=== PATIENT | male | born 1975 | race Caucasian/White ===

== ENCOUNTER 2020-03-18 14:35 | Emergency (ER) | payer MEDICARE, SELFPAY ==
[2020-03-18 14:36] VITALS: BP 128/81; PULSE 70; RESP 16; TEMP 36.6; O2SAT 100; BMI 21.7
--- NOTE | 2020-03-18 15:27 | ED.VISSUMM ---
- ER Visit Summary Date of Service: 03/18/20 Chief Complaint: Seizure History of Present Illness: The patient is a 45 M who presents after a seizure that occurred today. Patient has a history of seizures. Patient and family reports that the seizure only lasted a few seconds. Family states that when they got to the room where he was and he was already starting to wake up and try to stand. Patient denies biting his tongue. Patient denies any urinary or stool incontinence. Patient does admit to a scalp laceration on the right occipital area. Patient states he saw his neurologist 2 weeks ago and had levels of his medications drawn at that time and they were normal. Physical Examination: Vital signs are stable. Patient is afebrile. Patient is in no acute distress. Cranial nerves II through XII are intact. Strength is 5/5 bilateral in the upper and lower extremities. There are no sensory deficits noted. Heart was regular rate and rhythm. Lungs are clear and equal bilaterally. Abdomen is soft. Bowel sounds are normal. There is no tenderness. Extremities are intact. There is no calf tenderness or edema. Skin is warm and dry. There is a 2 cm full-thickness linear laceration over the right occipital scalp area. There is no bony crepitance or step-off. There are no foreign bodies noted. There is no active bleeding. Emergency Department Course and Treatment: I discussed obtaining levels of his Depakote and Dilantin with the patient and his spouse. They do not want to have levels drawn at this time since they were just drawn 2 weeks ago and were normal. I do not feel the patient needs a CT scan of his head at this time since he is not on any anticoagulants. The wound was cleaned and irrigated with copious amounts of normal saline. The wound was anesthetized with 1% lidocaine with epinephrine locally. The wound was closed with 4 saira under sterile technique. Patient tolerated the procedure well. Bacitracin dressing was applied. She was instructed to follow-up with his primary care physician in 5 to 7 days for wound recheck and staple removal. Patient and family understood and were agreeable with the plan. All questions were answered. Disposition: Discharge home Impression: 1. Scalp laceration 2. Seizure This note was generated with [employer] software. It may contain incorrect words, spelling, and punctuation that were not noted in review of the chart prior to signing ED Disposition - Plan for ED Patient: Disposition: Home or Assisted Living Diagnosis: Occipital scalp laceration, Seizure Instructions: ED Laceration: All Closures, ED Seizure, Recurrent (Adult) Additional Instructions: Follow-up with your primary care physician in 5 to 7 days for wound recheck and able removal. Return if worse in any way.
[2020-03-18] MEDS: Lidocaine 1% /Epi 1:100 (20ml) 20 ML Vial INFILT (15:36)
[2020-03-18 16:09] VITALS: PULSE 73; RESP 18; O2SAT 98
--- NOTE | 2020-03-18 16:10 | ED.RN ---
THIS NURSE REVIEWED D/C INSTRUCTIONS WITH PT AND . PT VERBALIZED UNDERSTANDING OF INSTRUCTIONS. PT DENIES FURTHER NEEDS OR QUESTIONS AT THIS TIME. PT AMBULATES FROM ROOM ON OWN WITHOUT ASSISTANCE FROM STAFF
== END 2020-03-18 16:09 | disposition home or self-care (01) ==
LOC: ED 16:16
PROVIDERS: Emergency Provider Emergency Medicine
DX: S01.01XA Laceration without foreign body of scalp, initial encounter (principal); G40.909 Epilepsy, unspecified, not intractable, without status epilepticus; X58.XXXA Exposure to other specified factors, initial encounter; Y93.9 Activity, unspecified; Y92.9 Unspecified place or not applicable; Z79.899 Other long term (current) drug therapy
CPT/HCPCS: 12001; 99283

== ENCOUNTER → 2023-06-26 | Outpatient (CLI) | payer MEDICARE, SELFPAY | END | disposition home or self-care (01) | DX: G47.33 Obstructive sleep apnea (adult) (pediatric) (principal) | CPT/HCPCS: 95810 ==

== ENCOUNTER 2024-01-03 14:21 | Emergency (ER) | payer MEDICARE, SELFPAY ==
[2024-01-03 14:23] VITALS: BP 105/79; PULSE 94; RESP 18; TEMP 36.4; O2SAT 97; BMI 23.5
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
--- NOTE | 2024-01-03 14:42 | CT_ITS ---
EXAM: CT HEAD WITHOUT INTRAVENOUS CONTRAST CLINICAL INDICATION: Head injury TECHNIQUE: Multiple axial images were obtained of the head without intravenous contrast. This CT exam was performed using one or more of the following dose reduction techniques: automated exposure control, adjustment of the mA and/or kV according to patient size, and/or use of iterative reconstruction technique. COMPARISON: No relevant prior studies available. FINDINGS: BRAIN AND EXTRA-AXIAL SPACES: Normal. Normal brain attenuation. No intra- or extra-axial hemorrhage. No acute infarct. No intracranial mass or mass effect. There is preservation of the edmond/white matter interface. Posterior fossa structures are unremarkable. Ventricles are appropriate for age. No hydrocephalus. Basal cisterns are patent. BONES/JOINTS: Normal calvarium. SINUSES: No acute sinusitis. MASTOID AIR CELLS: Normal. Clear. CT/Brain/Head without Contrast IMPRESSION: Normal CT brain without intravenous contrast. Electronically Signed: Don Nielson MD at 16:11 EDT ,
[2024-01-03 15:20] LABS: Valproic Acid (Depakene) Level 58 ug/mL (50-100)
[2024-01-03 15:43] LABS: Phenytoin (Dilantin) Level 17.6 mL (10.0-20.0)
[2024-01-03 16:22] VITALS: BP 96/66; PULSE 90; RESP 16; O2SAT 98
[2024-01-03 16:36] VITALS: BP 100/74; PULSE 82; RESP 16; TEMP 36.7; O2SAT 98
== END 2024-01-03 16:37 | disposition home or self-care (01) ==
PROVIDERS: Emergency Provider Emergency Medicine; Visit Provider Emergency Medicine
DX: R56.9 Unspecified convulsions (principal); S00.91XA Abrasion of unspecified part of head, initial encounter; V18.0XXA Pedal cycle driver injured in noncollision transport accident in nontraffic accident, initial encounter
CPT/HCPCS: 70450; 80164; 80185; 99283

== ENCOUNTER → 2024-02-06 | Outpatient (CLI) | payer MEDICARE, SELFPAY ==
[2024-02-09 17:08] LABS: Topiramate 10.2 ug/mL (2.0-25.0)
== END | disposition home or self-care (01) ==
DX: G62.9 Polyneuropathy, unspecified (principal); G60.9 Hereditary and idiopathic neuropathy, unspecified
CPT/HCPCS: 36415; 80201

== ENCOUNTER → 2024-03-20 | Outpatient (CLI) | payer MEDICARE, SELFPAY ==
--- NOTE | 2024-03-20 08:38 | BD_ITS ---
STUDY: DUAL ENERGY X-RAY ABSORPTIOMETRY / DXA REASON FOR EXAM: Male, 49 years old. M85.89 TECHNIQUE: Bone Mineral Density (BMD) measurements of lumbar spine and bilateral hips were obtained. COMPARISON: None. FINDINGS: Lumbar Spine (L1-L4): g/cm2 (1.185) / T-score (0.9) / Z-score (1.2) Findings are suggestive of normal bone density with a low fracture risk. Left Femur Total: g/cm2 (0.911) / T-score (-0.8) / Z-score (-0.5) Left Femoral Neck: g/cm2 (0.766) / T-score (-1.2) / Z-score (-0.4) Right Femur Total: g/cm2 (0.929) / T-score (-0.7) / Z-score (-0.4) Right Femoral Neck: g/cm2 (0.776) / T-score (-1.1) / Z-score (-0.4) BD/Dexa Bone Density Study IMPRESSION: The patient is considered osteopenic as outlined below according to World Arash Organization (WHO) criteria with a low fracture risk. Reference Information: The T-score is the number of standard deviations above or below the standard which is normal for young adults at their peak bone mineral density. The World Health Organization (WHO) interprets the T-scores as follows: Above -1 Normal bone density Between -1 and -2.5 Osteopenia Equal to / or below -2.5 Osteoporosis As a practical clinical guideline, osteopenia may be graded as follows: Mild -1 through -1.5 Moderate -1.6 through -2.0 Severe -2.1 through -2.4 The Z-score is the number of standard deviations above or below age-matched controls. A Z-score of less than -1.5 would be considered abnormal. References: 1. NIH Osteoporosis and Related Bone Diseases www osteo.org 2. International Society for Clinical Densitometry www iscd.org 3. National Osteoporosis Foundation www nof.org Electronically Signed: Jin Aragon MD at 12:35 EST ,
== END | disposition home or self-care (01) ==
LOC: OPBD 08:32
DX: M81.8 Other osteoporosis without current pathological fracture (principal); T50.905A Adverse effect of unspecified drugs, medicaments and biological substances, initial encounter; M85.859 Other specified disorders of bone density and structure, unspecified thigh; M85.88 Other specified disorders of bone density and structure, other site
CPT/HCPCS: 77080

== ENCOUNTER 2024-08-17 18:10 | Emergency (ER) | payer MEDICARE, SELFPAY ==
[2024-08-17 18:11] VITALS: BP 111/85; PULSE 90; RESP 18; TEMP 36.2; O2SAT 99; BMI 25.4
--- NOTE | 2024-08-17 18:22 | CT_ITS ---
PROCEDURE: BRAIN/HEAD WITHOUT CONTRAST 08/17/2024 REASON FOR EXAM: HEAD INJURY TECHNIQUE: Head CT without intravenous contrast. Coronal and Sagittal reconstruction series were provided. One or more dose reduction techniques were used (e.g., Automated exposure control, adjustment of the mA and/or kV according to patient size, use of iterative reconstruction technique. COMPARISON: None FINDINGS: * ACUTE: No acute infarct or hemorrhage. No mass effect or herniation. * BRAIN PARENCHYMA: Signal intensities are within normal limits for age. * VENTRICLES/EXTRA-AXIAL SPACES: No hydrocephalus or extra-axial fluid collections. * EXTRACRANIAL STRUCTURES: Visualized osseous structures are normal. Soft tissues are normal. CT/Brain/Head without Contrast IMPRESSION: No acute intracranial abnormality. Reading Location: BILL
--- NOTE | 2024-08-17 18:27 | EDS_ITS ---
HPI History of Present Illness Chief Complaint: Head Injury Informant: patient, spouse/S.O. and family Narrative Narrative: Here with spouse and daughter for evaluation head injury. 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 He is on Topamax, Depakote, Dilantin. He remembers walking outside due to being a nice day, he few blocks away. However cannot tell me be clear. Oriented. and daughter were out of town in [place] they came back he was in his bed and noted blood. They report it happened before with absence seizure's. He is back to normal. They state he did not have a tonic-clonic event as he would show different symptoms. Tetanus unknown. Reported little over a week ago his Dilantin level was high they readjusted his medications. He is compliant with medications. No recent illness. Tetanus Immunization: Unknown Prior similar symptoms: Yes [facility] Medical History Seizure Epilepsy Home Medications ?Medication ?Instructions ?Recorded ?Last Taken ?Type calcium 600 mg (as 1 ea PO DAILY 03/18/20 Unkno wn History carbonate)-vitamin D3 10 mcg (400 unit) capsule cetirizine 10 mg tablet 10 mg PO DAILY 03/18/20 Unkn own History divalproex 500 mg tablet,extended See Rx Instructions PO BID 03/18/20 Unknown History release 24 hr [id number]-ywlpdlrdr-vaq C-Mn 750 1 ea PO DAILY 03/18 Unknown History mg-600 mg-55 mg-5 mg tablet phenytoin sodium extended 100 mg 200 mg PO .COMPLEX Unknown History capsule topiramate 200 mg tablet 600 mg PO BID 03/18/20 Unkno wn History clorazepate dipotassium 3.75 mg 3.75 mg PO BID 5 Unknown History tablet multivitamin (Daily Multi-Vitamin 1 tab PO DAILY 08/17 Unknown History tablet) Allergy/AdvReac Type Severity Reaction Status Date / Time No Known Allergies Allergy Verified 08/17/24 18:11 Surgical History S/P placement of VNS (vagus nerve stimulation) device Social History Smoking Status: Never smoker ROS ROS ED Constitutional Constitutional ED: Denies chills, fever(s) or sweats ENT ENT ED: Denies sore throat Cardiovascular Cardiovascular: Denies chest pain, leg edema, palpitations or racing heartbeat Respiratory/Chest Respiratory/Chest: Denies cough, dyspnea or dyspnea on exertion Gastrointestinal Gastrointestinal: Denies abdominal pain, diarrhea, nausea or vomiting Genitourinary Genitourinary ED: Denies dysuria, hematuria or urinary frequency Musculoskeletal Musculoskeletal: Denies back pain, extremity pain or neck pain Integumentary Reports wounds; Denies rash Neurologic Neurologic: Denies headache(s), paresthesias or weakness EXAM Physical Exam Const Vital Signs: 08/17/24 18:11 08/17/24 18:33 08/17/24 20:40 Temperature 97.1 F L 97.8 F Temperature Source Temporal Pulse Rate 90 84 Respiratory Rate 18 16 Respiratory Effort Normal Respiratory Depth Normal Respiratory Pattern Normal Blood Pressure 111/85 H 113/74 Blood Pressure Mean 93 87 Pulse Ox 99 99 Oxygen Delivery Method Room Air Room Air Positive well nourished and well developed Constitutional Narrative: GCS 15. General Appearance ED: well developed and NAD HEENT Reports TM's clear and moist mucous membranes HEENT Narrative: 5 cm horizontal laceration posterior scalp above the occiput, there was no active bleeding. No tongue abrasion or laceration. normocephalic and atraumatic Tympanic Membrane ED: Yes TM's clear Eyes General Eye ED: Yes normal appearance of both eyes Neck full ROM Neck Narrative: No midline tenderness or step-offs. Chest Wall inspection of chest normal and palpation of chest normal Chest: Negative for tenderness Resp normal respiratory effort and normal air movement Effort and Inspection: symmetric chest movement; Negative for respiratory distress Cardio regular rate, regular rhythm and no murmurs Peripheral Pulses: pulses 2+ throughout GI normal to inspection, nondistended, normoactive bowel sounds and non-tender Palpation: Negative for guarding or rebound tenderness present Extremity normal to inspection General Extremety ED: Negative for edema or tenderness General Extremity: Negative for edema Neuro oriented x3, CN's II-XII intact bilaterally and no sensory deficits noted Sensorium / Orientation: awake and alert Skin Skin Narrative: See above MDM MDM MDM Narrative Medical decision making narrative: Interventions / MDM: Differential diagnosis: Closed head injury, scalp laceration, history of seizure disorder Diagnosis considered but do not suspect: Intracranial hemorrhage/fracture however CT negative. My EKG interpretation: N/A Imaging independently reviewed and interpreted by myself: CT brain: No acute process also read by radiology. External documents reviewed: N/A Test considered but not ordered:N/A ED course: Patient tetanus updated. 5 cm laceration with no active bleeding. Will place let cream, will send for CT head. Will check levels of his Depakote and Dilantin with history of recent toxicity. 191: CT brain interpreted myself no intracranial hemorrhage. Awaiting final read. Wound was stapled total of 6 saira. Procedure note: Verbal consent. Normal sterile conditions. Normal saline cleanse of wound after let cream. A total of 6 saira placed to the wound with good approximation. Patient tolerated the procedure well. 1950: Labs therapeutic Dilantin 14.5, slightly subtherapeutic valproic acid 44. CT brain negative. Per spouse, he was similar levels last time seeing his neurologist and they state to continue with current medications. She did not want additional doses at this time. He is due for his dose at 9:00 for which he will take at home. Wound care discussed. Outpatient follow-up with his doctor in 10 days for staple removal. All questions were answered. Patient and family Re-evaluation: stable Disposition discussed with patient/family/significant other: Case discussed with consulting clinician: N/A This note was generated with [employer] dictation software. It may contain incorrect words, spelling, and punctuation that were not noted in checking the note before signing. Lab Data Labs: Laboratory Results - last 24 hr 08/17/24 18:32 Phenytoin 14.5 Valproic Acid 44 L Radiography Diagnostic Testing: Clinical Impression(s) from Imaging Studies Brain CT 08/17/24 18:22 IMPRESSION: No acute intracranial abnormality. Reading Location: [facility] Discharge Plan Triage Chief Complaint: Head Injury ED Provider: Joesph Vivar Dx/Rx/DC Orders Clinical Impression: CHI (closed head injury), Laceration of scalp, Tetanus toxoid vaccination administered at current visit, Seizure disorder Instructions: ED Head Injury (Adult), ED Laceration Scalp Stitches or [place] Prescriptions: No Action cetirizine 10 MG tablet 10 mg PO DAILY phenytoin sodium extended 100 MG capsule 200 mg PO .COMPLEX Rx Instructions: 200 mg orally 100 mg on odd days and 200 mg on even days. 200 mg every night; divalproex 500 MG tablet extended release 24 hr See Rx Instructions PO BID Rx Instructions: 1,000 mg in the morning and 1500 mg at night orally twice a day; topiramate 200 MG tablet 600 mg PO BID [id number]-mccozhqus-ggv C-Mn 1 EACH tablet 1 ea PO DAILY calcium carbonate-vitamin D3 1 EACH capsule 1 ea PO DAILY multivitamin [Daily Multi-Vitamin] Tablet 1 tab PO DAILY clorazepate dipotassium 3.75 mg tablet 3.75 mg PO BID Primary Care Provider: EDIL GONZALEZ Referrals: EDIL GONZALEZ [Other] - Keep [facility] appointment Activity Restrictions/Additional Instructions: CT brain negative. 6 saira were placed. Dilantin level 14.5. Depakote level 44. Follow-up with your PCP in 10 days for staple removal. Print Language: Kittitian Disposition Disposition: Home, Self Care Discharge Date/Time: 08/17/24 20:41
[2024-08-17] MEDS: Lidocaine/Epi/Tetracaine 50 ML 1 APPLIC TOPICAL (18:28)
[2024-08-17] MEDS: Diphth,Pertuss(Acell),Tet Vac 0.5 ML Vial IM (18:46)
[2024-08-17 19:15] LABS: Phenytoin (Dilantin) Level 14.5 ug/mL (10.0-20.0); Valproic Acid (Depakene) Level 44 ug/mL (50-100)
[2024-08-17 20:40] VITALS: BP 113/74; PULSE 84; RESP 16; TEMP 36.6; O2SAT 99
== END 2024-08-17 20:41 | disposition home or self-care (01) ==
PROVIDERS: Emergency Provider Emergency Medicine; Visit Provider Emergency Medicine
DX: S09.90XA Unspecified injury of head, initial encounter (principal); G40.909 Epilepsy, unspecified, not intractable, without status epilepticus; S01.01XA Laceration without foreign body of scalp, initial encounter; Z23 Encounter for immunization; Z79.899 Other long term (current) drug therapy
CPT/HCPCS: 12002; 70450; 80164; 80185; 90715; 99283

== ENCOUNTER → 2024-10-03 | Outpatient (CLI) | payer MEDICARE, SELFPAY ==
[2024-10-03 12:46] LABS: Absolute Lymphocyte Count 1.56 X10^3/uL (0.83-4.51); Absolute Neutrophil Count 1.8 X10^3/uL (2.0-7.7); Basophil# 0.02 X10^3/uL; Basophil% 0.5 % (0-1); Eosinophil# 0.08 X10^3/uL; Hematocrit 41.8 % (40-54); Hemoglobin 14.2 g/dL (13.0-16.5); Lymphocyte # 1.56 X10^3/ul (0.83-4.51); Lymphocyte % 39.3 % (19-41); Mean Corpuscular Hgb 32.3 pg (27.0-32.0); Mean Platelet Vol. 10.7 fl (6.2-12.0); Monocyte# 0.51 X10^3/uL; Monocyte% 12.8 % (0-10); NRBC Flagged by Analyzer 0 % (0-5); Neutrophil # 1.79 X10^3/uL (2.7-7.7); Neutrophil % 45.1 % (47-70); Platelet Count 167 K/mm3 (150-450); RBC Distribution Width CV 11.9 % (11.6-14.6); RBC Distribution Width SD 41.9 fl (35.1-43.9)
[2024-10-03 14:21] LABS: ALB/GLOB Ratio 1.7 RATIO (0.9-2.4); AST(SGOT) 32 U/L (<=37); Alanine Aminotransfer ALT/SGPT 34 U/L (<=46); Albumin, Serum 4.1 g/dL (3.5-5.0); Alkaline Phosphatase 106 U/L (40-129); Anion Gap 11 (5-15); BUN 18 mg/dL (4-19); Calcium,Total 9.3 mg/dL (7.6-11.0); Carbon Dioxide 23.5 mmol/L (21.0-32.0); Chloride 106 mmol/L (98-108); Cholesterol 147 mg/dL (<=200); Creatinine, Serum 0.88 mg/dL (0.70-1.20); EST Glomerular Filtration Rate 104 (>60); Globulin 2.5 g/dL (2.2-4.2); Glucose 80 mg/dL (70-99); High Density Lipoprotein 51 mg/dL; Low Density Lipoprotein Calc. 69 mg/dL; Protein, Total 6.6 g/dL (5.9-8.4); Sodium Level 140 mmol/L (133-145); Total Bilirubin 0.44 mg/dL (0.00-1.30); Triglycerides 137 mg/dL; Very Low Density Lipoprotein 27 mg/dL (5-40); cholesterol:hdl ratio screen 2.88
--- OUTSIDE RECORDS SUMMARY | 2024-10-03 18:12 | XMS RPT_ITS | CCD ---
Author Organization [facility] Care Team Providers Care Box Icer Name Role Phone Mcarthur, Eb R Primary Care Provider [phone] David Enriquez Primary Care Provider Mcarthur, Eb R Primary Care Provider Pending Provider Unavailable Unavailable Mcarthur, Eb R Primary Care Provider Unavailable Unavailable Blue MCMAHON, Eb R Primary Care Physician Mcarthur, Eb R Primary Care Provider [phone] Mcarthur, Eb R Primary Care Provider Miranda Newman Unavailable Mcarthur DO, Eb Primary Care Provider [phone] MCARTHUR, EB R Primary Care Unavailable EDIL BRUSH Referring Unavailable MCARTHUR, EB R Primary Care Unavailable EDIL BRUSH Referring Unavailable MCARTHUR, EB R Primary Care Unavailable MCARTHUR, EB R Primary Care Unavailable REGINA CANTU Attending Unavailable MCARTHUR, EB R Primary Care Unavailable EDIL BRUSH Referring Unavailable Mainor Wesley Attending Unavailable Ralph Crews Attending Unavailable EDIL BRUSH Referring Unavailable German Castillo Attending Unavailable German Castillo Attending Unavailable German Castillo Admitting Unavailable EDIL BURSH Referring Unavailable EDIL BRUSH Attending Unavailable EDIL BRUSH Admitting Unavailable Mainor Wesley Attending Unavailable Dr. Joesph Vivar DO Emergency Provider EDIL BRUSH Primary Care Provider Blue FLORES, Eb Primary Care Provider [phone] EDIL BRUSH Attending Unavailable EDIL BRUSH Attending Unavailable EDIL BRUSH Attending Unavailable Dr. Joesph Vivar DO Attending Provider [phone] Diamond Diez MD Attending Provider EDIL BRUSH Primary Care Provider Unavailabl e EDIL BRUSH Referring Provider Unavailable HENNY, MAGI Referring Unavailable HENNY, MAGI Primary Care Unavailable HENNYZACKARY MODICE Attending Unavailable HENNY, MAGI Primary Care Unavailable Joesph Vivar Attending Unavailable Prateek Chavarria Attending Unavailable HENNY, MAGI Primary Care Unavailable HENNY, MAGI Referring Unavailable HENNY, MAGI Primary Care Unavailable Diamond Diez Attending Unavailable HENNY, MAGI Attending Unavailable HENNY, MAGI Referring Unavailable HENNY, MAGI Primary Care Unavailable Allergies Allergy Classification Reported Allergen(s) Allergy Type Date of Onset Reaction(s) Facility (2 sources) No Known Medication Allergies; Translations: [No Known Medication Allergies] Propensity to adverse reactions (disorder) [facility] Repository Medications Current Medications Medication Drug Class(es) Dates Sig (Normalized) Sig (Original) Calcium (6 sources) Phosphate Binder, Calcium Start: 03-03-2017 Calcium 600+D Oral, Daily, Refill(s) 0 Start Date: 03/03/17 Status: Ordered calcium carbonate 1500 mg oral tablet (12 sources) Start: 10-01-2024 take 1 tablet by mouth once daily Calcium Carbonate 600 mg calcium (1,500 mg) tablet Active 600 mg PO daily October 01, 2024 12:00am take 1 tablet by mouth once tory y calcium carbonate (OSCAL) 500 MG TABS tablet Take 500 mg by mouth daily 0 Active Calcium 600 MG T ABS Quantity: 0 Refills: 0 Ordered: 25-Oct-2018 DO Active take 1 tablet by mouth once tory y calcium carbonate (OSCAL) 500 MG TABS tablet Take 500 mg by mouth daily 0 Active carBAMazepine (4 sources) Mood Stabilizer CARBAMAZEPINE PO Take by mouth 0 Active cetirizine hydrochloride 10 mg oral tablet (20 sources) Histamine-1 Receptor Antagonist Start: 0 take 1 tablet by mouth once daily Cetirizine 10 MG tablet Active 10 mg PO DAILY March 18, 2020 1:00am Start: 03-03-2017 Zyrtec 10 mg, Daily, Refills(s) 0 Start Date: 03/03/17 Status: Ordered ZyrTEC Allergy 1 0 MG Oral Capsule Quantity: 0 Refills: 0 Ordered: 25-Oct-2018 DO Active Citric Acid-D Gluconic Acid powder (1 source) Start: 10-01-2024 Citric Acid-D Gluconic Acid powder Active NMA IRRIGATION October 01, 2024 12:00am clindamycin 150 mg oral capsule (1 source) Lincosamide Antibacterial Start: 03-03-2017 take 2 capsules by mouth four times daily clindamycin 150 mg Cap 300 mg = 2 cap(s), Oral, QID, # 56 cap(s), Refills(s) 0 Start Date: 03/03/17 Status: Ordered Cloraza (1 source) Start: 03-18-2020 take 3.75 mg by mouth once daily Cloraza Active 3.75 MG PO DAILY March 18, 2020 1:00am clorazepate dipotassium 3.75 mg oral tablet (20 sources) Benzodiazepine Start: 08-17-2024 take 1 tablet by mouth twice daily Clorazepate Dipotassium 3.75 mg tablet Active 3.75 mg PO TWICE A DAY August 17, 2024 12:00am Start: 07-25-2024 clorazepate (T ranxene) 3.75 MG tablet Indications: 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) 1 tab Q12 hours 180 tablet 1 07/25/2024 Active Start: 05-12-2023 End: 10-22-2024 take 1 tablet by mouth once clorazepate (Tranxene) 3.7 5 MG tablet Indications: 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) Take 1 tablet (3.75 mg) by mouth every 12 (twelve) hours 180 tablet 04/25/2024 07/24/2024 Discontinued (Reorder) fexofenadine hydrochloride 180 mg oral tablet (8 sources) Histamine-1 Receptor Antagonist take 1 tablet by mouth once daily fexofenadine (JERONIMO ALLERGY) 180 MG tablet Take 180 mg by mouth daily 0 Active Glucosamine Chondroitin Advanced (6 sources) Start: 7 Glucosamine Chondroitin Advanced BID, Refill(s) 0 Start Date: 03/03/17 Status: Ordered Glucosamine-Chondroit- Vit C-Mn (1 source) Start: 0 Glucosamine-Chondroi t-Vit C-Mn Active 1 EACH PO DAILY March 18, 2020 1:00am Glucosamine-Chondroit- Vit C-Mn (GLUCOSAMINE 1500 COMPLEX PO) (8 sources) Glucosamine-Marilu droi t-Vit C-Mn (GLUCOSAMINE 1500 COMPLEX PO) Take by mouth 0 Active Glucosamine-Chondroit- Vit C-Mn 1 EACH tablet (2 sources) Start: 0 take 1 tablet by mouth once daily Glucosamine-Chondroi t-Vit C-Mn 1 EACH tablet Active 1 NMA PO DAILY March 18, 2020 1:00am GLUCOSAMINE-CHONDROIT- VIT C-MN PO (12 sources) GLUCOSAMINE-MARILU DROI T-VIT C-MN PO Take by mouth Active Multiple Vitamin (Multi Vitamin Daily) tablet (12 sources) Multiple Vitamin (Multi Vitamin Daily) tablet 1 (one) time each day at the same time Active Multivitamin (Daily Multi-Vitamin) tablet (2 sources) Start: 5 Multivitamin (Daily Multi-Vitamin) tablet Active 1 {tbl} PO DAILY August 17, 2024 12:00am phenytoin sodium 100 mg extended release oral capsule (20 sources) Anti-epileptic Agent Start: 3 phenytoin (DILANTIN) ER capsule 100 mg Start: 03-18-2020 End: 10-01-2024 take 2 tablets by mouth once daily at bedtime Phenytoin Sodium Extended 100 mg capsule Active 100 mg PO .COMPLEX October 01, 2024 1:01pm 200 mg orally 2tabs qhs,; 1tab qod alternating w/ 2 tabs Start: 03-18-2020 Dilantin 100 M G capsule Indications: Epilepsy, generalized tonic-clonic, intractable (CMS/HCC) 2 caps Q12 hours 360 capsule 3 05/14/2024 Active Start: 03-18-2020 take 200 mg by mouth twice sue ly Phenytoin Sodium Extended Active 200 MG PO TWICE A DAY March 18, 2020 1:00am Start: 03-03-2017 take 2 capsules by m outh twice daily Dilantin 100 mg Cap-ER 200 mg = 2 cap(s), Oral, BID, Refills(s) 0 Start Date: 03/03/17 Status: Ordered topiramate 200 mg oral table t (20 sources) Start: 10-01-2024 Topiramate 200 mg tablet Active 600 mg PO .COMPLEX October 01, 2024 1:02pm 2tabs in the am 3tabs at night Start: 05-12-2023 topiramate (To pamax) 200 MG tablet Indications: Epilepsy, generalized tonic-clonic, intractable (CMS/HCC) 3 tabs Q12 180 tablet 5 07/05/2024 Active Start: 03-18-2020 take 600 mg by mouth twice daily Topiramate Active 600 MG PO TWICE A DAY March 18, 2020 1:00am Start: 03-03-2017 End: 10-01-2024 take 3 tablets by mouth twice daily Topiramate 200 MG tablet Discontinued 600 mg PO TWICE A DAY March 18, 2020 1:00am October 01, 2024 1:03pm 24 hr divalproex sodium 500 mg extended release oral tablet (20 sources) Mood Stabilizer, Anti-epileptic Agent Start: 10-01-2024 take 1 tablet by mouth twice daily in the morning, then take 3 tablets by mouth in the evening Divalproex 500 mg tablet extended release 24 hr Active 0 PO TWICE A DAY October 01, 2024 1:00pm 1250mg in the am, 1500mg pm 2.5tabs 3tabs Start: 05-14-2024 take 1 tablet by avril th every twenty-four hours, then take 2 tablets by mouth once daily in the morning, then take 3 tablets by mouth once daily in the evening Depakote ER 500 MG 24 hr tablet Indications: Epilepsy, generalized tonic-clonic, intractable (CMS/HCC) tablets Orally 2 QAM and 3 QPM for 90 days 450 tablet 3 05/14/2024 Active Start: 02-21-2024 take 1 tablet by avril th every twenty-four hours, then take 2 tablets by mouth once daily in the morning, then take 3 tablets by mouth once daily in the evening Depakote ER 500 MG 24 hr tablet Indications: Epilepsy, generalized tonic-clonic, intractable (CMS/HCC) tablets Orally 2 QAM and 3 QPM for 90 days 450 tablet 02/21/2024 Active Start: 05-12-2023 take 1 tablet by avril th every twenty-four hours, then take 2 tablets by mouth once daily in the morning, then take 3 tablets by mouth once daily in the evening Depakote ER 500 MG 24 hr tablet Indications: Epilepsy, generalized tonic-clonic, intractable (CMS/HCC) tablets Orally 2 QAM and 3 QPM for 90 days 450 tablet 3 05/12/2023 Active Start: 03-18-2020 End: 10-01-2024 Divalproex 500 MG tablet ext ended release 24 hr Discontinued 0 PO TWICE A DAY March 18, 2020 1:00am October 01, 2024 1:03pm 1,000 mg in the morning and 1500 mg at night orally twice a day; Start: 03-03-2017 take 2 tablets by ri ut twice daily Depakote ER 500 mg Tab-ER 1,000 mg = 2 tab(s), Oral, BID, Refills(s) 0 Start Date: 03/03/17 Status: Ordered take 3 tablets by mo ut twice daily divalproex (DEPAKOTE ER) 500 MG extended release tablet Take 3 tablets by mouth 2 times daily 0 Active take 2 tablets by ri ut twice daily Depakote 500 MG Oral Tablet Delayed Release TAKE 2 TABLETS TWICE DAILY Quantity: 0 Refills: 0 Ordered: 25-Oct-2018 DO Active Completed/Discontinued Medications Medication Drug Class(es) Dates Sig (Normalized) Sig (Original) calcium carbonate 1500 mg / cholecalciferol 0.01 mg oral capsule (3 sources) Vitamin D Start: 03-18-2020 End: 10-01-2024 Calcium Carbonate-Vitamin D3 1 EACH capsule Discontinued 1 NMA PO DAILY March 18, 2020 1:00am October 01, 2024 12:59pm Start: 03-18-2020 Calcium Carbon ate-Vitamin D3 Active 1 EACH PO March 18, 2020 1:00am cephalexin 500 mg oral capsule (3 sources) Cephalosporin Antibacterial Start: 11-30-2022 End: 12-07-2022 cephALEXin (KEFLEX) capsule 500 mg Start: 10-07-2021 take 1 capsule by mo ut twice daily Cephalexin 500 MG Oral Capsule Take 1 capsule twice daily Quantity: 6 Refills: 0 Ordered: 07-Oct-2021 Alice Herndon MD Start : 07-Oct-2021 Active Glucosamine Chondr 1500 Comp lx Oral Capsule (3 sources) Glucosamine Marilu dr 1500 Complx Oral Capsule Quantity: 0 Refills: 0 Ordered: 25-Oct-2018 DO Active Problems Active Problems Problem Classification Problem Date Documented Da te Episodic/Chronic Administrative/social admission (1 source) First encounter by subject; Translations: [Persons encountering health services in other specified circumstances] 10-01-2024 Episodic Deficiency and other anemia (3 sources) Other dietary vitamin B12 deficiency anemia; Translations: [Other dietary vitamin B12 deficiency anemia] Onset: 08-03-2023 Episodic Disorders of lipid metabolism (2 sources) Hyperlipidemia, unspecified; Translations: [Hyperlipidemia, unspecified] Onset: 08-03-2023 Chronic Epilepsy; convulsions (20 sources) Partial epilepsy with impairment of consciousness; Translations: [Localization-relate d (focal) (partial) epilepsy and epileptic syndromes with complex partial seizures, without mention of intractable epilepsy] Onset: 08-19-2002 02-27-2023 Chronic Epilepsy; convulsions (13 sources) Seizure; Translations: [Unspecified convulsions] Onset: 11-30-2022 01-08-2022 Episodic Headache; including migraine (2 sources) Headache; including migraine; Translations: [Headache, unspecified] Onset: 08-03-2023 Immunizations and screening for infectious disease (4 sources) Encounter for screening for infections with a predominantly sexual mode of transmission; Translations: [Tetanus toxoid vaccination given] Onset: 08-03-2023 Episodic Nutritional deficiencies (2 sources) Pyridoxine deficiency; Translations: [Pyridoxine deficiency] Onset: 08-03-2023 Episodic Open wounds of head; neck; and trunk (9 sources) Laceration of head; Translations: [Laceration without foreign body of unspecified part of head, initial encounter] Onset: 01-08-2022 Episodic Osteoporosis (5 sources) Osteoporosis; Translations: [Other osteoporosis without current pathological fracture] Onset: 04-22-2024 02-14-2024 Chronic Other aftercare (1 source) Surgical follow-up; Translations: [Encounter for removal of sutures] Onset: 02-27-2023 Episodic Other connective tissue disease (1 source) Pain in left lower limb; Translations: [Pain in left leg] Onset: 02-27-2023 Episodic Other connective tissue disease (2 sources) Myalgia, unspecified site; Translations: [Myalgia, unspecified site] Onset: 08-03-2023 Episodic Other injuries and conditions due to external causes (6 sources) Abrasion; Translations: [Other injury of unspecified body region, initial encounter] Episodic Other injuries and conditions due to external causes (2 sources) Unspecified injury of head, initial encounter; Translations: [Unspecified injury of head, initial encounter] Onset: 02-17-2023 Episodic Other injuries and conditions due to external causes (2 sources) Closed injury of head; Translations: [Unspecified injury of head, initial encounter] 08-17-2024 Episodic Other nervous system disorders (3 sources) Polyneuropathy, unspecified; Translations: [Polyneuropathy, unspecified] Onset: 08-03-2023 Chronic Other nervous system disorders (2 sources) Hereditary and idiopathic neuropathy, unspecified; Translations: [Hereditary and idiopathic neuropathy, unspecified] Onset: 08-03-2023 Chronic Other screening for suspected conditions (not mental disorders or infectious disease) (4 sources) Other specified abnormal findings of blood chemistry; Translations: [Encounter for screening for cardiovascular disorders] Onset: 08-03-2023 Episodic Peripheral and visceral atherosclerosis (2 sources) Generalized atherosclerosis; Translations: [Generalized atherosclerosis] Onset: 08-03-2023 Chronic Residual codes; unclassified (20 sources) Past history of procedure; Translations: [Other postprocedural status] Onset: 02-05-2023 02-05-2023 Chronic Residual codes; unclassified (18 sources) Obstructive sleep apnea syndrome; Translations: [Obstructive sleep apnea (adult) (pediatric)] Onset: 01-13-2012 02-05-2023 Chronic Superficial injury; contusion (2 sources) Abrasion of head; Translations: [Abrasion of unspecified part of head, initial encounter] 01-11-2024 Episodic Syncope (1 source) Syncope and collapse; Translations: [Syncope and collapse] Onset: 01-08-2022 Episodic Past or Other Problems Problem Classification Problem Date Documented Da te Episodic/Chronic Diseases of mouth; excluding dental (14 sources) Uvular hypertrophy; Translations: [Other lesions of oral mucosa] Onset: 02-05-2023 02-05-2023 Episodic E Codes: Fall (1 source) Unspecified fall, initial encounter; Translations: [Unspecified fall, initial encounter] Onset: 02-17-2023 Episodic Other bone disease and musculoskeletal deformities (18 sources) Osteopenia; Translations: [Other specified disorders of bone density and structure, multiple sites] Onset: 02-05-2023 02-05-2023 Episodic Other injuries and conditions due to external causes (1 source) Other injury of unspecified body region, initial encounter; Translations: [Other injury of unspecified body region, initial encounter] Onset: 11-30-2022 Episodic Skull and face fractures (7 sources) Closed fracture of nasal bones; Translations: [Fracture of nasal bones, initial encounter for closed fracture] Onset: 11-30-2022 Episodic Results Test Name Value Interpretation Reference Range Facility Internal Medicine Office Vis iton 09-30-2024 Internal Medicine Office Visit [facility] [address] [place] [address] [place] [address] OFFICE VISIT Date of Service: 10/01/24 MR#: [id number] Acct: [id number] Name: VAMSI JUAREZ Rep #: [id number] : 1975 Provider: Dr. 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 Person Required: No Accompanied by: Is patient in pain?: No Allergies No Known Allergies Allergy (Verified 10/01/24 12:54) Medications ???Medication ???Instructions ???Recorded ???Confirmed ???Type cetirizine 10 mg tablet 10 mg PO DAILY 03/18/20 10/01/24 H istory [id number]-[id number]-ktf C-Mn 750 1 ea PO DAILY 03/18/20 10/01/24 History mg-600 mg-55 mg-5 mg tablet clorazepate dipotassium 3.75 mg 3.75 mg PO BID 08/17/24 10/01/24 H istory tablet multivitamin (Daily Multi-Vitamin 1 tab PO DAILY 08/17/24 10/01/24 History tablet) calcium carbonate 600 mg PO QDAY 10/01/24 10/01/24 H istory citric acid-D gluconic acid ea irrigation 10/01/24 10/01/24 Hi story irrigation powder divalproex 500 mg tablet,extended See Rx Instructions PO BID 10/01/24 History release 24 hr phenytoin sodium extended 100 mg 100 mg PO .COMPLEX 10/01/24 History capsule topiramate 200 mg tablet 600 mg PO .COMPLEX 10/01/24 History Nurse's Note: See's Dr. Brush for neurology-[facility] alek cote. Sees [facility] for vagus nerve stimulator. Has appointment this fall for battery replacement. Previous PCP Dr. Mcarthur from [place]. Monday evening when he peed he had a few incidences of white squishy chunks upon urination. Pt did not have pain, flank pain, pressure, odor to urine,hematuria,pyuria prior. It has not happened before or since. [facility] Medical History (Updated 10/01/24 @ 13:[address] Diamond Diez MD) Sleep apnea Seizure Epilepsy Surgical History S/P vasectomy S/P nasal septoplasty H/O uvulectomy S/P placement of VNS (vagus nerve stimulation) device Family History Mother Gynecologic cancer Diabetes Hypertension Malignant hyperthermia due to anesthesia Hyperlipidemia Sleep apnea Macular degeneration Grandmother Macular degeneration Social History (Updated 10/01/24 @ 13:[address] 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 1. Little interest or pleasure in doing things: not at all 2. Feeling down, depressed, or hopeless: not at all 3. Trouble falling or staying asleep, or sleeping too much: not at all 4. Feeling tired or having little energy: not at all 5. Poor appetite or overeating: not at all 6. Feeling bad about yourself - or that you are a failure or have let yourself and your family down: not at all 7. Trouble concentrating on things, such as reading the newspaper or watching television: not at all 8. Moving or speaking so slowly that other people could have noticed? - Or the opposite - being so fidgety or restless that you have been moving around a lot more than usual: not at all 9. Thoughts that you would be better off or of hurting yourself in some way: not at all Total score: 0 If you checked off any problems, how difficult have these problems made it for you to do your work, take care of things at home, or get along with other people?: not difficult at all Source: Developed by Drs. Buck Aguilar, Katiana Hoskins, Zeferino Le and colleagues, with an educational nereida from [employer]. HPI HPI Details: VAMSI JUAREZ, is a 49 M who presents to the office today to establish care. He was seeing Dr. Mcarthur and last saw them about a year ago. He is due for some routine blood work and states he did a cologuard last year. He doesn't want any COVID/flu vaccines. He is otherwise up to date on his immunizations. (more content not included)... Normal [facility] Brain/Head without Contrasto n 08-17-2024 Brain/Head without Contrast [facility] Imaging Services [address] [place], [place] [id number] Brain/Head without Contrast MR#: [id number] Acct: [id number] Name: VAMSI JUAREZ Rep #: [id number] : 1975 M 49 From: Joaquín banda MD PCP: EDIL BRUSH Status: [facility] ER Study: Brain/Head without Contrast Date of Exam: 08/08 Exam# [id number] Ordering Dr: Joesph Vivar DO PROCEDURE: BRAIN/HEAD WITHOUT CONTRAST 08/17/2024 REASON FOR EXAM: HEAD INJURY TECHNIQUE: Head CT without intravenous contrast. Coronal and Sagittal reconstruction series were provided. One or more dose reduction techniques were used (e.g., Automated exposure control, adjustment of the mA and/or kV according to patient size, use of iterative reconstruction technique. COMPARISON: None FINDINGS: * ACUTE: No acute infarct or hemorrhage. No mass effect or herniation. * BRAIN PARENCHYMA: Signal intensities are within normal limits for age. * VENTRICLES/EXTRA-AXIAL SPACES: No hydrocephalus or extra-axial fluid collections. * EXTRACRANIAL STRUCTURES: Visualized osseous structures are normal. Soft tissues are normal. CT/Brain/Head without Contrast IMPRESSION: No acute intracranial abnormality. Reading Location: [facility] CC: Dr. Joesph Vivar DO; EDIL BRUSH Senior Project Architect: Signed Normal [facility] Emergency Department Summary on 08-17-2024 Emergency Department Summary [facility] Medical Records Department [address] [place] [id number] Emergency Department Summary 08/17/24 MR#: [id number] Acct: [id number] Name: VAMSI JUAREZ Rep #: [id number] : 1975 49 From: Joesph Bearden PCP: EDIL BRUSH Status:[facility] ER Location: ED HPI History of Present Illness Chief Complaint: Head Injury Informant: patient, spouse/S.O. and family Narrative Narrative: Here with spouse and daughter for evaluation head injury. 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 He is on Topamax, Depakote, Dilantin. He remembers walking outside due to being a nice day, he few blocks away. However cannot tell me be clear. Oriented. and daughter were out of town in [place] they came back he was in his bed and noted blood. They report it happened before with absence seizure's. He is back to normal. They state he did not have a tonic-clonic event as he would show different symptoms. Tetanus unknown. Reported little over a week ago his Dilantin level was high they readjusted his medications. He is compliant with medications. No recent illness. Tetanus Immunization: Unknown Prior similar symptoms: Yes [facility] Medical History Seizure Epilepsy Home Medications ???Medication ???Instructions ???Recorded ???Last Taken ???Type calcium 600 mg (as 1 ea PO DAILY 03/18/20 Unknown His tory carbonate)-vitamin D3 10 mcg (400 unit) capsule cetirizine 10 mg tablet 10 mg PO DAILY 03/18/20 Unknown Hi story divalproex 500 mg tablet,extended See Rx Instructions PO BID Unknown History release 24 hr rjpdbhglepf-cupytbeye-bze C-Mn 750 1 ea PO DAILY 03/18/20 Unknown H istory mg-600 mg-55 mg-5 mg tablet phenytoin sodium extended 100 mg 200 mg PO .COMPLEX 03/18/20 Unknow n History capsule topiramate 200 mg tablet 600 mg PO BID 03/18/20 Unknown His tory clorazepate dipotassium 3.75 mg 3.75 mg PO BID 08/17/24 Unknown Hi story tablet multivitamin (Daily Multi-Vitamin 1 tab PO DAILY 08/17/24 Unknown H istory tablet) Allergy/AdvReac Type Severity Reaction Status Date / Time No Known Allergies Allergy Verified 08/17/24 18:11 Surgical History S/P placement of VNS (vagus nerve stimulation) device Social History Smoking Status: Never smoker ROS ROS ED Constitutional Constitutional ED: Denies chills, fever(s) or sweats ENT ENT ED: Denies sore throat Cardiovascular Cardiovascular: Denies chest pain, leg edema, palpitations or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 6-46 [facility] Comment on above: Performed By: #### 2 [id number] #### [facility] [address] [place] [address] Anion gap [Moles/Vol] 10 mmol/L Normal 6-16 [facility] Comment on above: Performed By: #### 2 [id number] #### [facility] [address] [place] [address] AST [Catalytic activity/Vol] 24 Int._Unit/L Normal 5-43 [facility] Comment on above: Performed By: #### 2 [id number] #### [facility] [address] [place] [address] Bilirubin [Mass/Vol] 0.5 mg/dL Normal 0.0-1.1 [facility] Comment on above: Performed By: #### 2 [id number] #### [facility] [address] [place] [address] Calcium [Mass/Vol] 8.7 mg/dL Low 8.9-11.1 [facility] Comment on above: Performed By: #### 2 [id number] #### [facility] [address] [place] [address] Chloride [Moles/Vol] 111 mmol/L Normal 101-111 [facility] Comment on above: Performed By: #### 2 [id number] #### [facility] [address] [place] [address] CO2 [Moles/Vol] 24 mmol/L Normal 21-31 [facility] Comment on above: Performed By: #### 2 [id number] #### [facility] [address] [place] [address] Creatinine [Mass/Vol] 0.7 mg/dL Normal 0.5-1.3 [facility] Comment on above: Performed By: #### 2 [id number] #### [facility] [address] [place] [address] Globulin (S) [Mass/Vol] 2.4 g/dL Normal 1.4-4.0 [facility] Comment on above: Performed By: #### 2 [id number] #### [facility] [address] [place] [address] Glucose [Mass/Vol] 100 mg/dL Normal 55-199 [facility] Comment on above: Performed By: #### 2 [id number] #### [facility] [address] [place] [address] Potassium [Moles/Vol] 3.8 mmol/L Normal 3.5-5.3 [facility] Comment on above: Performed By: #### 2 [id number] #### [facility] [address] [place] [address] Protein [Mass/Vol] 6.4 g/dL Normal 6.0-7.8 [facility] Comment on above: Performed By: #### 2 [id number] #### [facility] [address] [place] [address] Sodium [Moles/Vol] 141 mmol/L Normal 135-145 [facility] Comment on above: Performed By: #### 2 [id number] #### [facility] [address] [place] [address] Urea nitrogen [Mass/Vol] 21 mg/dL Normal 5-21 [facility] Comment on above: Performed By: #### 2 [id number] #### [facility] [address] [place] [address] Urea nitrogen/Creatinine [Mass ratio] 30 No Units High 10-20 [facility] Comment on above: Performed By: #### 2 [id number] #### [facility] [address] [place] [address] CT Head or Brain w/o Contras ton 10-20-2023 CT Head or Brain w/o Contrast Exam Date/Time: 10/20/2023 10:42 EDT Reason for Exam: Head trauma, moderate-severe;Other (please specify) Report IMPRESSION: NO ACUTE INTRACRANIAL PROCESS. EXAMINATION: CT of the brain without contrast HISTORY: Head pain after trauma. Seizure. COMPARISON: CT brain 01/08/2022 TECHNIQUE: Multiple axial images were obtained of the brain from the skull base through the vertex. Multiplanar reformats were obtained. FINDINGS: Brain volume is age appropriate. Ventricular morphology is within normal limits. Voss-white matter differentiation is preserved. No acute hemorrhage or abnormal extra-axial fluid collection. Basal cisterns are patent. No mass effect or midline shift. The visualized paranasal sinuses and mastoid air cells are clear. Postsurgical laceration near the vertex. No radiopaque foreign body. Calvarium is intact. All CT scans at this facility use dose modulation, iterative reconstruction, and/or weight based dosing when appropriate to reduce radiation dose to as low as reasonably achievable. Ordering Provider: Mainor Wesley FINAL REPORT Dictated: 10/20/2023 10:48 am Buck Diaz DO Signed (Electronic Signature): 10/20/2023 10:48 am Signed by: Buck Diaz DO Transcribed by: DELORIS Technologist: TAMMY Normal [facility] CT Spine Cervical w/o Contra ston 10-20-2023 CT Spine Cervical w/o Contrast Exam Date/Time: 10/20/2023 10:42 EDT Reason for Exam: Neck trauma, dangerous injury mechanism;Other (please specify) Report IMPRESSION: NO ACUTE FRACTURE OR MALALIGNMENT. EXAM: CT SCAN OF THE CERVICAL SPINE HISTORY: Neck pain after trauma COMPARISON: CT cervical spine 01/08/2022 TECHNIQUE: Routine axial CT images and multiplanar reformatted images of the cervical spine were obtained. FINDINGS: No acute fracture or malalignment. Atlantodental interval is preserved. Cervical spine vertebral body heights are maintained. Intervertebral disc spaces are preserved. No prevertebral soft tissue swelling. Lung apices are clear. Vagal nerve stimulator noted. All CT scans at this facility use dose modulation, iterative reconstruction, and/or weight based dosing when appropriate to reduce radiation dose to as low as reasonably achievable. Ordering Provider: Mainor Wseley FINAL REPORT Dictated: 10/20/2023 10:53 am Buck Diaz DO Signed (Electronic Signature): 10/20/2023 10:53 am Signed by: Buck Diaz DO Transcribed by: DELORIS Technologist: TAMMY Normal [facility] Capillary Glucose POCon 10-08 Glucose [Mass/Vol] 109 mg/dL High 55-99 [facility] Comment on above: Performed By: #### 2 [id number] #### [facility] [address] [place] [address] Dilantinon 10-20-2023 Phenytoin Total 10.9 microgram/mL Normal 10.0-19.9 [facility] Comment on above: Performed By: #### 2 [id number] #### [facility] [address] [place] [address] ED Clinical Summaryon 2023 ED Clinical Summary ED Clinical Summary [address] [address] ED Clinical Summary Person Information Name: VAMSI JUAREZ [facility] Age: 48 Years : 1975 Sex: Male Language: American PCP: Eb Mcarthur III, DO Marital Status: Phone: [phone] Visit Id: Visit Reason: Scalp laceration; Fall; Seizure; FALL, HEAD INJURY Speciality: Acuity: 2 Enc Type: Emergency Med Service: Emergency Arrival: 10/20/2023 09:33:13 Discharge: 10/20/2023 12:56:58 LOS: 000 03:23 Checkin: 10/20/2023 09:33:13 Checkout: 10/20/2023 12:56:58 Dispo Type: Home (Routine DC) EVENTS: Event Name Event Status Request Date/Time Start Date/Time Complete Date/Time Arrive Complete 10/20/2023 09:33:13 10/20/2023 09:33:13 10/20/2023 09:33:13 Document Home Meds Request 10/20/2023 09:33:13 Triage Complete 10/20/2023 09:33:13 10/20/2023 09:40:57 10/20/2023 09:40:57 Bed Assign Complete 10/20/2023 09:34:30 10/20/2023 09:34:30 10/20/2023 09:34:30 Dr Exam Complete 10/20/2023 09:34:30 10/20/2023 09:34:42 10/20/2023 09:34:42 RN Exam Complete 10/20/2023 09:34:30 10/20/2023 10:47:43 10/20/2023 10:47:43 Registration Complete 10/20/2023 09:34:42 10/20/2023 09:38:23 10/20/2023 09:38:23 Patient Care Complete 10/20/2023 09:37:52 10/20/2023 10:48:14 Reg Complete Request 10/20/2023 09:38:23 Reg Bed Request Complete 10/20/2023 09:38:23 10/20/2023 09:38:23 10/20/2023 09:38:23 Pending Labs Complete 10/20/2023 09:44:06 10/20/2023 10:28:40 Lab Complete 10/20/2023 09:44:06 10/20/2023 10:28:40 Meds Admin Complete 10/20/2023 09:44:06 10/20/2023 10:49:28 CT Complete 10/20/2023 09:44:06 10/20/2023 10:08:40 10/20/2023 10:42:49 EKG Complete 10/20/2023 09:44:23 10/20/2023 09:57:50 Pending Labs Complete 10/20/2023 10:05:14 10/20/2023 10:05:14 10/20/2023 10:28:40 Lab Complete 10/20/2023 10:05:14 10/20/2023 10:05:14 10/20/2023 10:28:40 Pending Labs Complete 10/20/2023 10:05:55 10/20/2023 10:05:55 10/20/2023 10:05:56 Meds Admin Complete 10/20/2023 10:30:22 10/20/2023 11:43:30 Fall Risk Request 10/20/2023 10:47:44 Discharge Complete 10/20/2023 12:00:26 10/20/2023 12:57:04 10/20/2023 12:57:04 Pending Labs Complete 10/20/2023 12:11:41 10/20/2023 12:11:41 10/20/2023 12:11:42 Transfer Complete 10/20/2023 12:57:04 10/20/2023 12:57:04 10/20/2023 12:57:04 ADDRESS: [address] [place] [phone] PHYS DOC NOTES: MEDICAL INFORMATION: Prescriptions Given: Medications to Continue with No Changes Other Medications calcium-vitamin D (Calcium 600+D) By Mouth every day. cetirizine (Zyrtec) 10 Milligram every day. chondroitin/glucosamine/m ethylsulfonylmethane (Glucosamine Chondroitin Advanced) 2 times a day. divalproex sodium (Depakote ER 500 mg Tab-ER) 2 Tablets By Mouth 2 times a day. phenytoin (Dilantin 100 mg Cap-ER) 2 Capsules By Mouth 2 times a day. topiramate (Topamax 200 mg Tab) 3 Tablets By Mouth 2 times a day. PATIENT EDUCATION INFORMATION: Instructions: Sutures, [place], or Adhesive Wound Closure; Seizure, Adult, [id number]-[id number]; Head Injury, Adult, Bddf-[id number] Follow up: With: Address: When: EDIL BRUSH [address], [address] [address] [phone] Business (2) In 3 days 10/23/2023 With: Address: When: Eb Mcarthur [address] [place] [address] Business (1) Within 5 to 7 days Comments: for staple removal DIAGNOSIS: Scalp laceration; Seizure Normal [facility] ED Clinical Summary ED Clinical Summary [facility] [address] [place], [place] [address] ED Clinical Summary Person Information Name: VAMSI JUAREZ [place] Age: 48 Years : 1975 Sex: Male Language: American PCP: Eb Mcarthur III, DO Marital Status: Phone: [phone] Visit Id: Visit Reason: Scalp laceration; Fall; Seizure; FALL, HEAD INJURY Speciality: Acuity: 2 Enc Type: Emergency Med Service: Emergency Arrival: 10/20/2023 09:33:13 Discharge: LOS: 000 02:06 Checkin: 10/20/2023 09:33:13 Checkout: Dispo Type: EVENTS: Event Name Event Status Request Date/Time Start Date/Time Complete Date/Time Arrive Complete 10/20/2023 09:33:13 10/20/2023 09:33:13 10/20/2023 09:33:13 Document Home Meds Request 10/20/2023 09:33:13 Triage Complete 10/20/2023 09:33:13 10/20/2023 09:40:57 10/20/2023 09:40:57 Bed Assign Complete 10/20/2023 09:34:30 10/20/2023 09:34:30 10/20/2023 09:34:30 Dr Exam Complete 10/20/2023 09:34:30 10/20/2023 09:34:42 10/20/2023 09:34:42 RN Exam Complete 10/20/2023 09:34:30 10/20/2023 10:47:43 10/20/2023 10:47:43 Registration Complete 10/20/2023 09:34:42 10/20/2023 09:38:23 10/20/2023 09:38:23 Patient Care Complete 10/20/2023 09:37:52 10/20/2023 10:48:14 Reg Complete Request 10/20/2023 09:38:23 Reg Bed Request Complete 10/20/2023 09:38:23 10/20/2023 09:38:23 10/20/2023 09:38:23 Pending Labs Complete 10/20/2023 09:44:06 10/20/2023 10:28:40 Lab Complete 10/20/2023 09:44:06 10/20/2023 10:28:40 Meds Admin Complete 10/20/2023 09:44:06 10/20/2023 10:49:28 CT Complete 10/20/2023 09:44:06 10/20/2023 10:08:40 10/20/2023 10:42:49 EKG Complete 10/20/2023 09:44:23 10/20/2023 09:57:50 Pending Labs Complete 10/20/2023 10:05:14 10/20/2023 10:05:14 10/20/2023 10:28:40 Lab Complete 10/20/2023 10:05:14 10/20/2023 10:05:14 10/20/2023 10:28:40 Pending Labs Complete 10/20/2023 10:05:55 10/20/2023 10:05:55 10/20/2023 10:05:56 Meds Admin Request 10/20/2023 10:30:22 Fall Risk Request 10/20/2023 10:47:44 ADDRESS: [address] [place] [id number] PHYS DOC NOTES: MEDICAL INFORMATION: Prescriptions Given: Medications to Continue with No Changes Other Medications calcium-vitamin D (Calcium 600+D) By Mouth every day. cetirizine (Zyrtec) 10 Milligram every day. chondroitin/glucosamine/m ethylsulfonylmethane (Glucosamine Chondroitin Advanced) 2 times a day. divalproex sodium (Depakote ER 500 mg Tab-ER) 2 Tablets By Mouth 2 times a day. phenytoin (Dilantin 100 mg Cap-ER) 2 Capsules By Mouth 2 times a day. topiramate (Topamax 200 mg Tab) 3 Tablets By Mouth 2 times a day. PATIENT EDUCATION INFORMATION: Instructions: Head Injury, Adult, Ydcz-tl-[id number]; Seizure, Adult, Fbdj-hq-[id number]; Sutures, Saira, or Adhesive Wound Closure Follow up: With: Address: When: EDIL BRUSH [address], [address] [address] [phone] Business (2) In 3 days 10/23/2023 With: Address: When: Eb Najeraers [address] [place] [address] Business (1) Within 5 to 7 days Comments: for staple removal DIAGNOSIS: Scalp laceration; Seizure Normal [facility] ED Note-Physicianon 10-20-19 ED Note-Physician ED Note-Physician Basic Information Time Seen: Mainor Wesley DO 10/20/2023 09:34 Chief Complaint pt has hx of seizure with vagal nerve stimulator, sees dr morales. states think he had a seizure fell around 0900 at home with on stone in [facility]. denies blood thinners. pt arrived with ccollar in place. laceration on the back of head. History of Present Illness 48 male presents emergency department by EMS with what sounds like seizure. History somewhat limited as the patient is amnestic to this but does have history of seizure disorder. This occurred around 9:00 this morning he was out in the garage they are moving and he did have what sounds like seizure that led to a fall with head injury to his posterior occiput on the [facility]. Family then called for EMS. Patient's not on any blood thinner he does complain of a headache. EMS applied c-collar prior to arrival. He believes he is on either Depakote or Dilantin but cannot clearly articulate this it could be some postictal confusion. He is denying any chest pain difficulty breathing no abdominal pain no pain or injury to the upper or lower extremities no numbness or weakness he did not know this was coming on. He cannot tell me the last seizure he cannot tell me how long this seizure lasted. Last tetanus is unknown. No other aggravating or relieving factors no other associated symptoms no other prior treatments or complaints. Family: Reviewed and noncontributory Social: lives at home Review of systems negative unless otherwise specified in the HPI. Physical Exam Vitals & Measurements T: 37 ?C(Oral) HR: 80(Peripheral) RR: 16 BP: 114/79 SpO2: 99% HT: 183 cm WT: 76.2 kg BMI: 22.75 Nurses note and vital signs reviewed and noted. General: The patient appears well and in no apparent distress. Patient is resting comfortably on cart. GCS = 15. Skin: Patient does have vertically oriented 4 cm laceration to the posterior occiput consistent with stated history no gaping no step-off or crepitus appreciated no depression Head: Normocephalic, laceration as described above Neck: Supple, trachea mid-line, no tenderness, no lymphadenopathy. No cervical spinal tenderness. The patient has no step-offs or crepitus noted Eyes: PERRLA, EOMI ENT: No lu sign, no raccoon eyes, no blood in posterior oropharynx, no dental injuries Cardiovascular: Regular Rate and Rhythm, normal peripheral perfusion Respiratory: no distress, no accessory muscle use, no obvious wheezing Chest Wall: no tenderness, no flail chest, contusion, abrasion, or signs of trauma. Back: Back has no evidence of trauma, including contusion, abrasion, swelling or ecchymosis. The patient had no evidence of step-offs or crepitus noted. No tenderness to palpation. Musculoskeletal: normal ROM, no tenderness, no swelling. Pulses at femoral, DP, PT, and popiteal were 2+ bilaterally. Moves all four extremities in all modalities with 5/5 strength. GI: Soft, no tenderness to palpation, no masses appreciated. No rebound, guarding, or rigidity noted. Neurological: A&O, normal equal social services counselor strength, normal speech, normal coordination, normal motor, normal sensory. Psychiatric: Cooperative but a little bit confused may be consistent with postictal state Procedure Area was cleansed using soap and water. 4 saira were placed. Patient tolerated this procedure well educated on wound care and saira to be removed in 5-7 days. Medical Decision Making Workup in the ER has been reviewed and noted. CT of the brain and C-spine read by the radiologist as no acute pathology. Tetanus is updated here labs reviewed and noted. Patient does have low end of normal levels on Dilantin and Depakote therefore he is given small bolus of each. Family did arrive and states that this seizure did not last very long and was not a [place] seizure. They do not wish to change the medication dosing at this time and I think this is reasonable as they do have close follow-up with her neurologist. We did confirm that the patient takes the following medications: Dilantin 200 mg twice daily Depakote 1000 mg in the morning 1500 mg before bed Topamax 600 mg twice daily Laceration repaired with saira and family educated on wound care. C-collar is cleared clinically and radiographically and patient is discharged home to follow-up. Assessment/Plan Scalp laceration (S01.01XA: Laceration without foreign body of scalp, initial encounter) Seizure (R56.9: Unspecified convulsions) Orders: fosphenytoin + Sodium Chloride 0.9% intravenous solution 500 mL, 762 mg = 15.24 mL, Injection, IV Piggyback, Once, Stop date 10/20/23 10:29:00 EDT, STAT, Start date 10/20/23 10:29:00 EDT, 1030.48 mL/hr, Infuse over 30 minute(s) tetanus/diphtheria/pertus sis, acel (Tdap), 0.5 mL, Injection, Intramuscular-Immunizatio n, Once, Stop date 10/20/23 9:42:00 EDT, STAT, Start date 10/20/23 9:42:00 EDT valproic acid + Sodium Chloride 0.9% intravenous solution 50 mL, 500 mg = 5 mL, Injection, I (more content not included)... Normal [facility] Comment on above: Result Comment: Elec tronically Signed By: Mainor Wesley DO\.br\Date and Time Signed: 10/20/23 12:00 EDT ED Patient Summaryon 024 ED Patient Summary ED Patient Summary [address] [address] Patient Discharge Instructions Person Information Name: VAMSI JUAREZ Age: 48 Years Arrival Date: 10/20/2023 09:33:13 Discharge Diagnosis: Scalp laceration; Seizure Primary Care Physician: Eb Mcarthur III, DO Provider Information Primary Provider: Mainor Wesley DO Advanced Shop Hand:None The exam and treatment you received in the Emergency Department were for an urgent problem and are not intended as complete care. It is important that you follow up with a doctor, nurse practitioner, or physician?s development assistant for ongoing care. If your symptoms become worse or you do not improve as expected and you are unable to reach your usual health care provider, you should return to the Emergency Department. We are available 24 hours a day. VAMSI JUAREZ has been given the following list of patient education materials, prescriptions and follow-up instructions: Follow-up Instructions: With: Address: When: EDIL BRUSH [address], [address] [address] [phone] Business (2) In 3 days 10/23/2023 With: Address: When: Eb Mcarthur [address] [place] [address], [facility], [place] [address] Business (1) Within 5 to 7 days Comments: for staple removal In the event that this physician does not participate in your insurance network, please consult with your insurance company to find a nearby participating provider. Patient Education Materials: Sutures, Saira, or Adhesive Wound Closure; Seizure, Adult, Bkks-ub-Bjaz; Head Injury, Adult, Hytk-mh-Kgth A MESSAGE TO ALL PATIENTS REGARDING OPIOIDS PRESCRIPTION OPIOIDS: WHAT YOU NEED TO KNOW Prescription opioids can be used to help relieve tazlsfhm-sj-hrjvbw pain and are often prescribed following a surgery or injury, or for certain health conditions. These medications can be an important part of the treatment but also come with serious risks. It is important to work with your healthcare provider to make sure you are getting the safest, most effective care. WHAT ARE THE RISKS AND SIDE EFFECTS OF OPIOID USE? Prescription opioids carry serious risks of addiction and overdose, especially with prolonged use. An opioid overdose, often marked by slowed breathing, can cause sudden . The use of prescription opioids can have a number of side effects as well, even when taken as directed: ? Tolerance?meaning you might need to take more of the medication for the same pain relief ? Physical dependence?meaning you have symptoms of withdrawal when a medication is stopped ? Increased sensitivity to pain ? Constipation ? Nausea, vomiting, and dry mouth ? Sleepiness and dizziness ? Confusion ? Depression ? Low levels of testosterone that can result in lower sex drive, energy, and strength ? Itching and sweating RISKS ARE GREATER WITH: ? History of drug misuse, substance use disorder, or overdose ? Mental health conditions (such as depression or anxiety) ? Sleep apnea ? Older age (65 years and older) ? Avoid alcohol while taking prescription opioids. Also, unless specifically advised by your health care provider, medications to avoid include: ? Benzodiazepines (such as Xanax or Valium) ? Muscle relaxants (such as Soma or Flexeril) ? Hypnotics (such as Ambien or Lunesta) ? Other prescription opioids KNOW YOUR OPTIONS Talk to your health care provider about ways to manage your pain that don?t involve prescription opioids. Some of these options may actually work better and have fewer risks and side effects. Options may include: ? Pain relievers such as acetaminophen, ibuprofen, and naproxen ? Some medication that are also used for depression or seizures ? Physical therapy and exercise ? Cognitive behavioral therapy, a psychological, goal-directed approach, in which patients learn how to modify physical, behavioral, and emotional triggers of pain and stress. IF YOU ARE PRESCRIBED OPIOIDS FOR PAIN: ? Never take opioids in greater amounts or more often than prescribed. ? Follow up with your primary health care provider. o Work together to create a plan on how to manage your pain. o Talk about ways to help manage your pain that don?t involve prescription opioids. o Talk about any and all concerns and side effects. ? Help prevent misuse and abuse o Never sell or share prescription opioids. o Never use another person?s prescription opioids. ? Store prescription opioids in a secure place and out of reach of others (this may include visitors, children, friends, and family). ? Safely dispose of unused prescription opioids: Find your community drug take-back program or your pharmacy mail-back program, or flush them down the toilet, following guidance from the Food and Drug Administration (www.fda.gov/Drugs/Resour cesForYou). ? Visit (more content not included)... Normal [facility] ED Patient Summary ED Patient Summary [address] [address] Patient Discharge Instructions Person Information Name: VAMSI JUAREZ Age: 48 Years Arrival Date: 10/20/2023 09:33:13 Discharge Diagnosis: Scalp laceration; Seizure Primary Care Physician: Eb Mcarthur III, DO Provider Information Primary Provider: Mainor Wesley DO Advanced Shop Hand:None The exam and treatment you received in the Emergency Department were for an urgent problem and are not intended as complete care. It is important that you follow up with a doctor, nurse practitioner, or physician?s development assistant for ongoing care. If your symptoms become worse or you do not improve as expected and you are unable to reach your usual health care provider, you should return to the Emergency Department. We are available 24 hours a day. VAMSI JUAREZ has been given the following list of patient education materials, prescriptions and follow-up instructions: Follow-up Instructions: With: Address: When: EDIL BRUSH [address], [address] [address] [phone] Business (2) In 3 days 10/23/2023 With: Address: When: Eb Mcarthur [address] [place] [address], [facility], [place] [address] Business (1) Within 5 to 7 days Comments: for staple removal In the event that this physician does not participate in your insurance network, please consult with your insurance company to find a nearby participating provider. Patient Education Materials: Head Injury, Adult, Pofh-tg-Gcrg; Seizure, Adult, Fyhl-fl-Arhw; Sutures, Saira, or Adhesive Wound Closure A MESSAGE TO ALL PATIENTS REGARDING OPIOIDS PRESCRIPTION OPIOIDS: WHAT YOU NEED TO KNOW Prescription opioids can be used to help relieve bwzphstb-df-ccrdap pain and are often prescribed following a surgery or injury, or for certain health conditions. These medications can be an important part of the treatment but also come with serious risks. It is important to work with your healthcare provider to make sure you are getting the safest, most effective care. WHAT ARE THE RISKS AND SIDE EFFECTS OF OPIOID USE? Prescription opioids carry serious risks of addiction and overdose, especially with prolonged use. An opioid overdose, often marked by slowed breathing, can cause sudden . The use of prescription opioids can have a number of side effects as well, even when taken as directed: ? Tolerance?meaning you might need to take more of the medication for the same pain relief ? Physical dependence?meaning you have symptoms of withdrawal when a medication is stopped ? Increased sensitivity to pain ? Constipation ? Nausea, vomiting, and dry mouth ? Sleepiness and dizziness ? Confusion ? Depression ? Low levels of testosterone that can result in lower sex drive, energy, and strength ? Itching and sweating RISKS ARE GREATER WITH: ? History of drug misuse, substance use disorder, or overdose ? Mental health conditions (such as depression or anxiety) ? Sleep apnea ? Older age (65 years and older) ? Avoid alcohol while taking prescription opioids. Also, unless specifically advised by your health care provider, medications to avoid include: ? Benzodiazepines (such as Xanax or Valium) ? Muscle relaxants (such as Soma or Flexeril) ? Hypnotics (such as Ambien or Lunesta) ? Other prescription opioids KNOW YOUR OPTIONS Talk to your health care provider about ways to manage your pain that don?t involve prescription opioids. Some of these options may actually work better and have fewer risks and side effects. Options may include: ? Pain relievers such as acetaminophen, ibuprofen, and naproxen ? Some medication that are also used for depression or seizures ? Physical therapy and exercise ? Cognitive behavioral therapy, a psychological, goal-directed approach, in which patients learn how to modify physical, behavioral, and emotional triggers of pain and stress. IF YOU ARE PRESCRIBED OPIOIDS FOR PAIN: ? Never take opioids in greater amounts or more often than prescribed. ? Follow up with your primary health care provider. o Work together to create a plan on how to manage your pain. o Talk about ways to help manage your pain that don?t involve prescription opioids. o Talk about any and all concerns and side effects. ? Help prevent misuse and abuse o Never sell or share prescription opioids. o Never use another person?s prescription opioids. ? Store prescription opioids in a secure place and out of reach of others (this may include visitors, children, friends, and family). ? Safely dispose of unused prescription opioids: Find your community drug take-back program or your pharmacy mail-back program, or flush them down the toilet, following guidance from the Food and Drug Administration (www.fda.gov/Drugs/Resour cesForYou). ? Visit (more content not included)... Normal [facility] Ethanolon 10-20-2023 Ethanol Lvl <10 Normal <=11 [facility] Comment on above: Performed By: #### [id number] #### [facility] Laboratory [address] [place] [address] HEMATOLOGYOrdered By: SYSTEM SYSTEM on 10-20-2023 Basophils/100 WBC (Bld) 0.5 % Normal 0.0 - 2.0 % Remisol Heme Basophils/Leukocytes Auto (Bld) [Pure # fraction] 0.0 E9/L Normal 0.0 - 0.2 E9/L Remisol Heme Eosinophils (Bld) [#/Vol] 0.0 E9/L Normal 0.0 - 0.5 E9/L Remisol Heme Eosinophils/100 WBC (Bld) 1.0 % Normal 0.0 - 8.0 % Remisol Heme Erythrocyte distribution width (RBC) [Ratio] 13.3 % Normal 10.9 - 14.2 % Remisol Heme Hematocrit (Bld) [Volume fraction] 39.3 % Normal 37.7 - 49.0 % Remisol Heme Hemoglobin (Bld) [Mass/Vol] 13.3 g/dL Low 13.5 - 17.5 gm/dL Remisol Heme Lymphocytes (Bld) [#/Vol] 1.2 E9/L Normal 1.0 - 4.0 E9/L Remisol Heme Lymphocytes/100 WBC (Bld) 24.7 % Normal 14.0 - 50.0 % Remisol Heme MCH (RBC) [Entitic mass] 31.7 pg Normal 27.0 - 34.0 pg Remisol Heme MCHC (RBC) [Mass/Vol] 33.9 g/dL Normal 31.4 - 36.0 gm/dL Remisol Heme MCV (RBC) [Entitic vol] 93.3 fL Normal 80.0 - 100.0 fL Remisol Heme Monocytes (Bld) [#/Vol] 0.6 E9/L Normal 0.2 - 1.0 E9/L Remisol Heme Monocytes/100 WBC (Bld) 12.6 % Normal 4.0 - 14.0 % Remisol Heme Neutrophils (Bld) [#/Vol] 2.9 E9/L Normal 2.0 - 7.5 E9/L Remisol Heme Neutrophils/100 WBC (Bld) 61.2 % Normal 36.0 - 75.0 % Remisol Heme Platelet mean volume (Bld) [Entitic vol] 8.2 fL Normal 6.4 - 10.8 fL Remisol Heme Platelets (Bld) [#/Vol] 134.0 E9/L Low 150.0 - 500.0 E9/L Remisol Heme RBC (Bld) [#/Vol] 4.2 E12/L Low 4.3 - 5.9 E12/L Remisol Heme WBC corrected for nucl RBC Auto (Bld) [#/Vol] 4.7 E9/L Normal 4.0 - 11.0 E9/L Remisol Heme Valproic Acidon 10-20-2023 Valpro Acid Lvl 76 microgram/mL Normal 50-99 [facility] Comment on above: Performed By: #### [id number] #### [facility] Laboratory [address] [place] [address] eGFRon 10-20-2023 eGFR 112 mL/min/1.73 m2 Normal >=59 [facility] Comment on above: Order Comment: Order added by Discern Expert. Performed By: #### 1 [id number] #### [facility] Laboratory [address] [place] [address] BD Bone Density DEXAon 08-16 BD Bone Density DEXA Exam Date/Time: 08/15/2023 10:41 EDT Reason for Exam: M85.89 Other specified disorders of bone density and structure, multiple sites Report IMPRESSION: OSTEOPENIA. The 10 year probability (FRAX) of a major osteoporotic fracture based on the left femoral neck bone marrow density is: 3.6%, and hip fracture 0.3%. EXAM: BD Bone Density DEXA DATE: 08/15/2023 10:17 AM CLINICAL HISTORY: M85.89 Other specified disorders of bone density and structure, multiple sites. COMPARISON: Most recently 02/22/2018. COMMENTS: The lumbar spine and both hips were scanned. The mean bone mineral density from L1 to L4 is 1.393 g/cm2 and this value is 1.4 standard of deviation above the standard reference value for a young adult. Bone mineral density of the left femoral neck is 0.922 g/cm2 and this value is -1.1 standard of deviation below the standard reference value. Bone mineral density of the right femoral neck is 0.981 g/cm2 and this value is -0.7 standard of deviation below the standard reference value. These values meet WHO criteria for osteopenia. When compared to the most recent prior exam, there has been a nonsignificant 0.2% decrease in bone mineral density from L1 to L4, a nonsignificant 1.1% increase in bone mineral density of the left femoral neck, and a significant 4.5% increase in bone mineral density of the right femoral neck. RECOMMENDATIONS: 1. All patients should optimize her calcium and vitamin D intake. 2. Consider FDA-approved medical therapies in postmenopausal women and minimal age 50 years and older, based on the following: - hip or vertebral (clinical or morphometric) fracture. - T-score less than or equal to -2.5 at the femoral neck or spine after the appropriate evaluation to exclude secondary causes. - Low bone density (T score between -1.0 and -2.5 at the femoral neck or spine) and a 10 year probability of hip fracture greater than or equal to 3% or a 10-year probability of a major osteoporosis-related fracture greater than or equal to Report 20% based on FRAX calculation. - Clinician judgment and/or patient preferences may indicate treatment for palpable attenuation fracture probability is above or below these levels. - Further guidance on treatment can be found at the National Osteoporosis Foundation's website: bonesource.org 3. Patients with diagnosis of osteoporosis or high risk for fracture. There are irregular bone mineral density tests. For patients eligible for Medicare, routine testing is allowed once every 2 years. Testing frequency can be increased to 1 year for patient's history of rapidly progressing disease, those who are receiving or discontinuing medical therapy to restore bone mass or have additional risk factors. Ordering Provider: EDIL BRUSH FINAL REPORT Dictated: 08/17/2023 4:20 pm Jaren Moreno MD Signed (Electronic Signature): 08/17/2023 4:20 pm Signed by: Jaren Moreno MD Transcribed by: DELOIRS Technologist: LEESA [facility] Consent for Treatmenton Consent for Treatment [id number] [facility] Physician Orderon 08-10-2023 Physician Order [id number] Normal [facility] Phenytoin, Free And Totalon 08-06-2023 Percent Free Phenytoin 10.9 % Normal 8.0-14.0 [facility] Comment on above: Result Comment: INTE RPRETIVE INFORMATION: Phenytoin, Free And Total Phenytoin - Total Therapeutic: 10.0-20.0 ug/mL Toxic: Greater than 30.0 ug/mL Phenytoin - Free Level Therapeutic: 1.0-2.5 ug/mL Toxic: Greater than 2.5 ug/mL Phenytoin - Percent Free 8.0-14.0% The therapeutic range is based on serum pre-dose (trough) draw at steady-state concentration. Free phenytoin may be important to monitor in patients with altered or unpredictable protein binding capacity because phenytoin is highly bound (greater than 90 percent) at therapeutic concentrations. Phenytoin is also subject to drug-drug interactions due to displacement of protein binding and extensive metabolism. Cross-reactivity with metabolites may account for differences in phenytoin concentrations among analytical methods. Calculating percent free attempts to minimize differences in assay cross-reactivity and may be useful in dose optimization. Performed By: [facility] [address] [place] [address] City Dispatcher: Elio Cornejo MD, PhD CLIA Number: [id number] Phenytoin Free Level 1.4 ug/mL Normal 1.0-2.5 [facility] Total Phenytoin 12.8 ug/mL Normal 10.0-20.0 [facility] Valproic Acid, Free and Tota jean pierre 08-06-2023 Valproic Acid, Free 9 ug/mL Normal 7-23 [facility] Valproic Acid, Percent Free 14 % Normal 5-18 [facility] Comment on above: Result Comment: INTE RPRETIVE INFORMATION: VPA-percent Free Valproic Acid, Total Therapeutic Range: 50-125 ug/mL Toxic: Greater than 150 ug/mL Valproic Acid, Free Therapeutic Range: 7-23 ug/mL Toxic: Greater than 30 ug/mL VPA-percent Free Therapeutic Range: 5-18 percent Free valproic acid may be important to monitor in patients with altered or unpredictable protein binding capacity because valproic acid exhibits variable, dose-dependent protein binding. Valproic acid is also subject to drug-drug interactions due to displacement of protein binding. Calculating percent free attempts to minimize differences in test cross-reactivity and may be useful in dose optimization. Adverse effects may include headache, somnolence and dizziness. Performed By: [facility] [address] [place] [address] City Dispatcher: Elio Cornejo MD, PhD CLIA Number: [id number] Valproic Acid, Total 62 ug/mL Normal 50-125 [facility] Topiramateon 08-04-2023 Topiramate 21.2 ug/mL Critically high 5.0-20.0 [facility] Comment on above: Result Comment: INTE RPRETIVE INFORMATION: Topiramate Therapeutic range: 5.0-20.0 ug/mL Toxic: Not well established Pharmacokinetics varies widely, particularly with co-medications, age, and/or compromised renal function. Adverse effects may include somnolence, fatigue, and dizziness. Performed By: [facility] [address] [id number] City Dispatcher: Elio Cornejo MD, PhD CLIA Number: [id number] Physician Orderon 05-08-2023 Physician Order [id number] Rosanna Estevez [facility] Ambulatory Visit Summaryon 1 04-29-2022 Ambulatory Visit Summary VAMSI JUAREZ :1975 Visit Date:02/27/2023 Ambulatory Visit Instructions Your Diagnosis Encounter for staple removal Left leg pain Your Care Team Attending Physician - German Castillo PA-C Primary Care Physician - Eb Mcarthur III, DO This Is Your Medications List Contact prescribing physician if questions or concerns calcium-vitamin D (Calcium 600+D) cetirizine (Zyrtec) chondroitin/glucosamine/m ethylsulfonylmethane (Glucosamine Chondroitin Advanced) divalproex sodium (Depakote ER 500 mg Tab-ER) phenytoin (Dilantin 100 mg Cap-ER) topiramate (Topamax 200 mg Tab) Procedures Performed Vagus nerve stimulator. Discharge Vitals Temperature (Oral) 36.7 ?C Heart Rate (Peripheral) 73 Blood Pressure 116/72 Height 183 cm Height 72 in Weight 80.2 kg Weight 176.44 lb BMI 23.95 Medications What How Much When Instructions Unchanged calcium-vitamin D (Calcium 600+D) By Mouth Every day Contact prescribing physician if questions or concerns Unchanged cetirizine (Zyrtec) 10 Milligram Every day Contact prescribing physician if questions or concerns Unchanged chondroitin/ glucosamine/ methylsulfonylmethane (Glucosamine Chondroitin Advanced) 2 times a day Contact prescribing physician if questions or concerns Unchanged divalproex sodium (Depakote ER 500 mg Tab-ER) 2 Tablets By Mouth 2 times a day Contact prescribing physician if questions or concerns Unchanged phenytoin (Dilantin 100 mg Cap-ER) 2 Capsules By Mouth 2 times a day Contact prescribing physician if questions or concerns Unchanged topiramate (Topamax 200 mg Tab) 3 Tablets By Mouth 2 times a day Contact prescribing physician if questions or concerns Medications and Immunizations Administered Not Given influenza virus vaccine, inactivated, Postpone due to refusal SARS-CoV-2 mRNA (jayden 5y-11y) vac, Postpone due to refusal Allergies No Known Medication Allergies Problems Ongoing - Any problem that you are currently receiving treatment for. Abrasion Closed fracture of nasal bones Partial epilepsy with impairment of consciousness Historical - Any problem that you are no longer receiving treatment for. Seizure Patient Survey You may receive a survey via text or e-mail asking about your office visit. Please share your experience with us by completing your survey. We appreciate your feedback and thank you for choosing us for your care. Education Materials Contusion A contusion is a deep bruise. Contusions are the result of a blunt injury to tissues and muscle fibers under the skin. The injury causes bleeding under the skin. The skin overlying the contusion may turn blue, purple, or yellow. Minor injuries will give you a painless contusion, but more severe injuries cause contusions that may stay painful and swollen for a few weeks. Follow these instructions at home: Pay attention to any changes in your symptoms. Let your health care provider know about them. Take these actions to relieve your pain. Managing pain, stiffness, and swelling ? Use resting, icing, applying pressure (compression), and raising (elevating) the injured area. This is often called the RICE strategy. ? Rest the injured area. Return to your normal activities as told by your health care provider. Ask your health care provider what activities are safe for you. ? If directed, put ice on the injured area: ? Put ice in a plastic bag. ? Place a towel between your skin and the bag. ? Leave the ice on for 20 minutes, 2?3 times per day. ? If directed, apply light compression to the injured area using an elastic bandage. Make sure the bandage is not wrapped too tightly. Remove and reapply the bandage as directed by your health care provider. ? If possible, raise (elevate) the injured area above the level of your heart while you are sitting or lying down. General instructions ? Take gyuv-kyl-gsooujj and prescription medicines only as told by your health care provider. ? Keep all follow-up visits as told by your health care provider. This is important. Contact a health care provider if: ? Your symptoms do not improve after several days of treatment. ? Your symptoms get worse. ? You have difficulty moving the injured area. Get help right away if: ? You have severe pain. ? You have numbness in a hand or foot. ? Your hand or foot turns pale or cold. Summary ? A contusion is a deep bruise. ? Contusions are the result of a blunt injury to tissues and muscle fibers under the skin. ? It is treated with rest, ice, compression, and elevation. You may be given sywq-hqh-djiaxbg medicines for pain. ? Contact a health care provider if your symptoms do not improve, or get worse. ? Get help right away if you have severe pain, have numbness, or the area turns pale or cold. This information is not intended to replace advice given to you (more content not included)... Normal [facility] Patient Educationon 02-28-20 Patient Education Dermatology Suture Removal, Care After The following information offers guidance on how to care for yourself after your procedure. Your health care provider may also give you more specific instructions. If you have problems or questions, contact your health care provider. What can I expect after the procedure? After your stitches (sutures) are removed, it is common to have: ? Some discomfort and swelling in the area. ? Slight redness in the area. Follow these instructions at home: If you have a dressing: ? Wash your hands with soap and water for at least 20 seconds before and after you change your bandage (dressing). If soap and water are not available, use hand plaster form maker. ? Change your dressing as told by your health care provider. If your dressing becomes wet or dirty, or develops a bad smell, change it as soon as possible. ? If your dressing sticks to your skin, pour warm, clean water over it until it loosens and can be removed without pulling apart the wound edges. Pat the area dry with a soft, clean towel. Do not rub the wound because that may cause bleeding. Wound care ? Check your wound every day for signs of infection. Check for: ? More redness, swelling, or pain. ? Fluid or blood. ? New warmth, a rash, or hardness at the wound site. ? Pus or a bad smell. ? Wash your hands with soap and water for at least 20 seconds before and after touching your wound. If soap and water are not available, use hand plaster form maker. ? Keep the wound area dry and clean. Clean and pat the wound dry as told by your health care provider. ? Apply cream or ointment only as told by your health care provider. ? If skin glue or adhesive strips were applied after sutures were removed, leave these closures in place. They may need to stay in place for 2 weeks or longer. If adhesive strip edges start to loosen and curl up, you may trim the loose edges. Do not remove adhesive strips completely unless your health care provider tells you to do that. ? Continue to protect the wound from injury. ? Do not pick at your wound. Picking can cause an infection. Bathing ? Do not take baths, swim, or use a hot tub until your health care provider approves. Ask your health care provider if you may take showers. ? Follow these steps for showering: ? If you have a dressing, remove it before getting into the shower. ? In the shower, allow soapy water to get on the wound. Avoid scrubbing the wound. ? When you get out of the shower, dry the wound by patting it with a clean towel. ? Reapply a dressing over the wound, if needed. Scar care When your wound has completely healed, help decrease the size of your scar by: ? Wearing sunscreen over the scar or covering it with clothing when you are outside. New scars get sunburned easily, which can make scarring worse. ? Gently massaging the scarred area. This can decrease scar thickness. General instructions ? Take pmbr-zhw-elnjbtf and prescription medicines only as told by your health care provider. ? Keep all follow-up visits. This is important. Contact a health care provider if: ? You have more redness, swelling, or pain around your wound. ? You have fluid or blood coming from your wound. ? You have new warmth, a rash, or hardness at the wound site. ? You have pus or a bad smell coming from your wound. ? Your wound opens up. Get help right away if: ? You have a fever or chills. ? You have red streaks coming from your wound. Summary ? After your sutures are removed, it is common to have some discomfort and swelling in the area. ? Wash your hands with soap and water before you change your bandage (dressing). ? Keep the wound area dry and clean. Do not take baths, swim, or use a hot tub until your health care provider approves. This information is not intended to replace advice given to you by your health care provider. Make sure you discuss any questions you have with your health care provider. Document Revised: 07/20/2021 Document Reviewed: 07/20/2021 [employer] Patient Education ? 2022 [employer] [facility] Contusion A contusion is a deep bruise. Contusions are the result of a blunt injury to tissues and muscle fibers under the skin. The injury causes bleeding under the skin. The skin overlying the contusion may turn blue, purple, or yellow. Minor injuries will give you a painless contusion, but more severe injuries cause contusions that may stay painful and swollen for a few weeks. Follow these instructions at home: Pay attention to any changes in your symptoms. Let your health care provider know about them. Take these actions to relieve your pain. Managing pain, stiffness, and swelling ? Use resting, icing, applying pressure (compression), and raising (elevating) the injured area. This is often called the RICE strategy. ? Rest the injured area. Return to your normal activities as told by your health care provider. (more content not included)... Normal [facility] XR Femur Min 2 Views Lefton 02-27-2023 XR Femur Min 2 Views Left Exam Date/Time: 02/27/2023 18:51 EST Reason for Exam: left upper leg pain;Fall Report IMPRESSION: NO ACUTE OSSEOUS ABNORMALITY. EXAMINATION: XR Femur Min 2 Views Left HISTORY: Lower extremity pain since a fall COMPARISON: None available TECHNIQUE: AP and lateral views of the left femur FINDINGS: No acute or aggressive abnormality of the left femur. No hip dislocation. No posttraumatic soft tissue abnormality identified by radiography. Ordering Provider: German Castillo FINAL REPORT Dictated: 02/27/2023 6:52 pm Buck Diaz DO Signed (Electronic Signature): 02/27/2023 6:52 pm Signed by: Buck Diaz DO Transcribed by: DELORIS Technologist: EBONIE Technical Comments Radiation Dose: Kar in mGy = . DAP = . Normal [facility] XR Tib/Fib Left 2 Viewon XR Tib/Fib Left 2 View Exam Date/Time: 02/27/2023 18:51 EST Reason for Exam: left lower leg pain and bruising;Fall Report IMPRESSION: NO ACUTE OSSEOUS ABNORMALITY. EXAMINATION: X-ray tibia and fibula, 2 view HISTORY: Lower extremity pain after a fall TECHNIQUE: AP and lateral views of the left tibia and fibula COMPARISON: None available FINDINGS: No acute or aggressive abnormality of the tibia or fibula. Soft tissues appear within normal limits. Ordering Provider: German Castillo FINAL REPORT Dictated: 02/27/2023 6:58 pm Buck Diaz DO Signed (Electronic Signature): 02/27/2023 6:58 pm Signed by: Buck Diaz DO Transcribed by: DELORIS Technologist: EBONIE Technical Comments Radiation Dose: Ka,r in mGy = . DAP = . Normal [facility] CT CERVICAL SPINE WO CONTRAS Ton 02-17-2023 CT CERVICAL SPINE WO CONTRAST EXAMINATION: CT OF THE CERVICAL SPINE WITHOUT CONTRAST 02/17/2023 6:12 pm TECHNIQUE: CT of the cervical spine was performed without the administration of intravenous contrast. Multiplanar reformatted images are provided for review. Automated exposure control, iterative reconstruction, and/or weight based adjustment of the mA/kV was utilized to reduce the radiation dose to as low as reasonably achievable. COMPARISON: None. HISTORY: ORDERING SYSTEM PROVIDED HISTORY: Fall off ladder with LOC and seizure-like activity TECHNOLOGIST PROVIDED HISTORY: Reason for exam:->Fall off ladder with LOC and seizure-like activity Decision Support Exception - unselect if not a suspected or confirmed emergency medical condition->Emergency Medical Condition ([place]) What reading provider will be dictating this exam?->CRC FINDINGS: BONES/ALIGNMENT: There is no acute fracture or traumatic malalignment. DEGENERATIVE CHANGES: No significant degenerative changes. SOFT TISSUES: There is no prevertebral soft tissue swelling. IMPRESSION: No acute abnormality of the cervical spine. Interpreted by: Luis Manuel Leonard MD Signed by: Luis Manuel Leonard MD 02/17/23 Final result Normal [facility] CT HEAD WO CONTRASTon 2022 CT HEAD WO CONTRAST EXAMINATION: CT OF THE HEAD WITHOUT CONTRAST 02/17/2023 6:12 pm TECHNIQUE: CT of the head was performed without the administration of intravenous contrast. Automated exposure control, iterative reconstruction, and/or weight based adjustment of the mA/kV was utilized to reduce the radiation dose to as low as reasonably achievable. COMPARISON: None. HISTORY: ORDERING SYSTEM PROVIDED HISTORY: Fall off ladder with LOC and seizure-like activity TECHNOLOGIST PROVIDED HISTORY: Reason for exam:->Fall off ladder with LOC and seizure-like activity Has a code stroke or stroke alert been called?->No Decision Support Exception - unselect if not a suspected or confirmed emergency medical condition->Emergency Medical Condition ([place]) What reading provider will be dictating this exam?->CRC FINDINGS: BRAIN/VENTRICLES: There is no acute intracranial hemorrhage, mass effect or midline shift. No abnormal extra-axial fluid collection. The voss-white differentiation is maintained without evidence of an acute infarct. There is no evidence of hydrocephalus. ORBITS: The visualized portion of the orbits demonstrate no acute abnormality. SINUSES: The visualized paranasal sinuses and mastoid air cells demonstrate no acute abnormality. SOFT TISSUES/SKULL: No acute abnormality of the visualized skull or soft tissues. IMPRESSION: No acute intracranial abnormality. Interpreted by: Luis Manuel Leonard MD Signed by: Luis Manuel Leonard MD 02/17/23 Final result Normal [facility] XR CHEST PORTABLEon 02-18-20 XR CHEST PORTABLE EXAMINATION: ONE XRAY VIEW OF THE CHEST 02/17/2023 6:26 pm COMPARISON: 02/27/2016 HISTORY: ORDERING SYSTEM PROVIDED HISTORY: Fall off a ladder with LOC TECHNOLOGIST PROVIDED HISTORY: Reason for exam:->Fall off a ladder with LOC What reading provider will be dictating this exam?->CRC FINDINGS: The lungs are without acute focal process. There is no effusion or pneumothorax. The cardiomediastinal silhouette is without acute process. The osseous structures are without acute process. IMPRESSION: No acute process. Interpreted by: Luis Manuel Leonard MD Signed by: Luis Manuel Leonard MD 02/17/23 Final result Normal [facility] Phenytoin, Free And Totalon 02-03-2023 Percent Free Phenytoin 13.4 % Normal 8.0-14.0 [facility] Comment on above: Order Comment: CALL doctor [id number] tel. [phone], Result Comment: INTE RPRETIVE INFORMATION: Phenytoin, Free And Total Phenytoin - Total Therapeutic: 10.0-20.0 ug/mL Toxic: Greater than 30.0 ug/mL Phenytoin - Free Level Therapeutic: 1.0-2.5 ug/mL Toxic: Greater than 2.5 ug/mL Phenytoin - Percent Free 8.0-14.0% The therapeutic range is based on serum pre-dose (trough) draw at steady-state concentration. Free phenytoin may be important to monitor in patients with altered or unpredictable protein binding capacity because phenytoin is highly bound (greater than 90 percent) at therapeutic concentrations. Phenytoin is also subject to drug-drug interactions due to displacement of protein binding and extensive metabolism. Cross-reactivity with metabolites may account for differences in phenytoin concentrations among analytical methods. Calculating percent free attempts to minimize differences in assay cross-reactivity and may be useful in dose optimization. Performed By: [facility] [address] [place] [id number] City Dispatcher: Elio Cornejo MD, PhD CLIA Number: [id number] Phenytoin Free Level 1.7 ug/mL Normal 1.0-2.5 [facility] Comment on above: Order Comment: CALL doctor [id number] tel. [phone], Total Phenytoin 12.6 ug/mL Normal 10.0-20.0 [facility] Comment on above: Order Comment: CALL doctor [id number] tel. [phone], Topiramateon 02-03-2023 Topiramate 20.7 ug/mL Critically high 5.0-20.0 [facility] Comment on above: Order Comment: CALL doctor [id number] tel. [phone], Result Comment: INTE RPRETIVE INFORMATION: Topiramate Therapeutic range: 5.0-20.0 ug/mL Toxic: Not well established Pharmacokinetics varies widely, particularly with co-medications, age, and/or compromised renal function. Adverse effects may include somnolence, fatigue, and dizziness. Performed By: [facility] [address] [place] [id number] City Dispatcher: Elio Cornejo MD, PhD CLIA Number: [id number] Valproic Acid, Free and Tota jean pierre 02-03-2023 Valproic Acid, Free 7 ug/mL Normal 7-23 [facility] Comment on above: Order Comment: CALL doctor [id number] tel. [phone], Valproic Acid, Percent Free 11 % Normal 5-18 [facility] Comment on above: Order Comment: CALL doctor [id number] tel. [phone], Result Comment: INTE RPRETIVE INFORMATION: VPA-percent Free Valproic Acid, Total Therapeutic Range: 50-125 ug/mL Toxic: Greater than 150 ug/mL Valproic Acid, Free Therapeutic Range: 7-23 ug/mL Toxic: Greater than 30 ug/mL VPA-percent Free Therapeutic Range: 5-18 percent Free valproic acid may be important to monitor in patients with altered or unpredictable protein binding capacity because valproic acid exhibits variable, dose-dependent protein binding. Valproic acid is also subject to drug-drug interactions due to displacement of protein binding. Calculating percent free attempts to minimize differences in test cross-reactivity and may be useful in dose optimization. Adverse effects may include headache, somnolence and dizziness. Performed By: [facility] [address] [place] [address] City Dispatcher: Elio Cornejo MD, PhD CLIA Number: [id number] Valproic Acid, Total 70 ug/mL Normal 50-125 [facility] Comment on above: Order Comment: CALL doctor [id number] tel. [phone], CT FACIAL BONES WO CONTRASTo n 11-30-2022 CT FACIAL BONES WO CONTRAST EXAMINATION: CT OF THE FACE WITHOUT CONTRAST 11/30/2022 3:35 pm TECHNIQUE: CT of the face was performed without the administration of intravenous contrast. Multiplanar reformatted images are provided for review. Automated exposure control, iterative reconstruction, and/or weight based adjustment of the mA/kV was utilized to reduce the radiation dose to as low as reasonably achievable. COMPARISON: None HISTORY: ORDERING SYSTEM PROVIDED HISTORY: fall, nasal injury TECHNOLOGIST PROVIDED HISTORY: Reason for exam:->fall, nasal injury Decision Support Exception - unselect if not a suspected or confirmed emergency medical condition->Emergency Medical Condition ([place]) What reading provider will be dictating this exam?->CRC FINDINGS: FACIAL BONES: The frontal sinuses, orbital alegre, maxilla, pterygoid plates, zygomatic arches, hard palate, mandible are intact. The temporomandibular joints are aligned. Probable nasal tip fracture. ORBITAL CONTENTS: The globes appear intact. The extraocular muscles, optic nerve sheath complexes and lacrimal glands appear unremarkable. No retrobulbar hematoma or mass is seen. SINUSES: There is no evidence of acute sinusitis, such as air fluid level. The mastoid air cells are clear. SOFT TISSUES: No superficial facial soft tissue swelling is seen. IMPRESSION: Probable nasal tip fracture. Interpreted by: Luis Manuel Leonard MD Signed by: Luis Manuel Leonard MD 11/30/22 Final result Normal [facility] Probable nasal tip fracture. [facility] EXAMINATION: CT OF THE FACE WITHOUT CONTRAST 11/30/2022 3:35 pm TECHNIQUE: CT of the face was performed without the administration of intravenous contrast. Multiplanar reformatted images are provided for review. Automated exposure control, iterative reconstruction, and/or weight based adjustment of the mA/kV was utilized to reduce the radiation dose to as low as reasonably achievable. COMPARISON: None HISTORY: ORDERING SYSTEM PROVIDED HISTORY: fall, nasal injury TECHNOLOGIST PROVIDED HISTORY: Reason for exam:->fall, nasal injury Decision Support Exception - unselect if not a suspected or confirmed emergency medical condition->Emergency Medical Condition ([place]) What reading provider will be dictating this exam?->CRC FINDINGS: FACIAL BONES: The frontal sinuses, orbital alegre, maxilla, pterygoid plates, zygomatic arches, hard palate, mandible are intact. The temporomandibular joints are aligned. Probable nasal tip fracture. ORBITAL CONTENTS: The globes appear intact. The extraocular muscles, optic nerve sheath complexes and lacrimal glands appear unremarkable. No retrobulbar hematoma or mass is seen. SINUSES: There is no evidence of acute sinusitis, such as air fluid level. The mastoid air cells are clear. SOFT TISSUES: No superficial facial soft tissue swelling is seen. [facility] Luis Manuel Leonard MD - 11/30/2022 EXAMINATION: CT OF THE FACE WITHOUT CONTRAST 11/30/2022 3:35 pm TECHNIQUE: CT of the face was performed without the administration of intravenous contrast. Multiplanar reformatted images are provided for review. Automated exposure control, iterative reconstruction, and/or weight based adjustment of the mA/kV was utilized to reduce the radiation dose to as low as reasonably achievable. COMPARISON: None HISTORY: ORDERING SYSTEM PROVIDED HISTORY: fall, nasal injury TECHNOLOGIST PROVIDED HISTORY: Reason for exam:->fall, nasal injury Decision Support Exception - unselect if not a suspected or confirmed emergency medical condition->Emergency Medical Condition ([place]) What reading provider will be dictating this exam?->CRC FINDINGS: FACIAL BONES: The frontal sinuses, orbital alegre, maxilla, pterygoid plates, zygomatic arches, hard palate, mandible are intact. The temporomandibular joints are aligned. Probable nasal tip fracture. ORBITAL CONTENTS: The globes appear intact. The extraocular muscles, optic nerve sheath complexes and lacrimal glands appear unremarkable. No retrobulbar hematoma or mass is seen. SINUSES: There is no evidence of acute sinusitis, such as air fluid level. The mastoid air cells are clear. SOFT TISSUES: No superficial facial soft tissue swelling is seen. IMPRESSION: Probable nasal tip fracture. [facility] Radiology Study observation (narrative) [facility] CT FACIAL BONES WO CONTRASTO rdered By: Luis Manuel Leonard on 11-30-2022 [facility] Work Phone: Phenytoin, Free And Totalon 08-14-2022 Percent Free Phenytoin 11.2 % Normal 8.0-14.0 [facility] Comment on above: Result Comment: INTE RPRETIVE INFORMATION: Phenytoin, Free And Total Phenytoin - Total Therapeutic: 10.0-20.0 ug/mL Toxic: Greater than 30.0 ug/mL Phenytoin - Free Level Therapeutic: 1.0-2.5 ug/mL Toxic: Greater than 2.5 ug/mL Phenytoin - Percent Free 8.0-14.0% The therapeutic range is based on serum pre-dose (trough) draw at steady-state concentration. Free phenytoin may be important to monitor in patients with altered or unpredictable protein binding capacity because phenytoin is highly bound (greater than 90 percent) at therapeutic concentrations. Phenytoin is also subject to drug-drug interactions due to displacement of protein binding and extensive metabolism. Cross-reactivity with metabolites may account for differences in phenytoin concentrations among analytical methods. Calculating percent free attempts to minimize differences in assay cross-reactivity and may be useful in dose optimization. Performed By: [facility] [address] [place] [id number] City Dispatcher: Elio Cornejo MD, PhD Phenytoin Free Level 1.5 ug/mL Normal 1.0-2.5 [facility] Total Phenytoin 13.4 ug/mL Normal 10.0-20.0 [facility] Valproic Acid, Free and Tota jean pierre 08-14-2022 Valproic Acid, Free <7 Low 7-23 [facility] Valproic Acid, Percent Free Not Applicable Normal 5-18 [facility] Comment on above: Result Comment: INTE RPRETIVE INFORMATION: VPA-percent Free Valproic Acid, Total Therapeutic Range: 50-125 ug/mL Toxic: Greater than 150 ug/mL Valproic Acid, Free Therapeutic Range: 7-23 ug/mL Toxic: Greater than 30 ug/mL VPA-percent Free Therapeutic Range: 5-18 percent Free valproic acid may be important to monitor in patients with altered or unpredictable protein binding capacity because valproic acid exhibits variable, dose-dependent protein binding. Valproic acid is also subject to drug-drug interactions due to displacement of protein binding. Calculating percent free attempts to minimize differences in test cross-reactivity and may be useful in dose optimization. Adverse effects may include headache, somnolence and dizziness. Performed By: [facility] [address] [place] [address] City Dispatcher: Elio Cornejo MD, PhD Valproic Acid, Total 51 ug/mL Normal 50-125 [facility] Topiramateon 08-13-2022 Topiramate 14.8 ug/mL Normal 5.0-20.0 [facility] Comment on above: Result Comment: INTE RPRETIVE INFORMATION: Topiramate Therapeutic range: 5.0-20.0 ug/mL Toxic: Not well established Pharmacokinetics varies widely, particularly with co-medications, age, and/or compromised renal function. Adverse effects may include somnolence, fatigue, and dizziness. Performed By: [facility] [address] [place] [address] City Dispatcher: Elio Cornejo MD, PhD CHEMISTRYOrdered By: SYSTEM SYSTEM on 01-08-2022 Albumin [Mass/Vol] 4.0 g/dL Normal 3.3 - 5.0 gm/dL [facility] Albumin/Globulin [Mass ratio] 1.4 {ratio} Normal 1.1 - 2.2 [facility] ALP [Catalytic activity/Vol] 89 [iU]/d Normal 21 - 98 Int._Unit/L [facility] ALT No additional P-5'-P [Catalytic activity/Vol] 33 [iU]/d Normal 6 - 46 Int._Unit/L [facility] Anion gap [Moles/Vol] 11 mmol/L Normal 6 - 16 mEq/L [facility] AST [Catalytic activity/Vol] 30 [iU]/d Normal 5 - 43 Int._Unit/L [facility] Bilirubin [Mass/Vol] 0.5 mg/dL Normal 0.0 - 1 .1 mg/dL [facility] Bilirubin.direct [Mass/Vol] mg/dL Normal 0.1 - 0.4 mg/dL [facility] Bilirubin.indirect [Mass or moles/Vol] Unable to Calculate mg/dL Invalid Interpretation Code 0.1 - 0.9 mg/dL [facility] Calcium [Mass/Vol] 8.9 mg/dL Normal 8.9 - 11. 1 mg/dL [facility] Chloride [Moles/Vol] 108 mmol/L Normal 101 - 1 11 mmol/L [facility] CO2 [Moles/Vol] 25 mmol/L Normal 21 - 31 mmol/L [facility] Creatinine [Mass/Vol] 0.9 mg/dL Normal 0.5 - 1.3 mg/dL [facility] GFR/1.73 sq M.predicted among blacks MDRD (S/P/Bld) [Vol rate/Area] mL/min/1.73 m2 Normal >=59mL/min/ 1.73 m2 [facility] Chem S GFR/1.73 sq M.predicted among non-blacks MDRD (S/P/Bld) [Vol rate/Area] mL/min/1.73 m2 Normal >=59mL/min/ 1.73 m2 [facility] Chem S Globulin (S) [Mass/Vol] 2.9 g/dL Normal 1.4 - 4.0 gm/dL [facility] Glucose [Mass/Vol] 102 mg/dL Normal 55 - 199 mg/dL [facility] Phenytoin [Mass/Vol] 11.2 microgram/mL Normal 10 .0 - 19.9 mcg/mL [facility] Potassium [Moles/Vol] 3.7 mmol/L Normal 3.5 - 5.3 mmol/L [facility] Protein [Mass/Vol] 6.9 g/dL Normal 6.0 - 7.8 gm/dL [facility] Sodium [Moles/Vol] 140 mmol/L Normal 135 - 145 mmol/L [facility] Troponin I.cardiac [Mass/Vol] pg/mL Low 15.90 - 38.40 pg/mL [facility] Urea nitrogen [Mass/Vol] 24 mg/dL High 5 - 21 mg/dL [facility] Urea nitrogen/Creatinine [Mass ratio] 27 mg/mg High 10 - 20 [facility] COAGULATIONOrdered By: Peggy Shane on 01-08-2022 aPTT Coag (PPP) [Time] 31.9 s Normal 25.1 - 36.5 second(s) [facility] INR Coag (PPP) [Relative time] 1.0 {INR} Invalid Interpretation Code [facility] PT Coag (PPP) [Time] 11.1 s Normal 9.4 - 1 2.5 second(s) [facility] HEMATOLOGYOrdered By: SYSTEM SYSTEM on 01-08-2022 Basophils/100 WBC (Bld) 0.5 % Normal 0.0 - 2.0 % [facility] Basophils/Leukocytes Auto (Bld) [Pure # fraction] 0.0 E9/L Normal 0.0 - 0.2 E9/L [facility] Eosinophils/100 WBC (Bld) 1.5 % Normal 0.0 - 8.0 % [facility] Eosinophils/Leukocyte s Auto (Bld) [Pure # fraction] 0.1 E9/L Normal 0.0 - 0.5 E9/L [facility] Lymphocytes/100 WBC (Bld) 26.4 % Normal 14.0 - 50.0 % [facility] Lymphocytes/Leukocyte s Auto (Bld) [Pure # fraction] 1.1 E9/L Normal 1.0 - 4.0 E9/L [facility] Monocytes/100 WBC (Bld) 9.2 % Normal 4.0 - 14.0 % [facility] Monocytes/Leukocytes Auto (Bld) [Pure # fraction] 0.4 E9/L Normal 0.2 - 1.0 E9/L [facility] Neutrophils/100 WBC (Bld) 62.4 % Normal 36.0 - 75.0 % [facility] Neutrophils/Leukocyte s Auto (Bld) [Pure # fraction] 2.7 E9/L Normal 2.0 - 7.5 E9/L [facility] HEMATOLOGYOrdered By: Homa Morales on 01-08-2022 Erythrocyte distribution width (RBC) [Ratio] 12.6 % Normal 10.9 - 14.2 % [facility] Hematocrit (Bld) [Volume fraction] 41.5 % Normal 37.7 - 49.0 % [facility] Hemoglobin (Bld) [Mass/Vol] 13.9 g/dL Normal 13.5 - 17.5 gm/dL [facility] MCH (RBC) [Entitic mass] 31.1 pg Normal 27.0 - 34.0 pg [facility] MCHC (RBC) [Mass/Vol] 33.4 g/dL Normal 31.4 - 36.0 gm/dL [facility] MCV (RBC) [Entitic vol] 93.1 fL Normal 80.0 - 100.0 fL [facility] Platelet mean volume (Bld) [Entitic vol] 8.4 fL Normal 6.4 - 10.8 fL [facility] Platelets (Bld) [#/Vol] 162.0 E9/L Normal 150.0 - 500.0 E9/L [facility] RBC (Bld) [#/Vol] 4.5 E12/L Normal 4.3 - 5.9 E12/L [facility] WBC corrected for nucl RBC Auto (Bld) [#/Vol] 4.2 E9/L Normal 4.0 - 11.0 E9/L [facility] Order Reconciliationon 10-07 Order Reconciliation Page 1 Discharge Reconciliation Document Reconciliation Type: Discharge requested on behalf of Alice Herndon (Physician) done by Alice Herndon) Discharge - Reconciliation: 07-Oct-2021 09:27 by: Alice Herndon) [facility]ations [facility] MED[facility] AT DISCHARGE DateReconciliation Comment/ Additional Information Depakote ER 500 mg oral tablet, extended release 2 tab(s) orally 2 times a day 27-Nov-2018 13:39 Depakote ER 500 mg oral tablet, extended release 2 tab(s) orally 2 times a day 27-Nov-2018 13:39 Depakote ER 500 mg oral tablet, extended release is continued as Depakote ER 500 mg oral tablet, extended release Dilantin 100 mg oral capsule 2 cap(s) orally 2 times a day 27-Nov-2018 13:39 Dilantin 100 mg oral capsule 2 cap(s) orally 2 times a day 27-Nov-2018 13:39 Dilantin 100 mg oral capsule is continued as Dilantin 100 mg oral capsule Glucosamine Chondroitin oral capsule 2 cap(s) orally once a day 27-Nov-2018 13:41 Glucosamine Chondroitin oral capsule 2 cap(s) orally once a day 27-Nov-2018 13:41 Glucosamine Chondroitin oral capsule is continued as Glucosamine Chondroitin oral capsule Topamax 200 mg oral tablet 3 tab(s) orally 2 times a day 27-Nov-2018 13:40 Topamax 200 mg oral tablet 3 tab(s) orally 2 times a day 27-Nov-2018 13:40 Topamax 200 mg oral tablet is continued as Topamax 200 mg oral tablet ZyrTEC 10 mg oral tablet 1 tab(s) orally once a day 27-Nov-2018 13:41 ZyrTEC 10 mg oral tablet 1 tab(s) orally once a day 27-Nov-2018 13:41 ZyrTEC 10 mg oral tablet is continued as ZyrTEC 10 mg oral tablet Current OrdersDateHOME MEDICATIONS AT DISCHARGE DateReconciliation Comment/ Additional Information Acetaminophen Tablet (TYLENOL)DOSE = 975 mg Oral OnceClinician Notes: Elizabeth-operative order ONLY 06-Oct-2021 15:30 Acetaminophen is not required fentaNYL Injectable (SUBLIMAZE)DOSE = 25 microgram(s) IntraVenous Push Every 5 Minutes, PRN Pain - Severe (7-10) (PACU) if unable to take oralClinician Notes: Elizabeth-operative order ONLYMax total of 200 micrograms regardless of dose. 06-Oct-2021 15:30 fentaNYL Injectable is not required HYDROcodone 5 mg - Acetaminophen 325 mg TabletDOSE = 1 tablet(s) Oral Every 4 Hours, PRN Pain - Mod (4-6) (PACU) when able to take OralClinician Notes: Elizabeth-operative order ONLY 06-Oct-2021 15:30 HYDROcodone 5 mg - Acetaminophen 325 mg is not required Lactated Ringers Infusion IV Bag Volume = 1,000 mL Run at: 80 mL/hr IntraVenous Clinician Notes: Elizabeth-operative order ONLY 06-Oct-2021 15:30 Lactated Ringers Infusion is not required Ondansetron Injectable (ZOFRAN)DOSE = 4 mg IntraVenous Push Once, PRN PONV, first lineClinician Notes: Elizabeth-operative order ONLY 06-Oct-2021 15:30 Ondansetron Injectable is not required oxyCODONE 5 mg - Acetaminophen 325 mg Tablet (PERCOCET)DOSE = 1 tablet(s) Oral Every 4 Hours, PRN Pain - Severe (7-10)Clinician Notes: Elizabeth-operative order ONLY 06-Oct-2021 15:30 oxyCODONE 5 mg - Acetaminophen 325 mg is not required Home Medications Added During Discharge Reconciliation Call Physician For: inability to urinate every 8-12 hours and your bladder becomes too full or painful. Call Physician For: persistant nausea and/or vomiting Over 24 hours Call Physician For: signs and sypmtoms of infection Increased redness or swelling at incision site, increased pain/tenderness at surgical site, increased temperature greater than 100 degress, increasing and/or progressive drainage from surgical site, and/or unusual odor from surgical site. Diet Regular Special Instructions: Liquids and light meals today, regular diet tomorrow. 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 Do not remove any midline, if present, without an order from the provider. Discharge Instructions - PHR After your discharge from the hospital, two Summary of Care Documents will be available online in your Personal Health Record (PHR). 1.Consolidated-Clinical Document Architecture (C-CDA) Patient Discharge Summary This document is a summary of your hospital stay to be kept for your reference.2.C-CDA Visit Summary This document is a summary of your hospital stay to be shared with your follow-up providers (doctor, conductor symphonic orchestra, physical therapist, etc.). Follow Up with Yanick in 7 Days Keep the dressing clean and dry. OK to remove in 48 hours and shower. There are steristrips under the dressing which will fall off on their own, usually in 7 days or so. Watch for any increasing re All Active Home Medications at time of Discharge Reconciliation: 07-Oct-2021 09:27 Call Yanique (more content not included)... Normal [facility] CORONAVIRUS 2019, SCREEN ASY MPTOMATICon 10-05-2021 SARS-CoV-2 (COVID-19) RNA JOSELINE+probe Ql (Unsp spec) Not detected Normal Not Detected [facility] Comment on above: Result Comment: . This assay is designed to detect the N, ORF1ab and/or S genes of SARS-CoV-2 via nucleic acid amplification. A Negative (NOT DETECTED) result does not preclude 2019-nCoV infection since the adequacy of sample collection and/or low viral burden may result in presence of viral nucleic acids below the clinical sensitivity of this test method. Negative (NOT DETECTED) result should not be used as the sole basis for treatment or other patient management decisions. Rather negative results should be combined with clinical observations, patient history, and epidemiological information to make patient management decisions. Fact sheet for providers: https://www.fda.gov/media/507194/download Fact sheet for patients: https://www.fda.gov/media/984357/download This test has received FDA Emergency Use Authorization (EUA) and has been verified by [facility] ([facility]). This test is only authorized for the duration of time that circumstances exist to justify the authorization of the emergency use of in vitro diagnostic tests for the detection of SARS-CoV-2 virus and/or diagnosis of COVID-19 infection under section 564(b)(1) of the Act, 21 U.S.C. 360bbb-3(b)(1), unless the authorization is terminated or revoked sooner. [facility] is certified under CLIA-88 as qualified to perform high complexity testing. Testing is performed in the [facility] laboratories located at [address] [place] [address]. Performed By: #### C OVSC #### [place] [address] Covid 19 Resultson 2 SARS-CoV-2 (COVID-19) RNA JOSELINE+probe Ql (Unsp spec) NEGATIVE COVID-19 Test Coronaviruses are common world-wide and are the cause of many common colds. SARS-COV2 is a new coronavirus that began circulating worldwide in 2019 so we are calling it COVID-19. It has been estimated that four out of five patients with COVID-19 will recover at home without the need for medical attention. Symptoms of COVID-19 may include cough, fever, shortness of breath, loss of taste or smell and other flu-like symptoms including chills, sore muscles, sore throat, and headache. Severe illness is more common in older people and people with other health problems such as high blood pressure, obesity, and immune system problems. If the test is positive, you have COVID-19. You will be contacted by the ordering physicians office and instructed to remain on home isolation, in accordance with CDC guidelines. You may also be contacted by the [facility] to see if any of your close contacts may have been exposed to the virus and need to quarantine. If the test is negative, you likely do not have COVID-19 at this time, but you still may have a different illness that can spread to other people (like Influenza, or the Flu) and could still be at risk for getting COVID-19. We recommend that you stay away from other people to limit the spread of illness until your symptoms are improving and you are fever-free for 24 hours without the use of fever lowering medications such as acetaminophen or ibuprofen. No test is 100% accurate so if you are still concerned you may have COVID-19, talk to your doctor about the need to continue to stay away from others. Medicines Unless your provider told you not to use the following: Acetaminophen (Tylenol and others) is generally safe. Anti-inflammatory medications, such as Ibuprofen (Advil or Motrin) or Naproxen (Aleve) can also be used. Ihtc-drq-jmfpmwa cough and cold medicines can be used according to the instructions on the package. Some epon-vwp-pcaqikp medicines also contain acetaminophen. Make sure you are not taking more than your recommended dose. For those not hospitalized, there is no specific treatment available for this illness. Antibiotics do not treat Coronaviruses. Follow-Up Follow up with your doctor by scheduling a virtual visit or consider follow-up at one of our urgent care fever clinics. If you are having difficulty breathing, or are very weak and having difficulty standing, this is a medical emergency. Call 911 or have someone take you to the nearest emergency room immediately. If possible, wear a facemask. Additional guidance from the CDC for patients who tested POSITIVE for COVID-19 How to isolate: Isolate yourself in a specific room at home and limit your contact with others. Use a separate bathroom from other members of the household, when possible. Leave home only to get essential medical care. Do not go to work, school or public areas. Avoid using public transportation, ride-sharing, or taxis. Restrict contact with pets and other animals. If you must care for your pet or be around animals while you are sick, wash your hands before and after your interaction and wear a facemask. Make sure that shared spaces in the home have good airflow, such as by an air conditioner or an opened window, weather permitting. Personal Hygiene Procedures: Wear a face mask when in the same room as other people or pets. If a face mask interferes with your breathing, others should wear a mask when sharing space with you. Frequent hand-washing: wash your hands with soap and water for at least 20 seconds. If soap and water are not available, use alcohol-based hand plaster form maker. Avoid touching your eyes, nose, and mouth with unwashed hands. Household Hygiene Procedures: Avoid sharing personal household items such as dishes, glassware, cups, eating utensils, towels or bedding with other people or pets in your home. After use, these items should be washed with soap and hot water. Disinfect all high-touch surfaces every day with antibacterial cleaning solutions such as Lysol wipes, bleach, cleansers, etc. High-touch surfaces include tabletops, doorknobs, bathroom fixtures, toilets, phones, keyboards, tablets and bedside tables. Immediately clean any surfaces that may have blood, poop or body fluids on them, using antibacterial cleaning solutions such as Lysol wipes, bleach, cleansers, etc. If clothing or bedding come into contact with blood, poop or body fluids, they should be washed immediately. Follow the directions on the laundry detergent and clothing labels but hot water is recommended when possible. Stopping home isolation precautions: If possible, consult your doctor before stopping home isolation precautions. According to the CDC, you can discontinue home isolation precautions when you have met both of these criteria: Your fever and respiratory symptoms have been gone for 24 sai (more content not included)... Normal [facility] CORONAVIRUS 2019, SCREEN ASY MPTOMATICon 10-04-2021 Lab Specimen Source Nasal, Nasopharyngeal Normal [facility] Comment on above: Performed By: #### C OVSC #### [facility] [address] [place] [address] Coronavirus 2019 RNA by PCR, Screening Asymptomticon 10-04-2021 Coronavirus 2019 RNA by PCR, Screening Asymptomtic Not detected Normal See Below MG-Otolaryng brian-Zena mera Voice Work Phone: Comment on above: SOURCE: Nasal, Nasop haryngealReference Range: Not Detected.This assay is designed to detect the N, ORF1ab and/or S genes of SARS-CoV-2 via nucleic acid amplification. A Negative (NOT DETECTED) result does not preclude 2019-nCoV infection since the adequacy of sample collection and/or low viral burden may result in presence of viral nucleic acids below the clinical sensitivity of this test method. Negative (NOT DETECTED) result should not be used as the sole basis for treatment or other patient management decisions. Rather negative results should be combined with clinical observations, patient history, and epidemiological information to make patient management decisions.Fact sheet for providers: https://www.fda.gov/media/051243/downloadFact sheet for patients: https://www.fda.gov/media/767277/downloadThis test has received FDA Emergency Use Authorization (EUA) and has been verified by [facility] ([facility]). This test is only authorized for the duration of time that circumstances exist to justify the authorization of the emergency use of in vitro diagnostic tests for the detection of SARS-CoV-2 virus and/or diagnosis of COVID-19 infection under section 564(b)(1) of the Act, 21 U.S.C. 360bbb-3(b)(1), unless the authorization is terminated or revoked sooner. [facility] is certified under CLIA-88 as qualified to perform high complexity testing. Testing is performed in the [facility] laboratories located at [address] [place] [address]. Patient Profile - Preop v3on 09-24-2021 Patient Profile - Preop v3 Patient Profile - Preop: Initial Info: Patient DemographicsName: VAMSI JUAREZ Date: 1975 Address: [address] [place] [address] Primary Phone [phone] How to be AddressedDan Spoken Language PreferredEnglish Source of Informationpatient Stated Reason for AdmissionVNS stimulator generator change Primary Contact Name and NumberJoclaudia [phone] Limitations on Visitors/Phone Callsnone Medications Brought to Hospitalno General Health: Weight in kg76 kilogram(s) Weight in djn255.5 pound(s) Weight Methodstated Scale Typestanding Height in feet5 feet Height in yyhhes59.97 inch(es) Height in cm182.8 centimeter(s) Height Methodstated BMI (kg/m2)22.743 square meter Patient or Family Member Reaction to Anesthesiano previous reaction; no previous family member reaction; Does have sleep apnea and uses CPAP. No illnesses in the past 30 days. Able to climb a set of stairs without getting winded. No cane, walker, or wheelchair needed. Blood Avoidance/Restrictionsnon e Previous Transfusion Reactionno Health Mgmt: Symptoms/Conditions Managed at [facility]; HEENT (head, eyes, ears, nose, throat); respiratory HEENT Symptoms/Conditions Commentseptoplasty, uvulectomy Neurological Symptoms/Conditionsseizur es Neurological Symptoms/Conditions CommentPartial symptomatic epilepsy with complex partial seizures, not intractable, with status epilepticus, VNS device, last change in November of 2018, about 2 seizures per month Respiratory Symptoms/Conditions CommentOSA with uvulectomy Barriers to Managing Healthnone Relationship/Environ: Lives Withspouse Living Arrangementshouse Resource/Environmental Concernsnone [place] Anticipated at Transitionnone Tobacco Use: Tobacco Useno Pre-op Checklist: NPOyes Last Food [id number] 05:30 ID Band On Patientpatient ID (name) Consent Signedyes Additional Information: Information Review: Allergies, Home Meds and Significant Events have been Reviewed and Verified with Patient/Familyyes Allergy, Intolerance, Adverse Event: Allergies: No Known Allergies: Active Significant Events: -Nov-2018 uvulectomy: Past Surgical History, Active 03-Dec-2018 Septoplasty: Past Surgical History, Active 03-Dec-2018 VNS placement: Past Surgical History, Active Electronic Signatures: Dion Unger) (Signed 24-Sep-2021 11:23) Authored: Initial Info, Additional Information Jing Saunders) (Signed 30-Sep-2021 08:15) Authored: General Health, Health Mgmt, Tobacco Use, Additional Information Katheryn Curiel (RN) (Signed 07-Oct-2021 07:50) Authored: Initial Info, Relationship/Environ, Pre-op Checklist Last Updated: 07-Oct-2021 07:50 by Katheryn Curiel (RN) Normal [facility] Established Visit (Otolaryng ology)on 06-15-2021 Established Visit (Otolaryngology) Diagnoses/Problems Partial symptomatic epilepsy with complex partial seizures, not intractable, with status epilepticus (345.40,345.3) (G40.201) S/P placement of VNS (vagus nerve stimulation) device (V45.89) (Z96.89) Patient Discussion/Summary Plan: 1. You will be scheduled for a VNS battery changes. We discussed the risks, benefits, and alternatives of intervention to include but not be limited to, bleeding and infection, damage to surrounding structures including surrounding muscles, nerves, and blood vessels, as well as scarring. We further discussed the possibility of change in voice with persistent or worsened hoarseness, swallowing difficulty, breathing difficulty, medical complications, and risks of anesthesia. You will need regular changes of the generator every 3-[address] Herndon?s clinic. We are here to assist you through your ENT care at [facility]. Dr. Herndon is an ENT surgeon who specializes in voice, airway and swallowing issues. This means that she specializes in taking care of patients with complex voice, airway and swallowing problems. Dr. Herndon's office number is [phone]. Please use this number to contact her and her care team regardless of which office you use to access care. This number is the most direct way to communicate with all the members of the care team. Dr. Herndon?s tool coordinator answers the office phone from 9am-4pm Mon-Fri. Call [phone] and push 2. She can help you with scheduling of appointments, general questions and information. You may need to leave a message if she is helping another patient. In this case, someone from the team will call you back the same day if you leave your message before 3pm, or the next business morning. Dr. Herndon?s nurse and can be reached by calling [phone]. We make every effort to return phone calls the same day. If you are in need of urgent assistance after hours, please call [phone] and ask for ENT extraction machine operator. Dr. Herndon works closely with speech therapists as they work together to help solve your issues with speech and swallowing. You may see a speech therapist during your appointment if Dr. Herndon feels this is needed. If you need to reach speech therapy to talk with a therapist or to schedule an appointment, please call [phone]. Others who may be included in your care are dieticians, social workers, audiologists, neurologists, and physical therapists. Dr. Herndon will provide these referrals as needed. Please let her know if you would like to request a specific referral. For your convenience, Dr. Herndon sees patients at different [facility] locations including the [facility] at [facility], and [facility] at the [facility]. While we try to make your appointments as convenient as possible, occasionally a visit to another location may be necessary to provide the best care for you. Dr. Herndon makes every effort to run on time for your appointments. Therefore, if you are more than 30 minutes late unrelated to a scan or another appointment such therapy or audiology, your appointment will need to be rescheduled to another day. We appreciate your understanding. We look forward to working with you to meet your healthcare goals. By signing my name below, I, Eliz Barrera, attest that this documentation has been prepared under the direction and in the presence of Dr. Alice Herndon. All medical record entries made by the Scribe were at my direction and personally dictated by me. I have reviewed the chart and agree that the record accurately reflects my personal performance of the history, physical exam, discussion and plan. Provider Impressions This is a follow up evaluation for VNS generator change in the setting of medically intractable seizures. He currently has a model 106. His last generator change was in November 2018 and is currently at 25% battery capacity. We discussed the risks, benefits, and alternatives of performing a generator change. The patient understands and an informed consent was obtained via virtual video call. All of his questions were answered. Chief Complaint An interactive audio and video telecommunication system which permits real time communications between the patient (at the originating site) and provider (at the distant site) was utilized to provide this telehealth service. Verbal consent was requested and obtained from VAMSI JUAREZ on this date, 06/15/2021 03:00 PM , for a telehealth visit. VNS History of Present IllnessHistory of medically intractable seizures and epilepsy since the age of 11. VNS was initially placed in 1999. Interval History (2018): The patient needs a battery change in late spring/early summer. The battery was last replaced in November 2018. The VNS has controlled his seizures well. He currently at 25% battery life. He has no new changes to his medical history. He is not receiving anticoagulation therapy (more content not included)... Normal [employer] Phenobarbital LevelOrdered B y: Edil Brush on 11-23-2020 Interpretation and review of laboratory results Abnormal [employer] Phone: Phenobarbital Lvl <2.4 Low 10.0 - 30. 0 ug/mL [employer] Phone: CALL doctor [id number] te l. [phone], fx [phone] [employer] Phone: [employer] Phone: Patient Profile - Preop v2on 12-03-2018 Patient Profile - Preop v2 Profile: Initial Info: How to be AddressedDan Spoken Language PreferredEnglish Source of Informationpatient Are you currently using the Personal Electronic Health Record or Entefy Stated Reason for AdmissionMy battery changed Primary Contact Name and NumberJoclaudia [phone] Limitations on Visitors/Phone Callsnone Patient Belongingsremains with patient Patient Belongings Remaining with Patientclothing Medications Brought to Hospitalno General Health: Weight in kg74.8 kilogram(s) Weight in fth960 pound(s) Weight Methodactual (measured) Scale Typestanding Height in feet6 feet Height Methodheight measured Patient or Family Member Reaction to Anesthesiano previous reaction Blood Avoidance/Restrictionsnon e Previous Transfusion Reactionno Health Mgmt: Symptoms/Conditions Managed at [place] Barriers to Managing Healthnone Relationship/Environ: Resource/Environmental Concernsnone Services Anticipated at Transitionnone Lives Withspouse Living Arrangementshouse Anticipated [facility] Substance: Current or Former Substance Use never: Cigarette/Tobacco, e-Cigarette/Vaping, Alcohol, Street Drugs Risk Screens: Advance Directive/DNRno Advance Directive Mental Healthnot applicable During the past month, have you often been bothered by feeling down, depressed or hopelessno During the past month, have you often had little interest or pleasure in doing thingsno Have you had any thoughts of harming yourselfno Have you had any thoughts of harming anyone elseno Are you or have you been threatened or abused physically,emotionally or sexually abused by anyoneno Do you feel UNSAFE going back to the place you are livingno Patient is Able to be Assessed for Learningyes Factors Influencing Readiness to Learninterest in learning Factors that Impact Ability to Learnnone Devices/Methods Used to Communicatenone Learning Preferencesverbal instruction; written material Cultural Considerationsnone Developmental Considerationsnone Sabianism Considerationsnone Other learner availableno Falls RiskPatient location auto qualifies him/her for HIGH RISK. Are there any cultural, spiritual, mosque practices/values/needs that are important for us to knowno Do you want a visit/item from Pastoral Careno Would you like your City Marshal/Assembler Lay [employer]ps notifiedno Pain Scalenumerical 0-10 Pain Scale Educationteaching provided Current Pain Level0 = None Acceptable Pain Levelunable to assess Chronic Painno Information Review: Allergies, Home Meds and Significant Events have been Reviewed and Verified with Patient/Familyyes Allergy, Intolerance, Adverse Event: Allergies: No Known Allergies: Active Significant Events: 03-Dec-2018 uvulectomy: Past Surgical History, Active 03-Dec-2018 Septoplasty: Past Surgical History, Active 03-Dec-2018 VNS placement: Past Surgical History, Active 03-Dec-2018 epilepsy: Past Medical History, Active 03-Dec-2018 DOUG: Past Medical History, Active Electronic Signatures: Lalita Dunaway (NATHALIE) (Signed 03-Dec-2018 11:24) Authored: Profile, Additional Information Last Updated: 03-Dec-2018 11:24 by Lalita Dunaway) [facility] Preop Checkliston 12-03-2018 Preop Checklist Preop Checklist: Preop Checklist: Arrival [id number] Arrival Time11:04 Procedure TypeVNS generator change NPO [id number] 21:00 ID Band Onyes Allergy Bandno known allergies Consent Signedyes H&P Completeyes Anesthesia Assessment Completedyes EKG Performedyes Chest X-Ray Performednot ordered SCD's Appliedyes STEPHANIE Hose Appliednot ordered Denturesnot applicable Prostheticsnot applicable Hearing Aidsnot applicable Valuables Securedplaced in locker Glasses / Contactsnot applicable Bowel Prepno Cardiovascular Assessment: Apicalregular Radial Pulsespalpable Pedal Pulsespalpable Extremitieswarm Respiratory Assessment: Respirationsunlabored regular Air Exchangeequal, good Breath Soundsclear Neurological Assessment: Level of Consciousnessalert, oriented Mobilitymoves all extremities Able to Express Selfyes Age Appropriateyes Emotional Statuscalm Preop Education: Surgical Site Infection Preventionyes Pain Scales and Managementyes Language / Communication: Language / CommunicationEnglish Electronic Signatures: Lalita Dunaway (RN) (Signed 03-Dec-2018 11:27) Authored: Preop Checklist Last Updated: 03-Dec-2018 11:27 by Lalita Dunaway (NATHALIE) Normal [facility] BASIC METABOLIC PANELon 11-09 Anion gap [Moles/Vol] 8 mmol/L Low 10 - 20 [facility] Comment on above: Performed By: #### B MP #### [facility] [address] [facility], [place] [phone] Calcium [Mass/Vol] 8.8 mg/dL Normal 8.6 - 10.3 [facility] Comment on above: Performed By: #### B MP #### [facility] [address] [facility], [place] [phone] Chloride [Moles/Vol] 106 mmol/L Normal 98 - 107 [facility] Comment on above: Performed By: #### B MP #### [facility] [address] [facility], [place] [phone] Creatinine [Mass/Vol] 0.87 mg/dL Normal 0.50 - 1.30 [facility] Comment on above: Performed By: #### B MP #### [facility] [address] [facility], [place] [phone] GFR- AM. >60 Normal >60 [facility] Comment on above: Result Comment: CALC ULATIONS OF ESTIMATED GFR ARE PERFORMED USING THE MDRD STUDY EQUATION FOR THE IDMS-TRACEABLE CREATININE METHODS. CLIN CHEM 2007;53:766-72 Performed By: #### B MP #### [facility] [address] [facility] [place], [place] [phone] GFR-NON AM. >60 Normal >60 [facility] Comment on above: Performed By: #### B MP #### [place] [address] [facility] [place], [place] [phone] Glucose [Mass/Vol] 96 mg/dL Normal 74 - 99 [facility] Comment on above: Performed By: #### B MP #### [address] [place], [place] [phone] HCO3 (Bld) [Moles/Vol] 28 mmol/L Normal 21 - 32 [facility] Comment on above: Performed By: #### B MP #### [address] [place] [phone] Potassium [Moles/Vol] 4.0 mmol/L Normal 3.5 - 5.3 [facility] Comment on above: Performed By: #### B MP #### [address] [place], [place] [phone] Sodium [Moles/Vol] 138 mmol/L Normal 136 - 145 [facility] Comment on above: Performed By: #### B MP #### [address] [place], [place] [id number] Urea nitrogen [Mass/Vol] 18 mg/dL Normal 6 - 23 [facility] Comment on above: Performed By: #### B MP #### [address] [place], [place] [id number] CBCon 11-27-2018 Erythrocyte distribution width (RBC) [Ratio] 12.4 % Normal 11.5 - 14.5 [facility] Comment on above: Performed By: #### C BC #### [place] [address] [facility] [place], [place] [phone] Hematocrit (Bld) [Volume fraction] 43.0 % Normal 41.0 - 52.0 [facility] Comment on above: Performed By: #### C BC #### [place] [address] [facility], [place] [phone] Hemoglobin (Bld) [Mass/Vol] 14.4 g/dL Normal 13.5 - 17.5 [facility] Comment on above: Performed By: #### C BC #### [address], [place] [phone] MCHC (RBC) [Mass/Vol] 33.5 g/dL Normal 32.0 - 36.0 [facility] Comment on above: Performed By: #### C BC #### [address], [place] [phone] MCV (RBC) [Entitic vol] 91 fL Normal 80 - 100 [facility] Comment on above: Performed By: #### C BC #### [address], [place] [phone] Platelets (Bld) [#/Vol] 185 10*3/uL Normal 150 - 450 [facility] Comment on above: Performed By: #### C BC #### [address], [place] [id number] RBC (Bld) [#/Vol] 4.71 x10E12/L Normal 4.50 - 5.90 [facility] Comment on above: Performed By: #### C BC #### [address], [place] [phone] WBC (Bld) [#/Vol] 3.6 10*3/uL Low 4.4 - 11.3 [facility] Comment on above: Performed By: #### C BC #### [address], [place] [phone] History and Physicalon 11-27 History and Physical History of Present Illness: Admission Reason: partial symptomatic epilepsy with complex partial seizures, not intractable, with status epilepticus HPI: 43 year old male with symptoms of epilepsy with onset at approx age 11. PSH significant for placement of VNS 1999 with last generator change being 2014. This will be the fourth generator change. Hx of DOUG with CPAP use. Past Medical/Surgical History: Medical History: DOUG on CPAP: Partial symptomatic epilepsy with complex partial seizures, not intractable, with status epilepticus: Surg History: History of surgical procedure: Description: VNS placement 1999 and three generator changes with last one in 2014. History of nasal septoplasty: History of uvulectomy: Family History: Diabetes: yes Hypertension: yes Social History: Social History: Smoking Statusnever smoker Alcohol Usedenies Drug 2 Usedenies OccupationDisabled Social History Allergies: No Known Allergies: Medications Prior to Admission: see OMR. Review of Systems: Constitutional: NEGATIVE: Fever, Chills, Anorexia, Weight Loss, Malaise Eyes: COMMENTS: glasses ENMT: NEGATIVE: Nasal Discharge, Nasal Congestion, Ear Pain, Mouth Pain, Throat Pain Respiratory: NEGATIVE: Dry Cough, Productive Cough, Hemoptysis, Wheezing, Shortness of Breath Cardiac: NEGATIVE: Chest Pain, Dyspnea on Exertion, Orthopnea, Palpitations, Syncope Musculoskeletal: POSITIVE: Stiffness Neurological: POSITIVE: Seizures; COMMENTS: see HPI Psychiatric: NEGATIVE: Mood Changes, Anxiety, Hallucinations, Sleep Changes, Suicidal Ideas Skin: NEGATIVE: Mass, Pain, Pruritus, Rash, Ulcer Endocrine: NEGATIVE: Heat Intolerance, Cold Intolerance, Sweat, Polyuria, Thirst Hematologic/Lymph: NEGATIVE: Anemia, Bruising, Easy Bleeding, Night Sweats, Petechiae Allergic/Immunologic: COMMENTS: seasonal All Other Systems: All other systems reviewed and are negative Objective: Objective Information: VS: Tmax: 96.9 F HR: 79 RR: 16 BP: 111/74 POx: 97% RA Ht: 6' Wt: 165# denies problems with anesthesia in the past Physical Exam: Constitutional: Alert orientated x 3 no acute distress pleasant and cooperative Eyes: PERRL, nonicteric sclera, intact ocular movement, glasses ENMT: pharynx clear no erythema or exudate noted Head/Neck: normocephalic neck supple nontender trachea midline Respiratory/Thorax: CTA without wheezes rales rhonchi heard respiratory rate regular and unlabored Cardiovascular: RR without murmur heard at this time Gastrointestinal: soft nontender no definitive masses noted Genitourinary: defer Musculoskeletal: no gross deformities moves all extremities without difficulty Extremities: no pedal edema noted DP pulses palpable Neurological: cranial nerves grossly intact Breast: defer Lymphatic: defer Psychological: Appropriate mood and behavior Skin: warm and dry, good color, good turgor and texture Assessment and Plan: Problem List: Medical History: DOUG on CPAP: Partial symptomatic epilepsy with complex partial seizures, not intractable, with status epilepticus: Impression 1: partial symptomatic epilepsy with complex partial seizures, not intractable, with status epilepticus Plan for Impression 1: VNS generator change, [employer] 106 Plan for Impression 2: Records reviewed including any recent labs +/or EKG. Patient evaluated through PAT and record sent to anesthesia. Preoperative instructions reviewed, given to patient. Pt verbalized understanding of preop instructions. Post op pain control sheet reviewed and given to patient. Pt verbalized understanding of post op pain control sheet. EKG completed and labs ordered. Signatures/Attestation/Ce rtification: Note Completion: RO StatementI am solely responsible for all documentation captured within this clinical document, including critical care time, if applicable. The attending physician signature below is only for admission certification purposes. Attending Provider Inpatient Certification StatementObservation patient/other outpatient visits Electronic Signatures: Alice Herndon) (Signed 03-Dec-2018 11:41) Authored: Signatures/Attestation/Ce rtification Co-Signer: History of Present Illness, Comorbidities, Past Medical/Surgical History, Family History, Social History, Allergies, Medications Prior to Admission, Review of Systems, Objective, Assessment and Plan, Signatures/Attestation/Ce rtification Anabella Garcia (CHILDREN'S LUNCHROOM SUPERVISOR-PRECISION INSTRUMENT AND TOOL MAKER) (Signed 27-Nov-2018 15:11) Authored: History of Present Illness, Comorbidities, Past Medical/Surgical History, Family History, Social History, Allergies, Medications Prior to Admission, Review of Systems, Objective, Assessment and Plan, Signatures/Attestation/Ce rtification Last Updated: 03-Dec-2018 11:41 by Alice Herndon) Normal [facility] PT/INRon 11-27-2018 INR Coag (PPP) [Relative time] 1.1 {INR} Normal 0.9 - 1.1 [facility] Comment on above: Performed By: #### P TINR #### [facility] [address] [place], [place] [phone] PT Coag (PPP) [Time] 12.1 s Normal 9.7 - 12.7 [facility] Comment on above: Performed By: #### P TINR #### [facility] [address] [place], [place] [phone] Vital Signs Date Time Vital Sign Value Performing Clinician Facility 10-01-2024 13:11-0400 Body height 182.[address] Joesph Vivar DO Work Phone: 8(911)052-394954 [place] [address] 10-01-2024 13:11-0400 Body mass index (BMI) [Ratio] 22.6 kg/m2 Dr. Joesph Vivar DO Work Phone: 4(913)222-570754 [place] [address] 10-01-2024 13:11-0400 Body temperature 97.2 [degF] Dr. Joesph Bearden Work Phone: 7(661)450-391154 [place] [address] 10-01-2024 13:11-0400 Body weight 75.[address] Joesph Vivar DO Work Phone: 0(166)496-663754 [place] [address] 10-01-2024 13:11-0400 Diastolic blood pressure 50 mm[Hg] Dr. Joesph Vviar DO Work Phone: 4(100)209-809854 [place] [address] 10-01-2024 13:11-0400 Heart rate 78 /min Dr. Joesph Bearden Work Phone: 0(293)111-160154 [place] [address] 10-01-2024 13:11-0400 Respiratory rate 16 /min Dr. Joesph Bearden Work Phone: 7(716)517-794054 [place] [address] 10-01-2024 13:11-0400 SaO2% (BldA) [Mass fraction] 99 % Dr. Joesph Bearden Work Phone: 3(734)690-043751 [place] [address] 10-01-2024 13:11-0400 Systolic blood pressure 98 mm[Hg] Dr. Joesph Bearden Work Phone: 3(478)560-503254 [place] [address] 08-17-2024 20:40-0400 Body temperature 97.8 [degF] Dr. Joesph Vivar DO Work Phone: 2(261)332-026454 [place] [address] 08-17-2024 20:40-0400 Diastolic blood pressure 74 mm[Hg] Dr. Joesph Bearden Work Phone: [facility] 08-17-2024 20:40-0400 Heart rate 84 /min Dr. Joesph Bearden Work Phone: [facility] 08-17-2024 20:40-0400 Respiratory rate 16 /min Dr. Joesph Vivar DO Work Phone: [facility] 08-17-2024 20:40-0400 SaO2% (BldA) [Mass fraction] 99 % Dr. Joesph Bearden Work Phone: [facility] 08-17-2024 20:40-0400 Systolic blood pressure 113 mm[Hg] Dr. Joesph Bearden Work Phone: [facility] 08-17-2024 18:11-0400 Body height 182.[address] Joesph Bearden Work Phone: [facility] 08-17-2024 18:11-0400 Body mass index (BMI) [Ratio] 25.4 kg/m2 Dr. Joesph Bearden Work Phone: [facility] 08-17-2024 18:11-0400 Body weight 85.[address] Joesph Bearden Work Phone: [facility] 02-14-2024 13:36-0500 Body height 182.9 cm Edil Brush MD Work Phone: [facility] 02-14-2024 13:36-0500 Body mass index (BMI) [Ratio] 22.38 kg/m2 Edil Brush MD Work Phone: [facility] 02-14-2024 13:36-0500 Body weight 74.84 kg Edil Brush MD Work Phone: [facility] 02-14-2024 13:36-0500 Diastolic blood pressure 64 mm[Hg] Edil Brush MD Work Phone: [facility] 02-14-2024 13:36-0500 Heart rate 77 /min Edil Brush MD Work Phone: [facility] 02-14-2024 13:36-0500 Systolic blood pressure 88 mm[Hg] Edil Brush MD Work Phone: [facility] 10-20-2023 12:53-0400 Diastolic blood pressure 74 mm[Hg] Mainor Gilliame [facility] 10-20-2023 12:53-0400 Heart rate 81 /min Mainor Gilliame [facility] 10-20-2023 12:53-0400 Mean blood pressure 84 mm[Hg] Mainor Maryjane [facility] 10-20-2023 12:53-0400 Respiratory rate 12 /min Main[facility] Maryjane [facility] 10-20-2023 12:53-0400 SaO2% (BldA) [Mass fraction] 100 % [facility] Maryjane [facility] 10-20-2023 12:53-0400 Systolic blood pressure 104 mm[Hg] Main[facility] Maryjane [facility] 10-20-2023 12:30-0400 Diastolic blood pressure 74 mm[Hg] [facility] Maryjane [facility] 10-20-2023 12:30-0400 Heart rate 78 /min Main[facility] Maryjane [facility] 10-20-2023 12:30-0400 Mean blood pressure 84 mm[Hg] Main[facility] Maryjane [facility] 10-20-2023 12:30-0400 Respiratory rate 24 /min Main[facility] Maryjane [facility] 10-20-2023 12:30-0400 SaO2% (BldA) [Mass fraction] 99 % [facility] Maryjane [facility] 10-20-2023 12:30-0400 Systolic blood pressure 104 mm[Hg] [facility] Maryjane [facility] 10-20-2023 11:46-0400 Diastolic blood pressure 65 mm[Hg] Mainor Wesley [facility] 10-20-2023 11:46-0400 Heart rate 75 /min Mainor Wesley [facility] 10-20-2023 11:46-0400 Mean blood pressure 78 mm[Hg] Mainor Gilliame [facility] 10-20-2023 11:46-0400 Respiratory rate 12 /min Mainor Wesley [facility] 10-20-2023 11:46-0400 Systolic blood pressure 103 mm[Hg] Mainor Wesley [facility] 10-20-2023 09:35-0400 Body temperature 98.6 [degF] Mainor Wesley [facility] 10-20-2023 09:35-0400 Heart rate 80 /min Mainor Wesley [facility] 10-20-2023 09:35-0400 Respiratory rate 16 /min Mainor Wesley [facility] 02-27-2023 18:16-0500 Blood Pressure Location German Jonathan [facility] 02-27-2023 18:16-0500 Body temperature 98.06 [degF] German Loveey [facility] 02-27-2023 18:16-0500 Diastolic blood pressure 72 mm[Hg] German Castillo [facility] 02-27-2023 18:16-0500 Heart rate 73 /min German Castillo [facility] 02-27-2023 18:16-0500 SaO2% (BldA) [Mass fraction] 100 % German Castillo [facility] 02-27-2023 18:16-0500 Systolic blood pressure 116 mm[Hg] German Castillo [facility] 11-30-2022 17:11-0400 Diastolic blood pressure 80 mm[Hg] Eb Mcarthur Work Phone: [employer] 11-30-2022 17:11-0400 Heart rate 75 /min Eb Mcarthur Work Phone: [facility] 11-30-2022 17:11-0400 Respiratory rate 18 /min Eb Mcarthur Work Phone: [facility] 11-30-2022 17:11-0400 SaO2% (BldA) [Mass fraction] 98 % Eb Mcarthur Work Phone: [facility] 11-30-2022 17:11-0400 Systolic blood pressure 122 mm[Hg] Eb Mcarthur Work Phone: [facility] 11-30-2022 14:40-0400 Body height 182.9 cm Eb Mcarthur Work Phone: [facility] 11-30-2022 14:40-0400 Body mass index (BMI) [Ratio] 24.14 kg/m2 Eb Mcarthur Work Phone: [facility] 11-30-2022 14:40-0400 Body temperature 96.8 [degF] Eb Mcarthur Work Phone: [facility] 11-30-2022 14:40-0400 Body weight 80.74 kg Eb Mcarthur Work Phone: [facility] 01-08-2022 17:30-0400 Diastolic blood pressure 80 mm[Hg] Oscar Ventura [facility] 01-08-2022 17:30-0400 Heart rate 86 /min Oscar Lorenzo [facility] 01-08-2022 17:30-0400 Mean blood pressure 92 mm[Hg] Oscar Lorenzo [facility] 01-08-2022 17:30-0400 SaO2% (BldA) [Mass fraction] 95 % Oscar Lorenzo [facility] 01-08-2022 17:30-0400 Systolic blood pressure 117 mm[Hg] Oscar Lorenzo [facility] 01-08-2022 17:00-0400 Diastolic blood pressure 77 mm[Hg] Oscar Lorenzo [facility] 01-08-2022 17:00-0400 Mean blood pressure 89 mm[Hg] Oscar Lorenzo [facility] 01-08-2022 17:00-0400 SaO2% (BldA) [Mass fraction] 93 % Oscar Lorenzo [facility] 01-08-2022 17:00-0400 Systolic blood pressure 114 mm[Hg] Oscar Lorenzo [facility] 01-08-2022 16:00-0400 Diastolic blood pressure 74 mm[Hg] Oscar Lorenzo [facility] 01-08-2022 16:00-0400 Heart rate 82 /min Oscar Lorenzo [facility] 01-08-2022 16:00-0400 Mean blood pressure 87 mm[Hg] Oscar Lorenzo [facility] 01-08-2022 16:00-0400 Systolic blood pressure 112 mm[Hg] Oscar Lorenzo [facility] 01-08-2022 15:33-0400 Body temperature 97.88 [degF] Oscar Ventura [facility] 01-08-2022 15:33-0400 Heart rate 87 /min Oscar Lorenzo [facility] 01-08-2022 15:33-0400 Respiratory rate 16 /min Oscar Ventura [facility] Encounters Encounter Date Encounter Type Care Provider Facility Start: 10-01-2024 End: 10-01-[address] Joesph Bearden Work Phone: [facility] Work Phone: Start: 10-01-2024 End: 10-01-[address] Diamond Diez MD -[facility] Work Phone: Start: 08-26-2024 End: 08-26-2024 ambulatory EDIL BRUSH Not Available Start: 08-26-2024 End: 08-26-2024 Bamboo flowsheet Edil Brush MD Work Phone: [facility] Start: 08-26-2024 End: 08-26-2024 Bamboo flowsheet Edil Brush MD Work Phone: [facility] Start: 08-17-2024 End: 08-17-2024 Emergency department patient visit Dr. Joesph Bearden Work Phone: -Emergency Department Work Phone: Start: 08-08-2024 End: 08-08-2024 Clinisync Result Encounter Edil Brush MD Work Phone: [facility] Unsolicited Start: 08-08-2024 End: 08-08-2024 Clinisync Result Encounter Edil Brush MD Work Phone: [facility] Unsolicited Start: 08-08-2024 End: 08-08-2024 ambulatory Facility:[facility] Start: 08-05-2024 End: 08-08-2024 Telephone encounter Edil Brush MD Work Phone: [facility] 111 Start: 07-24-2024 End: 07-25-2024 Refill Edil Brush MD Work Phone: [facility] 111 Comment on above: 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) Start: 06-06-2024 End: 06-06-2024 Bamboo flowsannette Brush MD Work Phone: [facility] Start: 06-06-2024 End: 06-06-2024 Bamboo flowsheet Edil Bruhs MD Work Phone: [facility] Start: 06-06-2024 End: 06-06-2024 Patient encounter procedure Edil Brush MD Work Phone: [facility] 111 Comment on above: Focal epilepsy with impairment of consciousness, intractable (CMS/HCC) (Primary Dx); Status post VNS (vagus nerve stimulator) placement; DOUG (obstructive sleep apnea); Osteopenia of multiple sites Start: 06-06-2024 End: 06-06-2024 ambulatory EDIL BRUSH Not Available Start: 04-25-2024 End: 04-25-2024 Refill Cherie Zamudio NP Work Phone: 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) Start: 03-20-2024 End: 03-20-2024 ambulatory MAGI INMAN Facility:[facility] Start: 02-14-2024 End: 02-14-2024 Davidboenrique Brush MD Work Phone: [facility] Start: 02-14-2024 End: 02-14-2024 Bamboo flowsannette Brush MD Work Phone: [facility] Start: 02-14-2024 End: 02-14-2024 ambulatory EDIL BRUSH Not Available Start: 02-14-2024 End: 02-14-2024 Office outpatient visit 25 minutes Edil Brush MD Work Phone: [facility] 111 Comment on above: Focal epilepsy with impairment of consciousness, intractable (CMS/HCC) (Primary Dx); Status post VNS (vagus nerve stimulator) placement; DOUG (obstructive sleep apnea); Osteopenia of multiple sites; Other osteoporosis, unspecified pathological fracture presence (CMS/HCC); Drug-induced osteoporosis (CMS/HCC); Osteopenia of neck of femur, unspecified laterality; Osteopenia of lumbar spine Start: 02-06-2024 End: 02-06-2024 ambulatory MAGI INMAN Facility:[facility] Start: 01-03-2024 End: 01-03-2024 Emergency department patient visit Prateek Aura Facility:[facility] Start: 10-20-2023 End: 10-20-2023 Emergency department patient visit Mainor Wesley [facility] Start: 08-15-2023 End: 08-15-2023 ambulatory EDIL BRUSH Facility:[facility] Start: 08-15-2023 End: 08-15-2023 Patient encounter procedure EDIL BRUSH [facility] Start: 08-03-2023 End: 08-04-2023 ambulatory [facility] Start: 06-26-2023 End: 06-26-2023 ambulatory [facility] Work Phone: Start: 06-26-2023 End: 06-26-2023 Patient encounter procedure [facility] Work Phone: Start: 05-18-2023 Refill Melani Dozier MA NO MS [facility] 111 Comment on above: 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) Start: 05-15-2023 Refill Melani Dozier MA NO MS [facility] 111 Comment on above: 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 ([facility]/HCC) Start: 05-09-2023 End: 05-09-2023 ambulatory Ralph Crews Facility:[facility] Start: 05-09-2023 End: 05-09-2023 Patient encounter procedure Ralph Crews [facility] Start: 02-27-2023 End: 02-27-2023 ambulatory German Castillo Facility:[facility] Start: 02-27-2023 End: 02-27-2023 Patient encounter procedure German Castillo [facility] Start: 02-27-2023 End: 02-27-2023 ambulatory German Castillo Facility:[facility] Start: 02-27-2023 End: 02-27-2023 Patient encounter procedure German Castillo [facility] Start: 02-17-2023 End: 02-17-2023 Emergency department patient visit [facility] Start: 02-01-2023 End: 02-02-2023 ambulatory [facility] Start: 11-30-2022 End: 11-30-2022 Emergency department patient visit [facility] Start: 11-30-2022 End: 11-30-2022 Emergency department patient visit [facility] Work Phone: [facility] ED Comment on above: Closed fracture of n georgette bone, initial encounter (Primary Dx); Abrasion; Facial laceration, initial encounter; Seizure ([facility]) Start: 08-10-2022 End: 08-11-2022 ambulatory [facility] Start: 08-10-2022 End: 08-10-2022 Subsequent hospital visit by physician [facility] Schedule [facility] Comment on above: Arrived Start: 01-08-2022 End: 01-08-2022 Emergency department patient visit Oscar Jd Ventura [facility] Start: 10-07-2021 AUDIT Alice mera MD Work Phone: [facility] Work Phone: Start: 10-07-2021 SURGSUBURB, Provider : Alice Herndon, Status: Pen, Time: 8:00 AM Alice Herndon MD Work Phone: [facility] Work Phone: Start: 10-05-2021 Chart Update Alice mera MD Work Phone: [facility] Work Phone: Start: 08-25-2021 End: 08-25-2021 Subsequent hospital visit by physician [facility] Comment on above: Arrived Start: 06-15-2021 Office outpatient vi sit 15 minutes Alice Herndon MD Work Phone: -[facility] Work Phone: Start: 11-23-2020 End: 11-23-2020 Subsequent hospital visit by physician [facility] Comment on above: Arrived Start: 02-19-2020 End: 02-19-2020 Subsequent hospital visit by physician [facility] Comment on above: Arrived Start: 08-30-2019 End: 08-30-2019 Subsequent hospital visit by physician [facility] Comment on above: Arrived Start: 05-20-2019 End: 05-22-2019 Subsequent hospital visit by physician [facility] Comment on above: Arrived Start: 12-19-2018 End: 12-19-2018 Subsequent hospital visit by physician [facility] Comment on above: Arrived Procedures Date Procedure Procedure Detail Performing Clinician Start: 08-17-2024 CT of head without contrast Dr. Joesph Bearden Work Phone: Start: 08-08-2024 [facility] PHENYTOIN KEENAN-EILEEN Brush MD Work Phone: Start: 08-08-2024 [facility] VALPROATE PK Brush MD Work Phone: Start: 02-05-2023 H/O: surgery Status post uvulopalatopharyngoplasty Melani Jacoby YANG Start: 11-30-2022 Ct maxillofacial w/o contrast material Jacey Arturo ko [employer]PER[employer]OR - [employer]CISION INSTRUMENT AND TOOL [employer]KER Work Phone: Start: 11-23-2020 Drug screen quantitative phenobarbital Edil Brush MD Work Phone: Excision of uvula Alice hilario MD Work Phone: Insertion of vagal nerve stimulator Alice Herndon MD Work Phone: Nasal septoplasty Alice hilario MD Work Phone: Vagal nerve stimulator (physical object) Oscar Lorenzo Plan of Treatment Date Care Activity Detail Author Start: 11-30-2032 DTaP/Tdap/Td vaccine (3 - Td or Tdap) DTaP/Tdap/Td vaccine (3 - Td or Tdap) [facility] Start: 02-26-2026 DTaP/Tdap/Td vaccine (2 - Td or Tdap) DTaP/Tdap/Td vaccine (2 - Td or Tdap) [facility] Start: 02-26-2026 DTaP/Tdap/Td vaccine (2 - Td) DTaP/Tdap/Td vaccine (2 - Td) [place] Start: 08-26-2024 End: 08-26-2024 Patient encounter procedure [facility] 111 Comment on above: Arrived Start: 08-17-2024 [facility] Start: 08-17-2024 Smpl repair scalp/neck/ax/genit/trun k 2.6-7.5cm RPR S/N/AX/GEN/TRNK2.6-7.5C M [facility] Start: 06-06-2024 End: 06-06-2024 Patient encounter procedure 06/06/2024 2:00 PM EST Office Visit [facility] 111 [address] [place] [phone] Edil Brush MD [address] [place] [id number] Arrived [facility] 111 Comment on above: Arrived Start: 02-14-2024 End: 02-13-2025 DXA Skeletal system Views for bone density DEXA bone density Imaging Routine Other osteoporosis, unspecified pathological fracture presence (CMS/HCC) 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, unspecified laterality Osteopenia of lumbar spine Expected: 02/14/2024 (Approximate), Expires: 02/13/2025 [facility] Work Phone: Comment on above: Expected: 02/14/2024 (Approximate), Expires: 02/13/2025 Start: 08-09-2023 End: 08-09-2023 Patient encounter procedure 08/09/2023 10:30 AM EDT Office Visit [facility] [address] [phone] Edil Brush MD [address] [address] [facility] Start: 2023 Shingles Vaccine (1 of 2) Shingles Vaccine (1 of 2) [facility] Work Phone: Start: 12-09-2022 Influenza vaccination Influenza Vacc ine (#1) [facility] Start: 11-08-2022 Influenza vaccination [facility] Start: 12-09-2021 Influenza vaccination Flu vacc ine (Season Ended) [facility] Start: 12-09-2020 Influenza vaccination Flu vaccine (# 1) [facility] Work Phone: Start: 12-10-2019 Influenza vaccination M [place] Start: 12-09-2018 Influenza vaccination Flu vaccine (# 1) [place] Start: 09-30-2018 Annual Wellness Visi t (AWV) Annual Wellness Visit (AWV) [place] Start: 2018 Screening for malign ant neoplasm of colon [facility] Start: 2013 Lipid panel [facility] Start: 2013 Lipid screen Lipid screen [place], [place] Start: 1991 Hepatitis C screening Hepatitis C [facility] Start: 01-10-1988 HIV screen HIV screen [place], [place] Start: 01-10-1988 HIV screening HIV screen [facility] Start: 1985 COVID-19 Vaccine (1) COVID-19 Vaccin e (1) [facility] Work Phone: Start: 1985 Depression Screen Depression Screen [facility] Start: 1978 COVID-19 Vaccine (1) COVID-19 Vaccin e (1) [facility] Start: 1973 COVID-19 Vaccine (#1) COVID-19 Vacci ne (#1) [facility] Start: 1973 Hepatitis C screening Hepatitis C [facility] Work Phone: Start: 1973 Medicare Annual Well ness (AWV) Medicare Annual Wellness (AWV) [facility] Start: 1973 Screening for malign ant neoplasm of colon [facility] CBC W Auto Different ial panel - Blood [facility] Comprehensive metabo lic 1999 panel - Serum or Plasma [facility] Lipid 1996 panel - S oriana or Plasma [facility] Patient Education ED Head Injury (Adult) ED Laceration Scalp Stitches or [place] [facility] Work Phone: Patient referral [facility] Work Phone: End: 08-25-2021 PHENOBARBITAL, FREE [facility] Work Phone: Comment on above: Once for 1 Occurrenc es starting 08/25/2021 until 08/25/2021 End: 08-30-2019 Phenytoin Level, Total and Free Phenytoin Level, Total and Free Lab Routine Once for 1 Occurrences starting 08/30/2019 until 08/30/2019 [facility], [place] Comment on above: Once for 1 Occurrenc es starting 08/30/2019 until 08/30/2019 Phenytoin Level, Tot al and Free [facility], [place] End: 02-19-2020 Phenytoin Level, Total and Free Phenytoin Level, Total and Free Lab Routine Once for 1 Occurrences starting 02/19/2020 until 02/19/2020 [facility] [place] Comment on above: Once for 1 Occurrenc es starting 02/19/2020 until 02/19/2020 End: 12-19-2018 Phenytoin Level, Total and Free Phenytoin Level, Total and Free Lab Routine Once for 1 Occurrences starting 12/19/2018 until 12/19/2018 [facility], [place] Comment on above: Once for 1 Occurrenc es starting 12/19/2018 until 12/19/2018 End: 11-23-2020 Phenytoin Level, Total and Free Phenytoin Level, Total and Free Lab Routine Once for 1 Occurrences starting 11/23/2020 until 11/23/2020 [employer] Phone: Comment on above: Once for 1 Occurrenc es starting 11/23/2020 until 11/23/2020 End: 08-10-2022 Phenytoin Level, Total and Free [facility] [employer] Phone: Comment on above: Once for 1 Occurrenc es starting 08/10/2022 until 08/10/2022 End: 08-30-2019 Topiramate Level Topiramate Level Lab Routine Once for 1 Occurrences starting 08/30/2019 until 08/30/2019 [facility], [place] Comment on above: Once for 1 Occurrenc es starting 08/30/2019 until 08/30/2019 Topiramate Level [facility] End: 02-19-2020 Topiramate Level Topiramate Level Lab Routine Once for 1 Occurrences starting 02/19/2020 until 02/19/2020 [facility], [place] Comment on above: Once for 1 Occurrenc es starting 02/19/2020 until 02/19/2020 End: 12-19-2018 Topiramate Level Topiramate Level Lab Routine Once for 1 Occurrences starting 12/19/2018 until 12/19/2018 [facility], [place] Comment on above: Once for 1 Occurrenc es starting 12/19/2018 until 12/19/2018 End: 11-23-2020 Topiramate Level Topiramate Level Lab Routine Once for 1 Occurrences starting 11/23/2020 until 11/23/2020 [employer] Phone: Comment on above: Once for 1 Occurrenc es starting 11/23/2020 until 11/23/2020 End: 08-25-2021 Topiramate Level [employer] Phone: Comment on above: Once for 1 Occurrenc es starting 08/25/2021 until 08/25/2021 End: 08-10-2022 Topiramate Level [facility] [employer] Phone: Comment on above: Once for 1 Occurrenc es starting 08/10/2022 until 08/10/2022 End: 08-30-2019 Valproic Acid Level, Free Valproic Acid Level, Free Lab Routine Once for 1 Occurrences starting 08/30/2019 until 08/30/2019 [facility] [place] Comment on above: Once for 1 Occurrenc es starting 08/30/2019 until 08/30/2019 Valproic Acid Level, Free [facility] [place] End: 02-19-2020 Valproic Acid Level, Free Valproic Acid Level, Free Lab Routine Once for 1 Occurrences starting 02/19/2020 until 02/19/2020 [facility] [place] Comment on above: Once for 1 Occurrenc es starting 02/19/2020 until 02/19/2020 End: 12-19-2018 Valproic Acid Level, Free Valproic Acid Level, Free Lab Routine Once for 1 Occurrences starting 12/19/2018 until 12/19/2018 [employer] [place], [place] Comment on above: Once for 1 Occurrenc es starting 12/19/2018 until 12/19/2018 End: 11-23-2020 Valproic Acid Level, Free Valproic Acid Level, Free Lab Routine Once for 1 Occurrences starting 11/23/2020 until 11/23/2020 [employer] Phone: Comment on above: Once for 1 Occurrenc es starting 11/23/2020 until 11/23/2020 End: 08-25-2021 Valproic Acid Level, Total and Free [employer] Work Phone: Comment on above: Once for 1 Occurrenc es starting 08/25/2021 until 08/25/2021 End: 08-10-2022 Valproic Acid Level, Total and Free [facility] Work Phone: Comment on above: Once for 1 Occurrenc es starting 08/10/2022 until 08/10/2022 Immunizations Immunization Date Immunization Notes Care Provider Fa [facility] 08-17-2024 tetanus toxoid, reduced diphtheria toxoid, and acellular pertussis vaccine, adsorbed Dr. Joesph Bearden Work Phone: [facility] 08-16-[address] Joesph Bearden Work Phone: [facility] 06-12-2023 tetanus toxoid, reduced diphtheria toxoid, and acellular pertussis vaccine, adsorbed Dr. Joesph Bearden Work Phone: [facility] 06-12-[address] Joesph Bearden Work Phone: [facility] 11-30-2022 tetanus toxoid, reduced diphtheria toxoid, and acellular pertussis vaccine, adsorbed Eb Mcarthur Work Phone: [facility] Comment on above: Result Comment: 2022: VIS DATE: 11/13/2020 01-08-2020 influenza virus vaccine, unspecified formulation German Castillo [facility] 01-08-2020 influenza, injectable, quadrivalent, preservative free Dr. Joesph Bearden Work Phone: [facility] 02-27-2016 tetanus toxoid, reduced diphtheria toxoid, and acellular pertussis vaccine, adsorbed [facility] 02-05-2015 influenza virus vaccine, unspecified formulation German Castillo [facility] 02-05-2015 Seasonal, quadrivalent, recombinant, injectable influenza vaccine, preservative free Dr. Joesph Vivar DO Work Phone: [facility] 02-02-2013 influenza virus vaccine, unspecified formulation German Castillo [facility] 02-02-2013 influenza, injectable, quadrivalent, preservative free Dr. Joesph Vivar DO Work Phone: [facility] 01-23-2012 influenza virus vaccine, unspecified formulation German Castillo [facility] 01-23-2012 influenza, injectable, quadrivalent, preservative free Dr. Joesph Vivar DO Work Phone: [facility] NEGATED: Highlighted row has not occurred!02-27-2023 influenza virus vaccine, unspecified formulation German Castillo [facility] NEGATED: Highlighted row has not occurred!02-27-2023 SARS-CoV-2 mRNA (tozinameran 5y-11y) vaccine German Jonathan [facility] Payers Date Payer Category Payer Self-pay [id number] 2023 Medicare (Managed Care) MEDICAL MUTUAL MEDICARE [id number] 2022 Medicare MEDICAL MUTUAL M EDICARE MEDICAL MUTUAL MEDICARE [id number] 2022-Present [address] [place] [address] [id number] 2014 Medicare MEDICAL MUTUAL M EDICARE ADVANTAGE MEDICAL MUTUAL ADVANTAGE CLASSIC HMO xxxxxxx 2014-Present [address] [place] [address] xxxxxxx [id number] 2014 Medicare [id number] [id number] 1973 Unknown [id number] 2.16.840.1.549739.3.579. 2.185 1973 Unknown [id number] 2.16.840.1.503549.3.579. 2.185 1973 Unknown [id number] 2.16.840.1.982516.3.579. 2.185 1973 Unknown [id number] 2.16.840.1.123470.3.579. 2.185 1973 Unknown [id number] 2.16.840.1.388459.3.579. 2.185 1973 Unknown [id number] 2.16.840.1.203786.3.579. 2.727 1973 Unknown [id number] 2.16.840.1.902866.3.579. 2.727 1973 Unknown [id number] 2.16.840.1.405075.3.579. 2.727 1973 Unknown [id number] 2.16.840.1.543544.3.579. 2.727 1973 Unknown [id number] 2.16.840.1.408036.3.579. 2.727 1973 Unknown [id number] 2.16.840.1.747130.3.579. 2.727 1973 Unknown [id number] 2.16.840.1.752806.3.579. 2.1259 1973 Unknown [id number] 2.16.840.1.889902.3.579. 2.1259 1973 Unknown [id number] 2.16.840.1.265944.3.579. 2.1259 Unknown Unknown [id number] 2.16.840.1.645811.3.579. 2.462 Unknown [id number] 2.16.840.1.857313.3.579. 2.462 Unknown [id number] 2.16.840.1.503533.3.579. 2.462 Unknown [id number] 2.16.840.1.602930.3.579. 2.462 Unknown [id number] 2.16.840.1.412678.3.579. 2.462 Social History Date Type Detail Facility Start: 10-18-2018 End: 10-01-2024 Tobacco smoking status NHIS Never smoker [place], [place] Start: 10-18-2018 End: 11-30-2022 Alcohol intake Current non-drinker of alcohol (finding) [facility] Work Phone: Start: 1975 Sex Assigned At Not on file [place] Start: 07-26-2017 End: 10-18-2018 Tobacco use and exposure Never used [place] Start: 10-18-2018 Alcohol intake No [place] No alcohol use No alcohol use [place] [address] Work Phone: Tobacco smoking status No Smokin g Status Entered [facility] Tobacco smoking status Never [facility] Start: 03-18-2020 Tobacco smoking status NHIS Tobacco smoking consumption unknown [facility] Start: 1975 Sex Assigned At Male [facility] Sexual Orientation Heterosexual (finding) [facility] Functional Status Date Assessment Result Facility 10-20-2023 Functional Status N/A [facility] 02-27-2023 Functional Status N/A [facility] 01-08-2022 Functional Status N/A [facility] Clinical Notes 11-08-2018 to 08-17-2024 Telephone Encounter - Cedric High - 08/05/2024 9:48 AM EDTTelephone Encounter - Cedric High - 08/05/2024 9:48 AM EDTMnae Brush MD - 06/06/2024 2:00 PM ESTMark Kristel Brush MD - 06/06/2024 2:00 PM EST Note Date & Type Note Facility 08-17-2024 Radiology Diagnostic study note [facility] Imaging Services [address] [place] [place], [place] [address] Brain/Head without Contrast MR#: [id number] Acct: [id number] Name: VAMSI JUAREZ Rep #: [id number] : 1975 M 49 From: Nedra Fofana MD PCP: EDIL BRUSH Status: REG ER Study:Brain/Head without Contrast Date of Exa m: 08/17/24 Exam# [id number] Ordering Dr: Joesph Vivar DO PROCEDURE: BRAIN/HEAD WITHOUT CONTRAST 08/17/2024 REASON FOR EXAM: HEAD INJURY TECHNIQUE: Head CT without intravenous contrast. Coronal and Sagittal reconstruction serieswere provided. One or more dose reduction techniques were used (e.g., Automated exposure control, adjustment of the mA and/or kV according to patient size, use of iterative reconstruction technique. COMPARISON: None FINDINGS: * ACUTE: No acute infarct or hemorrhage. No mass effect or herniation. * BRAIN PARENCHYMA: Signal intensities are within normal limits for age. * VENTRICLES/EXTRA-AXIAL SPACES: No hydrocephalus or extra-axial fluid collections. * EXTRACRANIAL STRUCTURES: Visualized osseous structures are normal. Soft tissues are normal. CT/Brain/Head without Contrast IMPRESSION: No acute intracranial abnormality. Reading Location: BILL CC: Dr. Joesph Vivar DO; EDIL BRUSH ~ Senior Project Architect: Signed [facility] 08-05-2024 Telephone encounter Note states patient started taking 2 Topamax 200 mg and 1 Topiramate 200 mg q12h 3 weeks ago, on 07/30/24 patient started walking like he was drunk and reaching out to hang on to things. Hands are very shaky, he doesn't seem like himself, short tempered, he is frustrated with himself. is transitioning him from name brand to generic and this is as far she got, she didn't want to go any further with the symptoms that he is having. Jewels [phone] [facility] 08-05-2024 Miscellaneous Notes states patient started taking 2 Topamax 200 mg and 1 Topiramate 200 mg q12h 3 weeks ago, on 07/30/24 patient started walking like he was drunk and reaching out to hang on to things. Hands are very shaky, he doesn't seem like himself, short tempered, he is frustrated with himself. is transitioning him from name brand to generic and this is as far she got, she didn't want to go any further with the symptoms that he is having. Jewels [phone] documented in this encounter [facility] 06-06-2024 History of Presen t illness Narrative Associated Problem(s): Focal epilepsy with impairment of consciousness, intractable ([facility]) Driving - not permitted. (Continue current regimen.) Levels before appt. Associated Problem(s): Status post VNS (vagus nerve stimulator) placement (Continue VNS.) Associated Problem(s): DOUG (obstructive sleep apnea) Sleep positioning tx could be used instead of PAP. If this is less effective, may remain on PAP. (Still tolerating pressure.) Could continue PAP at home only and positioning tx when away. Associated Problem(s): Osteopenia of multiple sites (Continue Ca+D, weight-bearing exercises.) Plan redo bone density study 2025. Must separate PHT from all calcium sources by 2h. Images from the original note were not included. Outpatient Progress Note Patient: Vamsi Juarez Dept: Neurology : 1975 Appt Date: 06/06/2024 Prev Appt: 05/13/2024 Chief Complaint Patient presents with VNS VNS CHECK ONLY. REMAINDER OF NOTE FOR REFERENCE ONLY Assessment and Plan - Assessment & Plan Focal epilepsy with impairment of consciousness, intractable (CMS/HCC) Driving - not permitted. (Continue current regimen.) Levels before appt. Status post VNS (vagus nerve stimulator) placement (Continue VNS.) DOUG (obstructive sleep apnea) Sleep positioning tx could be used instead of PAP. If this is less effective, may remain on PAP. (Still tolerating pressure.) Could continue PAP at home only and positioning tx when away. Osteopenia of multiple sites (Continue Ca+D, weight-bearing exercises.) Plan redo bone density study 2025. Must separate PHT from all calcium sources by 2h. No orders of the defined types were placed in this encounter. Follow-Up - No follow-ups on file. History of Present Illness, Associated Treatments and Results - Dx EPILEPSY . OSTEOPOENIA Tx PHT 200 q12 [13.8/1.4f, was 13.4/1.7f, 13..24 / 1.2..3.1f outlier 9.4 (total)] + VPA ER 1000/1500 [63/6.1f, was 70/11f, 42..70 outlier 42 / 7..8f] + TPM 600 q12 [10.2, was 21 (peak), 7.8..__ peak 21] + clorazepate 3.75 (+ VitD+Ca) AEs none Hx Absences - ~1/w (had been 3-4/w for a while). Head jerks - 3/w. GTCs - 2022 Nov, off PHT x 3 d, had not filled pill sorter with med. ... Prev GTC - 2014 (@ PHT=6.6), 2012 (missed dose). Prev pt of Dr. Diaz. Failed CBZ ?dose, VPA ?dose, PHT+VPA, FBM ?dose, LTG 700 (?why), TPM, LEV 2000 (?why), PGB 600 Onset age 7-8, GTC age 11-12 Semeiology staring -> GTC Aetiology idiopathic Trigger stress Preg EEG (06/1993, [facility]) - SpW 2-2.5 Hz gen, PSp gen & multiregional, Slow 2-3 Hz lat R Slow SpW (by ref) Amb EEG (05/2003, 2 d) - EEG nl, CLIN parox event x 3 VEEG (07/2003, [facility], 4 d) - SpW gen; PSpW gen; 6 sz - SpW or beta-gamma buzz; CLIN sz #6 = R head version -> oral automatisms -> vocalization -> GTC, EEG onset L temporal @ -94 s -> ipsi spread -> gen. KENYA MR (05/2003, [facility], c/s Gd epilepsy protocol) - neg (07/1996, [facility]) - ess nl, ill-defined vague ^T2 perivent WM PET SPECT Imaging Dexa (08/2023, [facility]) - osteopoenia . . . . (08/2018) - osteopenia, -1.2L fem, -1R fem . . . . (05/2013) - nl . . . . (2007) Testing Surgery VNS (01/2007, [facility]), (10/2003, [facility]) Born - at term , labor and delivery - normal Congenital anomalies - absent complications - absent Meningitis/encephalitis - absent Head trauma - none Structural lesions - absent Febrile seizures - none FHx epilepsy - absent FHx febrile sz - absent VNS Parameters Curr New Magnet Use Routine Stimulation This visit 97 Output current (mA) 2.75 Last visit 54 Signal freq (Hz) 25 Net Pulse width ( s) 250 Signal On Time (s) 60 Signal Off Time (min.) 1.1 Diagnostics Magnet Settings System Dx Output current (mA) 3.00 Normal Mode Dx Pulse width ( s) 500 Magnet Dx On time (s) 60 Impedance (?) 1444 Autostim Settings End of Service Output current (mA) 3.00 Pulse width ( s) 500 On time (s) 60 Device Information [employer] Model # 106 Serial # [id number], [id number] Date Implanted , Surgeon Yanick Signal On Time 11-25% () Comment ___ Dx DOUG Tx CPAP @ 10 (was 18) + UPPP Mar 2009 (+ old tosillectomy) Aes Hx Download - reviewed. Use - excellent. Mask - fits well, no leak. PAP clearly improves sleep and daytime wakefulness. Failed Semeiol Snores. Witnessed apnoeas. Awakens 3-4 x/night. Mouth dry AM. Tired AM and through the day. Poor sleep worsens seizure frequency. Circad Noct oxim PSG ([place] ,ord as split) - AHI=1.4 (AASM 4.2), REM=4.2 vs 0.8 (AASM 7.8 vs 3.5), supine=3.3 vs 0 (6.9 vs 2.2); PLMI=0 < 2008 (_) - ___ PAPT - AHI=0.8 @ 10 with REM - AHI=0 @ 10 & 11, with REM - AHI=0.7 @ 7 - AHI=0 @ 9; RERAs at lower pressures. [facility]WT Imaging Testing Surgery ([facility]) - UPPP Physical Exam - General appearance, mentation, extraocular movements, facial strength and movement, hearing, upper and lower extremity strength and tone, sensation to gross testing, coordination, and gait are normal or at baseline unless noted below. HEENT - ___, unchanged: ___, orig: ___ MS - ___, unchanged: ___, orig: ___ CNN - ___, unchanged: Nystagmus, minimal, orig: ___ Motor - ___, unchanged: ___, orig: ___ Sens - ___, unchanged: Romberg neg, orig: ___ Reflex - ___, unchanged: ___, orig: ___ Coord - ___, unchanged: ___, orig: ___ Gait - ___, unchanged: Tandem nl, orig: ___ Vestib - ___, unchanged: ___, orig: ___ MSK - ___, unchanged: ___, orig: ___ Other - ___, unchanged: ___, orig: ___ Vital Signs - There were no vitals taken for this visit. Review of Systems - . Const: Denies appetite change, fever, chills. Allergy: Denies medication reaction. Ocular: Denies visual acuity change. ENT: Denies hearing change. Endoc: Denies weight loss. Resp: Denies dyspnoea, wheezing. Cardiac: Denies angina, palpitations. GI: Denies nausea, vomiting. Haem: Denies bleeding. : Denies incontinence. MSK: Denies arthralgias, joint oedema. Derm: Denies rash, hair loss. Neuro: Denies ataxia, tremor. Also see HPI for elements of ROS documented therein and for details of positive findings, which shall supersede the foregoing. PMH, PSH, Allergies, FH, SH - No past medical history on file. No past surgical history on file. No Known Allergies No family history on file. Outpatient Encounter Medications as of 06/06/2024 Medication Sig Dispense Refill cetirizine (ZyrTEC) 10 MG tablet Take 10 mg by mouth Daily as needed for allergies clorazepate (Tranxene) 3.75 MG tablet Take 1 tablet (3.75 mg) by mouth every 12 (twelve) hours 180 tablet 0 Depakote ER 500 MG 24 hr tablet tablets Orally 2 QAM and 3 QPM for 90 days 450 tablet 3 Dilantin 100 MG capsule 2 caps Q12 hours 360 capsule 3 [id number] C-MN PO Take by mouth Multiple Vitamin (Multi Vitamin Daily) tablet 1 (one) time each day at the same time Topamax 200 MG tablet 3 tabs Q12 540 tablet 3 topiramate (Topamax) 200 MG tablet 3 tabs Q12 180 tablet 3 No facility-administered encounter medications on file as of 06/06/2024. Edil Brush M.D. [facility] Neurology ? [address] ? [place], [place] [address] ? ? fax Neurology ? Clinical Neurophysiology ? Epilepsy ? Sleep Disorders ? Clinical Informatics documented in this encounter [facility] 04-15-2024 Telephone encounter Note Noemí called and asked for 1 wk supply be sent to [facility] and 90 day supply be sent to [facility]. I called in 1 wks worth. Sent [address] Brush [facility] 04-15-2024 Miscellaneous Notes Noemí called and asked for 1 wk supply be sent to [facility] and 90 day supply be sent to [facility]. I called in 1 wks worth. Sent [address] Brush documented in this encounter [facility] 02-14-2024 History of Presen t illness Narrative Associated Problem(s): Focal epilepsy with impairment of consciousness, intractable (CMS/HCC) Driving - not permitted. (Continue current regimen.) Levels before appt. Associated Problem(s): Status post VNS (vagus nerve stimulator) placement (Continue VNS.) Associated Problem(s): DOUG (obstructive sleep apnea) Sleep positioning tx could be used instead of PAP. If this is less effective, may remain on PAP. (Still tolerating pressure.) Could continue PAP at home only and positioning tx when away. Associated Problem(s): Osteopenia of multiple sites (Continue Ca+D, weight-bearing exercises.) Bone density study - locally. Must separate PHT from all calcium sources by 2h. Images from the original note were not included. Outpatient Progress Note Patient: Vamsi Juarez Dept: Neurology : 1975 Appt Date: 02/14/2024 Prev Appt: Visit date not found Chief Complaint Patient presents with Migraine Osteopenia of multiple sites Assessment and Plan - Assessment & Plan Focal epilepsy with impairment of consciousness, intractable (CMS/HCC) Driving - not permitted. (Continue current regimen.) Levels before appt. Status post VNS (vagus nerve stimulator) placement (Continue VNS.) DOUG (obstructive sleep apnea) Sleep positioning tx could be used instead of PAP. If this is less effective, may remain on PAP. (Still tolerating pressure.) Could continue PAP at home only and positioning tx when away. Osteopenia of multiple sites (Continue Ca+D, weight-bearing exercises.) Bone density study - locally. Must separate PHT from all calcium sources by 2h. No orders of the defined types were placed in this encounter. Follow-Up - Follow up in about 6 months (around 08/13/2024). History of Present Illness, Associated Treatments and Results - Dx EPILEPSY . OSTEOPOENIA Tx PHT 200 q12 [13.8/1.4f, was 13.4/1.7f, 13..24 / 1.2..3.1f outlier 9.4 (total)] + VPA ER 1000/1500 [63/6.1f, was 70/11f, 42..70 outlier 42 / 7..8f] + TPM 600 q12 [10.2, was 21 (peak), 7.8..__ peak 21] + clorazepate 3.75 (+ VitD+Ca) AEs none Hx Absences - ~1/w (had been 3-4/w for a while). Head jerks - 3/w. GTCs - 2022, off PHT x 3 d, had not filled pill sorter with med. ... Prev GTC - 2014 (@ PHT=6.6), 2012 (missed dose). Prev pt of Dr. Diaz. Failed CBZ ?dose, VPA ?dose, PHT+VPA, FBM ?dose, LTG 700 (?why), TPM, LEV 2000 (?why), PGB 600 Onset age 7-8, GTC age 11-12 Semeiology staring -> GTC Aetiology idiopathic Trigger stress Preg EEG (06/1993, [facility]) - SpW 2-2.5 Hz gen, PSp gen & multiregional, Slow 2-3 Hz lat R Slow SpW (by ref) Amb EEG (05/2003, 2 d) - EEG nl, CLIN parox event x 3 VEEG (07/2003, [facility], 4 d) - SpW gen; PSpW gen; 6 sz - SpW or beta-gamma buzz; CLIN sz #6 = R head version -> oral automatisms -> vocalization -> GTC, EEG onset L temporal @ -94 s -> ipsi spread -> gen. KENYA MR (05/2003, [facility], c/s Gd epilepsy protocol) - neg (07/1996, [facility]) - ess nl, ill-defined vague ^T2 perivent WM PET SPECT Imaging Dexa (08/2018) - osteopenia, -1.2L fem, -1R fem . . . . (05/2013) - nl . . . . (2007) Testing Surgery VNS (01/2007, [facility]), (10/2003, [facility]) Born - at term , labor and delivery - normal Congenital anomalies - absent complications - absent Meningitis/encephalitis - absent Head trauma - none Structural lesions - absent Febrile seizures - none FHx epilepsy - absent FHx febrile sz - absent VNS Parameters Curr New Magnet Use Routine Stimulation This visit 54 Output current (mA) 2.75 Last visit Signal freq (Hz) 25 Net Pulse width ( s) 250 Signal On Time (s) 60 Signal Off Time (min.) 1.1 Diagnostics Magnet Settings System Dx Output current (mA) 3.00 Normal Mode Dx Pulse width ( s) 500 Magnet Dx On time (s) 60 Impedance (?) 1488 Autostim Settings End of Service Output current (mA) 3.00 Pulse width ( s) 500 On time (s) 60 Device Information Curr Prev Model # 106 Serial # [id number], [id number] Date Implanted , Surgeon Yanick Signal On Time 25-50% Comment ___ Dx DOUG Tx CPAP @ 10 (was 18) + UPPP Mar 2009 (+ old tosillectomy) Aes Hx Download - reviewed. Use - excellent. Mask - fits well, no leak. PAP clearly improves sleep and daytime wakefulness. Failed Semeiol Snores. Witnessed apnoeas. Awakens 3-4 x/night. Mouth dry AM. Tired AM and through the day. Poor sleep worsens seizure frequency. Circad Noct oxim PSG ([place] ,ord as split) - AHI=1.4 (AASM 4.2), REM=4.2 vs 0.8 (AASM 7.8 vs 3.5), supine=3.3 vs 0 (6.9 vs 2.2); PLMI=0 < 2008 (_) - ___ PAPT - AHI=0.8 @ 10 with REM - AHI=0 @ 10 & 11, with REM - AHI=0.7 @ 7 - AHI=0 @ 9; RERAs at lower pressures. MSLT MWT Imaging Testing Surgery ([facility]) - UPPP Physical Exam - General appearance, mentation, extraocular movements, facial strength and movement, hearing, upper and lower extremity strength and tone, sensation to gross testing, coordination, and gait are normal or at baseline unless noted below. HEENT - ___, unchanged: ___, orig: ___ MS - ___, unchanged: ___, orig: ___ CNN - ___, unchanged: Nystagmus, minimal, orig: ___ Motor - ___, unchanged: ___, orig: ___ Sens - ___, unchanged: Romberg neg, orig: ___ Reflex - ___, unchanged: ___, orig: ___ Coord - ___, unchanged: ___, orig: ___ Gait - ___, unchanged: Tandem nl, orig: ___ Vestib - ___, unchanged: ___, orig: ___ MSK - ___, unchanged: ___, orig: ___ Other - ___, unchanged: ___, orig: ___ Vital Signs - Visit Vitals BP 88/64 Pulse 77 Ht 6' Wt 165 lb BMI 22.38 kg/m BSA 1.95 m Review of Systems - . Const: Denies appetite change, fever, chills. Allergy: Denies medication reaction. Ocular: Denies visual acuity change. ENT: Denies hearing change. Endoc: Denies weight loss. Resp: Denies dyspnoea, wheezing. Cardiac: Denies angina, palpitations. GI: Denies nausea, vomiting. Haem: Denies bleeding. : Denies incontinence. MSK: Denies arthralgias, joint oedema. Derm: Denies rash, hair loss. Neuro: Denies ataxia, tremor. Also see HPI for elements of ROS documented therein and for details of positive findings, which shall supersede the foregoing. PMH, PSH, Allergies, FH, SH - No past medical history on file. No past surgical history on file. No Known Allergies No family history on file. Outpatient Encounter Medications as of 02/14/2024 Medication Sig Dispense Refill cetirizine (ZyrTEC) 10 MG tablet Take 10 mg by mouth Daily as needed for allergies clorazepate (Tranxene) 3.75 MG tablet Take 1 tablet (3.75 mg) by mouth every 12 (twelve) hours 180 tablet 1 Depakote ER 500 MG 24 hr tablet tablets Orally 2 QAM and 3 QPM for 90 days 450 tablet 3 [id number] C-MN PO Take by mouth Multiple Vitamin (Multi Vitamin Daily) tablet 1 (one) time each day at the same time phenytoin ER (Dilantin) 100 MG capsule 2 caps Q12 hours 360 capsule 3 Topamax 200 MG tablet 3 tabs Q12 540 tablet 3 topiramate (Topamax) 200 MG tablet 3 tabs Q12 540 tablet 3 No facility-administered encounter medications on file as of 02/14/2024. Eidl Brush M.D. [facility] ? [address] ? [place], [place] [address] ? ? fax Neurology ? Clinical Neurophysiology ? Epilepsy ? Sleep Disorders ? Clinical Informatics documented in this encounter [facility] 10-20-2023 Evaluation + Plan note Extrac stephanie from: Title:ED Note Author:Mainor Wesley DO Date:10/08 06/03 Scalp laceration (S01.01XA: Laceration without foreign body of scalp, initial encounter) Seizure (R56.9: Unspecified convulsions) Orders: fosphenytoin + Sodium Chloride 0.9% intravenous solution 500 mL, 762 mg = 15.24 mL, Injection, IV Piggyback, Once, Stop date 10/20/23 10:29:00 EDT, STAT, Start date 10/20/23 10:29:00 EDT, 1030.48 mL/hr, Infuse over 30 minute(s) tetanus/diphtheria/pertussis, acel (Tdap), 0.5 mL, Injection, Intramuscular-Immunization, Once, Stop date 10/20/23 9:42:00 EDT, STAT, Start date 10/20/23 9:42:00 EDT valproic acid + Sodium Chloride 0.9% intravenous solution 50 mL, 500 mg = 5 mL, Injection, IV Piggyback, Once, Stop date 10/20/23 10:29:00 EDT, STAT, Start date 10/20/23 10:29:00 EDT, 55 mL/hr, Infuse over 60 minute(s) CBC w/ Auto Diff Comprehensive Metabolic Panel CT Head or Brain w/o Contrast CT Spine Cervical w/o Contrast ECG 12 Lead Adult eGFR Ethanol Level Extra Blue Tube Extra Red Tube Extra SST Tube Phenytoin Level Total Valproic Acid Level [facility]07-12-2024 Hospital Discharge instructions Patient Education 10/20/2023 11:39:06 Sutures, Saira, or Adhesive Wound Closure Sutures, Saira, or Adhesive Wound Closure Wound closure refers to holding skin and underlying tissue together while it heals, such as after surgery or after an injury. Health care providers use stitches (sutures), saira, skin glue (tissue adhesive), and adhesive strips to close wounds. Your health care provider will use a wound closure method that helps you heal quickly and reduces the chances of infection or scarring. The type of wound closure depends on the location, size, and depth of your wound. More than one type of wound closure may be used on the same wound. In most cases, wounds are closed as soon as possible (primary skin closure). Sometimes, closure is delayed so the wound can be cleaned and then can heal naturally over weeks or months (delayed wound closure). This reduces the chance of infection. What are the different types of wound closure? Skin glue To use skin glue, your health care provider will hold the edges of the wound together and will paint the glue on the surface of your skin. You may need more than one layer of glue. Once the glue is dry, the wound may be covered with a bandage (dressing). This type of skin closure may be used for small wounds that are not deep (superficial wounds). It is often used for children and on facial wounds. Skin glue is less painful than other methods of wound closure, and it does not require medicine to numb the area (local anesthetic). This method also leaves nothing to be removed. Skin glue cannot be used for wounds that are deep, uneven, or bleeding. It is not used inside of a wound. Adhesive strips These strips are made of paper that is sticky (adhesive) and has many small holes in it. The stripsare applied across your wound edges like a regular bandage. Adhesive strips may be used to close very shallow wounds or surgical wounds. They may be used alongwith sutures to improve skin closure. Sutures Sutures come in many different materials, strengths, and sizes. They may break down as your wound heals (absorbable), or they may need to be removed (nonabsorbable). Your health care provider will sew your skin or the tissues under your skin together with sutures and a steel needle. Your skin edges may be closed in one long stitch or in separate stitches. Then the sutures will be tied and cut. Sutures can be used for all kinds of wounds. Absorbable sutures may be used to close tissues under the skin. Sutures can cause a skin reaction that can lead to infection. Saira To close a wound with saira, the edges of your skin on both sides of the wound will be brought close together. A staple will then be placed across the wound, and an instrument will secure the staple edges together. Saira are often used to close surgical incisions. They are faster to use than sutures, and they cause less skin reaction. [place] need to be removed using a tool that bends the saira away from your skin. Follow these instructions at home: Medicines Take oody-wmj-agvdvlp and prescription medicines only as told by your health care provider. If you were prescribed an antibiotic medicine, take it as told by your health care provider. Do notstop taking the antibiotic even if you start to feel better. Wound care Follow instructions from your health care provider about how to take care of your wound and dressing. Wash your hands with soap and water for at least 20 seconds before and after you change your dressing. If soap and water are not available, use hand plaster form maker. Do not try to remove your wound closures unless your health care provider tells you to do that. Youmay need a follow-up visit with your health care provider to remove your closures. ?Wound closures may stay in place for 2 weeks or longer. ?Absorbable sutures may dissolve after a few days or weeks. ?If adhesive strip edges start to loosen and curl up, you may trim the loose edges. Do not pick at your wound. Picking can cause an infection or cause your wound to reopen. Apply ointments or creams only as told by your health care provider. Check your wound every day for signs of infection. Check for: ?Redness, swelling, or pain. ?Fluid or blood. ?New warmth, a rash, or hardness at the wound site. ?Pus or a bad smell. General instructions Do not take baths, swim, or use a hot tub until your health care provider approves. Ask your healthcare provider if you may take showers. You may only be allowed to take sponge baths. Do not soak your wound in water. Eat a diet that includes protein, vitamin A, and vitamin C to help the wound heal. Drink enough fluid to keep your urine pale yellow. Keep all follow-up visits. This is important. Contact a health care provider if: You have a fever or chills. You have redness, swelling, or pain around your wound. You have fluid or blood coming from your wound. You have new warmth, a rash, or hardness around your wound. You notice that your wound becomes thick, raised, and darker in color after your sutures come out (scarring). Get help right away if: The edges of your wound start to separate, or the wound reopens. You notice pus or a bad smell coming from your wound. Summary The type of wound closure that your health care provider will use depends on the location, size, and depth of your wound. Options to close wounds include stitches (sutures), saira, skin glue (tissue adhesive), and adhesive strips. Your health care provider will use a wound closure method that helps you heal quickly and reduces the chances of infection or scarring. To help with healing, eat foods that are rich in protein, vitamin A, and vitamin C. Do not soak your wound in water. Do not take baths, shower, swim, or use a hot tub until your health care provider approves. This information is not intended to replace advice given to you by your health care provider. Make sure you discuss any questions you have with your health care provider. Document Revised: 08/02/2021 Document Reviewed: 08/02/2021 [employer] Patient Education 2022 [employer] 10/20/2023 11:39:06 Seizure, Adult, Pgxi-ku-Gnxa Seizure, Adult A seizure is a sudden burst of abnormal electrical and chemical activity in the brain. Seizures usually last from 30 seconds to 2 minutes. What are the causes? Common causes of this condition include: Fever or infection. Problems that affect the brain. These may include: ?A brain or head injury. ?Bleeding in the brain. ?A brain tumor. Low levels of blood sugar or salt. Kidney problems or liver problems. Conditions that are passed from parent to child (are inherited). Problems with a substance, such as: ?Having a reaction to a drug or a medicine. ?Stopping the use of a substance all of a sudden (withdrawal). A stroke. Disorders that affect how you develop. Sometimes, the cause may not be known. What increases the risk? Having someone in your family who has epilepsy. In this condition, seizures happen again and again over time. They have no clear cause. Having had a tonic clonic seizure before. This type of seizure causes you to: ?Tighten the muscles of the whole body. ?Lose consciousness. Having had a head injury or strokes before. Having had a lack of oxygen at . What are the signs or symptoms? There are many types of seizures. The symptoms vary depending on the type of seizure you have. Symptoms during a seizure Shaking that you cannot control (convulsions) with fast, jerky movements of muscles. Stiffness of the body. Breathing problems. Feeling mixed up (confused). Staring or not responding to sound or touch. Head nodding. Eyes that blink, flutter, or move fast. Drooling, grunting, or making clicking sounds with your mouth Losing control of when you pee or poop. Symptoms before a seizure Feeling afraid, nervous, or worried. Feeling like you may vomit. Feeling like: ?You are moving when you are not. ?Things around you are moving when they are not. Feeling like you saw or heard something before (kristel em). Odd tastes or smells. Changes in how you see. You may see flashing lights or spots. Symptoms after a seizure Feeling confused. Feeling sleepy. Headache. Sore muscles. How is this treated? If your seizure stops on its own, you will not need treatment. If your seizure lasts longer than 5 minutes, you will normally need treatment. Treatment may include: Medicines given through an IV tube. Avoiding things, such as medicines, that are known to cause your seizures. Medicines to prevent seizures. A device to prevent or control seizures. Surgery. A diet low in carbohydrates and high in fat (ketogenic diet). Follow these instructions at home: Medicines Take ykzb-pwr-pjrusop and prescription medicines only as told by your doctor. Avoid foods or drinks that may keep your medicine from working, such as alcohol. Activity Follow instructions about driving, swimming, or doing things that would be dangerous if you had another seizure. Wait until your doctor says it is safe for you to do these things. If you live in the [place] ask your local department of motor vehicles when you can drive. Get a lot of rest. Teaching others Teach friends and family what to do when you have a seizure. They should: ?Help you get down to the ground. ?Protect your head and body. ?Loosen any clothing around your neck. ?Turn you on your side. ?Know whether or not you need emergency care. ?Stay with you until you are better. Also, tell them what not to do if you have a seizure. Tell them: ?They should not hold you down. ?They should not put anything in your mouth. General instructions Avoid anything that gives you seizures. Keep a seizure diary. Write down: ?What you remember about each seizure. ?What you think caused each seizure. Keep all follow-up visits. Contact a doctor if: You have another seizure or seizures. Call the doctor each time you have a seizure. The pattern of your seizures changes. You keep having seizures with treatment. You have symptoms of being sick or having an infection. You are not able to take your medicine. Get help right away if: You have any of these problems: ?A seizure that lasts longer than 5 minutes. ?Many seizures in a row and you do not feel better between seizures. ?A seizure that makes it harder to breathe. ?A seizure and you can no longer speak or use part of your body. You do not wake up right after a seizure. You get hurt during a seizure. You feel confused or have pain right after a seizure. These symptoms may be an emergency. Get help right away. Call your local emergency services (911 int [place] Do not wait to see if the symptoms will go away. Do not drive yourself to the hospital. Summary A seizure is a sudden burst of abnormal electrical and chemical activity in the brain. Seizures normally last from 30 seconds to 2 minutes. Causes of seizures include illness, injury to the head, low levels of blood sugar or salt, and certain conditions. Most seizures will stop on their own in less than 5 minutes. Seizures that last longer than 5 minutes are a medical emergency and need treatment right away. Many medicines are used to treat seizures. Take dxau-jfo-xpwmkmn and prescription medicines only astold by your doctor. This information is not intended to replace advice given to you by your health care provider. Make sure you discuss any questions you have with your health care provider. Document Revised: 10/02/2020 Document Reviewed: 10/02/2020 [employer] Patient Education 2022 [employer] 10/20/2023 11:39:06 Head Injury, Adult, Tuft-uw-Zjwp Head Injury, Adult There are many types of head injuries. They can be as minor as a small bump. Some head injuries canbe worse. Worse injuries include: A strong hit to the head that shakes the brain back and forth, causing damage (concussion). A bruise (contusion) of the brain. This means there is bleeding in the brain that can cause swelling. A cracked skull (skull fracture). Bleeding in the brain that gathers, gets thick (makes a clot), and forms a bump (hematoma). Most problems from a head injury come in the first 24 hours. However, you may still have side effects up to 7 10 days after your injury. It is important to watch your condition for any changes. You may need to be watched in the emergency department or urgent care, or you may need to stay in the hospital. What are the causes? There are many possible causes of a head injury. A serious head injury may be caused by: A car accident. Bicycle or motorcycle accidents. Sports injuries. Falls. Being hit by an object. What are the signs or symptoms? Symptoms of a head injury include a bruise, bump, or bleeding where the injury happened. Other physical symptoms may include: Headache. Feeling like you may vomit (nauseous) or vomiting. Dizziness. Blurred or double vision. Being uncomfortable around bright lights or loud noises. Shaking movements that you cannot control (seizures). Feeling tired. Trouble being woken up. Fainting or loss of consciousness. Mental or emotional symptoms may include: Feeling grumpy or cranky. Confusion and memory problems. Having trouble paying attention or concentrating. Changes in eating or sleeping habits. Feeling worried or nervous (anxious). Feeling sad (depressed). How is this treated? Treatment for this condition depends on how severe the injury is and the type of injury you have. The main goal is to prevent problems and to allow the brain time to heal. Mild head injury If you have a mild head injury, you may be sent home, and treatment may include: Being watched. A responsible adult should stay with you for 24 hours after your injury and check onyou often. Physical rest. Brain rest. Pain medicines. Severe head injury If you have a severe head injury, treatment may include: Being watched closely. This includes staying in the hospital. Medicines to: ?Help with pain. ?Prevent seizures. ?Help with brain swelling. Protecting your airway and using a machine that helps you breathe (ventilator). Treatments to watch for and manage swelling inside the brain. Brain surgery. This may be needed to: ?Remove a collection of blood or blood clots. ?Stop the bleeding. ?Remove a part of the skull. This allows room for the brain to swell. Follow these instructions at home: Activity Rest. Avoid activities that are hard or tiring. Make sure you get enough sleep. Let your brain rest. Do this by limiting activities that need a lot of thought or attention, such as: ?Watching TV. ?Playing memory games and puzzles. ?Job-related work or homework. ?Working on the computer, social media, and texting. Avoid activities that could cause another head injury until your doctor says it is okay. This includes playing sports. Having another head injury, especially before the first one has healed, can be dangerous. Ask your doctor when it is safe for you to go back to your normal activities, such as work or school. Ask your doctor for a ovnq-gd-sdhv plan for slowly going back to your normal activities. Ask your doctor when you can drive, ride a bicycle, or use heavy machinery. Do not do these activities if you are dizzy. Lifestyle Do not drink alcohol until your doctor says it is okay. Do not use drugs. If it is harder than usual to remember things, write them down. If you are easily distracted, try to do one thing at a time. Talk with family members or close friends when making important decisions. Tell your friends, family, a trusted co-worker, and tipple worker about your injury, symptoms, and limits (restrictions). Have them watch for any problems that are new or getting worse. General instructions Take vmsm-usc-plahink and prescription medicines only as told by your doctor. Have someone stay with you for 24 hours after your head injury. This person should watch you for any changes in your symptoms and be ready to get help. Keep all follow-up visits as told by your doctor. This is important. How is this prevented? Work on your balance and strength. This can help you avoid falls. Wear a seat belt when you are in a moving vehicle. Wear a helmet when you: ?Ride a bicycle. ?Ski. ?Do any other sport or activity that has a risk of injury. If you drink alcohol: ?Limit how much you use to: ?0 1 drink a day for non women. ?0 2 drinks a day for men. ?Be aware of how much alcohol is in your drink. In the [place] one drink equals one 12 oz bottle of beer (355 mL), one 5 oz glass of wine (148 mL), or one 1 oz glass of hard liquor (44 mL). Make your home safer by: ?Getting rid of clutter from the floors and stairs. This includes things that can make you trip. ?Using grab bars in bathrooms and handrails by stairs. ?Placing non-slip mats on floors and in bathtubs. ?Putting more light in dim areas. Where to find more information Centers for Disease Control and Prevention: www.cdc.gov Get help right away if: You have: ?A very bad headache that is not helped by medicine. ?Trouble walking or weakness in your arms and legs. ?Clear or bloody fluid coming from your nose or ears. ?Changes in how you see (vision). ?A seizure. ?More confusion or more grumpy moods. Your symptoms get worse. You are sleepier than normal and have trouble staying awake. You lose your balance. The black centers of your eyes (pupils) change in size. Your speech is slurred. Your dizziness gets worse. You vomit. These symptoms may be an emergency. Do not wait to see if the symptoms will go away. Get medical help right away. Call your local emergency services (911 in the [place] Do not drive yourself to the hospital. Summary Head injuries can be as minor as a small bump. Some head injuries can be worse. Treatment for this condition depends on how severe the injury is and the type of injury you have. Have someone stay with you for 24 hours after your head injury. Ask your doctor when it is safe for you to go back to your normal activities, such as work or school. To prevent a head injury, wear a seat belt in a car, wear a helmet when you use a bicycle, limit your alcohol use, and make your home safer. This information is not intended to replace advice given to you by your health care provider. Make sure you discuss any questions you have with your health care provider. Document Revised: 02/07/2020 Document Reviewed: 02/07/2020 [employer] Patient Education 2022 [employer] Follow Up Care 10/20/2023 09:33:45 With:EDIL BRUSH Address: [address], [place] [address] [place] [address]- [phone] Business (2) When:10/23/2023 11:38:39 With:Eb Mcarthur Address: [address] [place] [address] [place] [address]- [facility] (1) When:5 to 7 days Comments:for staple removal [facility]07-12-2024 NoteED Patient Education Note Dermatology Sutures, [place], or Adhesive Wound Closure Wound closure refers to holding skin and underlying tissue together while it heals, such as after surgery or after an injury. Health care providers use stitches (sutures), saira, skin glue (tissue adhesive), and adhesive strips to close wounds. Your health care provider will use a wound closure method that helps you heal quickly and reduces the chances of infection or scarring. The type of wound closure depends on the location, size, and depth of your wound. More than one type of wound closure may be used on the same wound. In most cases, wounds are closed as soon as possible (primary skin closure). Sometimes, closure is delayed so the wound can be cleaned and then can heal naturally over weeks or months (delayed wound closure). This reduces the chance of infection. What are the different types of wound closure? Skin glue To use skin glue, your health care provider will hold the edges of the wound together and will paint the glue on the surface of your skin. You may need more than one layer of glue. Once the glue is dry, the wound may be covered with a bandage (dressing). This type of skin closure may be used for small wounds that are not deep (superficial wounds). It is often used for children and on facial wounds. Skin glue is less painful than other methods of wound closure, and it does not require medicine to numb the area (local anesthetic). This method also leaves nothing to be removed. Skin glue cannot be used for wounds that are deep, uneven, or bleeding. It is not used inside of a wound. Adhesive strips These strips are made of paper that is sticky (adhesive) and has many small holes in it. The stripsare applied across your wound edges like a regular bandage. Adhesive strips may be used to close very shallow wounds or surgical wounds. They may be used alongwith sutures to improve skin closure. Sutures Sutures come in many different materials, strengths, and sizes. They may break down as your wound heals (absorbable), or they may need to be removed (nonabsorbable). Your health care provider will sew your skin or the tissues under your skin together with sutures and a steel needle. Your skin edges may be closed in one long stitch or in separate stitches. Then the sutures will be tied and cut. Sutures can be used for all kinds of wounds. Absorbable sutures may be used to close tissues under the skin. Sutures can cause a skin reaction that can lead to infection. Saira To close a wound with saira, the edges of your skin on both sides of the wound will be brought close together. A staple will then be placed across the wound, and an instrument will secure the staple edges together. Saira are often used to close surgical incisions. They are faster to use than sutures, and they cause less skin reaction. [place] need to be removed using a tool that bends the saira away from your skin. Follow these instructions at home: Medicines ? Take dvaz-fmp-ulcwkqc and prescription medicines only as told by your health care provider. ? If you were prescribed an antibiotic medicine, take it as told by your health care provider. Do not stop taking the antibiotic even if you start to feel better. Wound care ? Follow instructions from your health care provider about how to take care of your wound and dressing. ? Wash your hands with soap and water for at least 20 seconds before and after you change your dressing. If soap and water are not available, use hand plaster form maker. ? Do not try to remove your wound closures unless your health care provider tells you to do that. You may need a follow-up visit with your health care provider to remove your closures. ? Wound closures may stay in place for 2 weeks or longer. ? Absorbable sutures may dissolve after a few days or weeks. ? If adhesive strip edges start to loosen and curl up, you may trim the loose edges. ? Do not pick at your wound. Picking can cause an infection or cause your wound to reopen. ? Apply ointments or creams only as told by your health care provider. ? Check your wound every day for signs of infection. Check for: ? Redness, swelling, or pain. ? Fluid or blood. ? New warmth, a rash, or hardness at the wound site. ? Pus or a bad smell. General instructions ? Do not take baths, swim, or use a hot tub until your health care provider approves. Ask your health care provider if you may take showers. You may only be allowed to take sponge baths. ? Do not soak your wound in water. ? Eat a diet that includes protein, vitamin A, and vitamin C to help the wound heal. ? Drink enough fluid to keep your urine pale yellow. ? Keep all follow-up visits. This is important. Contact a health care provider if: ? You have a fever or chills. ? You have redness, swelling, or pain around your wound. ? You have fluid or blood coming from your wound. ? You have new warm (more content not included)...[facility] 10-20-2023 NoteED Patient Education Note Dermatology Sutures, [place], or Adhesive Wound Closure Wound closure refers to holding skin and underlying tissue together while it heals, such as after surgery or after an injury. Health care providers use stitches (sutures), saira, skin glue (tissue adhesive), and adhesive strips to close wounds. Your health care provider will use a wound closure method that helps you heal quickly and reduces the chances of infection or scarring. The type of wound closure depends on the location, size, and depth of your wound. More than one type of wound closure may be used on the same wound. In most cases, wounds are closed as soon as possible (primary skin closure). Sometimes, closure is delayed so the wound can be cleaned and then can heal naturally over weeks or months (delayed wound closure). This reduces the chance of infection. What are the different types of wound closure? Skin glue To use skin glue, your health care provider will hold the edges of the wound together and will paint the glue on the surface of your skin. You may need more than one layer of glue. Once the glue is dry, the wound may be covered with a bandage (dressing). This type of skin closure may be used for small wounds that are not deep (superficial wounds). It is often used for children and on facial wounds. Skin glue is less painful than other methods of wound closure, and it does not require medicine to numb the area (local anesthetic). This method also leaves nothing to be removed. Skin glue cannot be used for wounds that are deep, uneven, or bleeding. It is not used inside of a wound. Adhesive strips These strips are made of paper that is sticky (adhesive) and has many small holes in it. The stripsare applied across your wound edges like a regular bandage. Adhesive strips may be used to close very shallow wounds or surgical wounds. They may be used alongwith sutures to improve skin closure. Sutures Sutures come in many different materials, strengths, and sizes. They may break down as your wound heals (absorbable), or they may need to be removed (nonabsorbable). Your health care provider will sew your skin or the tissues under your skin together with sutures and a steel needle. Your skin edges may be closed in one long stitch or in separate stitches. Then the sutures will be tied and cut. Sutures can be used for all kinds of wounds. Absorbable sutures may be used to close tissues under the skin. Sutures can cause a skin reaction that can lead to infection. [place] To close a wound with saira, the edges of your skin on both sides of the wound will be brought close together. A staple will then be placed across the wound, and an instrument will secure the staple edges together. Saira are often used to close surgical incisions. They are faster to use than sutures, and they cause less skin reaction. [place] need to be removed using a tool that bends the saira away from your skin. Follow these instructions at home: Medicines ? Take sepa-uhq-xvzspyg and prescription medicines only as told by your health care provider. ? If you were prescribed an antibiotic medicine, take it as told by your health care provider. Do not stop taking the antibiotic even if you start to feel better. Wound care ? Follow instructions from your health care provider about how to take care of your wound and dressing. ? Wash your hands with soap and water for at least 20 seconds before and after you change your dressing. If soap and water are not available, use hand plaster form maker. ? Do not try to remove your wound closures unless your health care provider tells you to do that. You may need a follow-up visit with your health care provider to remove your closures. ? Wound closures may stay in place for 2 weeks or longer. ? Absorbable sutures may dissolve after a few days or weeks. ? If adhesive strip edges start to loosen and curl up, you may trim the loose edges. ? Do not pick at your wound. Picking can cause an infection or cause your wound to reopen. ? Apply ointments or creams only as told by your health care provider. ? Check your wound every day for signs of infection. Check for: ? Redness, swelling, or pain. ? Fluid or blood. ? New warmth, a rash, or hardness at the wound site. ? Pus or a bad smell. General instructions ? Do not take baths, swim, or use a hot tub until your health care provider approves. Ask your health care provider if you may take showers. You may only be allowed to take sponge baths. ? Do not soak your wound in water. ? Eat a diet that includes protein, vitamin A, and vitamin C to help the wound heal. ? Drink enough fluid to keep your urine pale yellow. ? Keep all follow-up visits. This is important. Contact a health care provider if: ? You have a fever or chills. ? You have redness, swelling, or pain around your wound. ? You have fluid or blood coming from your wound. ? You have new warm (more content not included)...[facility] 10-20-2023 NoteED Patient Education Note Dermatology Sutures, [place], or Adhesive Wound Closure Wound closure refers to holding skin and underlying tissue together while it heals, such as after surgery or after an injury. Health care providers use stitches (sutures), saira, skin glue (tissue adhesive), and adhesive strips to close wounds. Your health care provider will use a wound closure method that helps you heal quickly and reduces the chances of infection or scarring. The type of wound closure depends on the location, size, and depth of your wound. More than one type of wound closure may be used on the same wound. In most cases, wounds are closed as soon as possible (primary skin closure). Sometimes, closure is delayed so the wound can be cleaned and then can heal naturally over weeks or months (delayed wound closure). This reduces the chance of infection. What are the different types of wound closure? Skin glue To use skin glue, your health care provider will hold the edges of the wound together and will paint the glue on the surface of your skin. You may need more than one layer of glue. Once the glue is dry, the wound may be covered with a bandage (dressing). This type of skin closure may be used for small wounds that are not deep (superficial wounds). It is often used for children and on facial wounds. Skin glue is less painful than other methods of wound closure, and it does not require medicine to numb the area (local anesthetic). This method also leaves nothing to be removed. Skin glue cannot be used for wounds that are deep, uneven, or bleeding. It is not used inside of a wound. Adhesive strips These strips are made of paper that is sticky (adhesive) and has many small holes in it. The stripsare applied across your wound edges like a regular bandage. Adhesive strips may be used to close very shallow wounds or surgical wounds. They may be used alongwith sutures to improve skin closure. Sutures Sutures come in many different materials, strengths, and sizes. They may break down as your wound heals (absorbable), or they may need to be removed (nonabsorbable). Your health care provider will sew your skin or the tissues under your skin together with sutures and a steel needle. Your skin edges may be closed in one long stitch or in separate stitches. Then the sutures will be tied and cut. Sutures can be used for all kinds of wounds. Absorbable sutures may be used to close tissues under the skin. Sutures can cause a skin reaction that can lead to infection. [place] To close a wound with saira, the edges of your skin on both sides of the wound will be brought close together. A staple will then be placed across the wound, and an instrument will secure the staple edges together. Saira are often used to close surgical incisions. They are faster to use than sutures, and they cause less skin reaction. Saira need to be removed using a tool that bends the saira away from your skin. Follow these instructions at home: Medicines ? Take vlmm-mrc-hoxjuri and prescription medicines only as told by your health care provider. ? If you were prescribed an antibiotic medicine, take it as told by your health care provider. Do not stop taking the antibiotic even if you start to feel better. Wound care ? Follow instructions from your health care provider about how to take care of your wound and dressing. ? Wash your hands with soap and water for at least 20 seconds before and after you change your dressing. If soap and water are not available, use hand plaster form maker. ? Do not try to remove your wound closures unless your health care provider tells you to do that. You may need a follow-up visit with your health care provider to remove your closures. ? Wound closures may stay in place for 2 weeks or longer. ? Absorbable sutures may dissolve after a few days or weeks. ? If adhesive strip edges start to loosen and curl up, you may trim the loose edges. ? Do not pick at your wound. Picking can cause an infection or cause your wound to reopen. ? Apply ointments or creams only as told by your health care provider. ? Check your wound every day for signs of infection. Check for: ? Redness, swelling, or pain. ? Fluid or blood. ? New warmth, a rash, or hardness at the wound site. ? Pus or a bad smell. General instructions ? Do not take baths, swim, or use a hot tub until your health care provider approves. Ask your health care provider if you may take showers. You may only be allowed to take sponge baths. ? Do not soak your wound in water. ? Eat a diet that includes protein, vitamin A, and vitamin C to help the wound heal. ? Drink enough fluid to keep your urine pale yellow. ? Keep all follow-up visits. This is important. Contact a health care provider if: ? You have a fever or chills. ? You have redness, swelling, or pain around your wound. ? You have fluid or blood coming from your wound. ? You have new warm (more content not included)...[facility] 02-27-2023 Hospital Discharge instructions Patient Education 02/27/2023 18:44:14 Contusion Contusion A contusion is a deep bruise. Contusions are the result of a blunt injury to tissues and muscle fibers under the skin. The injury causes bleeding under the skin. The skin overlying the contusion may turn blue, purple, or yellow. Minor injuries will give you a painless contusion, but more severe injuries cause contusions that may stay painful and swollen for a few weeks. Follow these instructions at home: Pay attention to any changes in your symptoms. Let your health care provider know about them. Take these actions to relieve your pain. Managing pain, stiffness, and swelling Use resting, icing, applying pressure (compression), and raising (elevating) the injured area. Thisis often called the RICE strategy. ?Rest the injured area. Return to your normal activities as told by your health care provider. Ask your health care provider what activities are safe for you. ?If directed, put ice on the injured area: ?Put ice in a plastic bag. ?Place a towel between your skin and the bag. ?Leave the ice on for 20 minutes, 2 3 times per day. ?If directed, apply light compression to the injured area using an elastic bandage. Make sure the bandage is not wrapped too tightly. Remove and reapply the bandage as directed by your health care provider. ?If possible, raise (elevate) the injured area above the level of your heart while you are sitting or lying down. General instructions Take ptrf-laa-dzhazkr and prescription medicines only as told by your health care provider. Keep all follow-up visits as told by your health care provider. This is important. Contact a health care provider if: Your symptoms do not improve after several days of treatment. Your symptoms get worse. You have difficulty moving the injured area. Get help right away if: You have severe pain. You have numbness in a hand or foot. Your hand or foot turns pale or cold. Summary A contusion is a deep bruise. Contusions are the result of a blunt injury to tissues and muscle fibers under the skin. It is treated with rest, ice, compression, and elevation. You may be given egiw-hth-mxtdchw medicines for pain. Contact a health care provider if your symptoms do not improve, or get worse. Get help right away if you have severe pain, have numbness, or the area turns pale or cold. This information is not intended to replace advice given to you by your health care provider. Make sure you discuss any questions you have with your health care provider. Document Revised: 02/08/2022 Document Reviewed: 01/20/2022 [employer] Patient Education 2022 [employer] 02/27/2023 18:44:05 Suture Removal, Care After Suture Removal, Care After The following information offers guidance on how to care for yourself after your procedure. Your health care provider may also give you more specific instructions. If you have problems or questions, contact your health care provider. What can I expect after the procedure? After your stitches (sutures) are removed, it is common to have: Some discomfort and swelling in the area. Slight redness in the area. Follow these instructions at home: If you have a dressing: Wash your hands with soap and water for at least 20 seconds before and after you change your bandage (dressing). If soap and water are not available, use hand plaster form maker. Change your dressing as told by your health care provider. If your dressing becomes wet or dirty, or develops a bad smell, change it as soon as possible. If your dressing sticks to your skin, pour warm, clean water over it until it loosens and can be removed without pulling apart the wound edges. Pat the area dry with a soft, clean towel. Do not rub the wound because that may cause bleeding. Wound care Check your wound every day for signs of infection. Check for: ?More redness, swelling, or pain. ?Fluid or blood. ?New warmth, a rash, or hardness at the wound site. ? Pus or a bad smell. Wash your hands with soap and water for at least 20 seconds before and after touching your wound. If soap and water are not available, use hand plaster form maker. Keep the wound area dry and clean. Clean and pat the wound dry as told by your health care provider. Apply cream or ointment only as told by your health care provider. If skin glue or adhesive strips were applied after sutures were removed, leave these closures in place. They may need to stay in place for 2 weeks or longer. If adhesive strip edges start to loosen and curl up, you may trim the loose edges. Do not remove adhesive strips completely unless your health care provider tells you to do that. Continue to protect the wound from injury. Do not pick at your wound. Picking can cause an infection. Bathing Do not take baths, swim, or use a hot tub until your health care provider approves. Ask your healthcare provider if you may take showers. Follow these steps for showering: ?If you have a dressing, remove it before getting into the shower. ?In the shower, allow soapy water to get on the wound. Avoid scrubbing the wound. ?When you get out of the shower, dry the wound by patting it with a clean towel. ?Reapply a dressing over the wound, if needed. Scar care When your wound has completely healed, help decrease the size of your scar by: Wearing sunscreen over the scar or covering it with clothing when you are outside. New scars get sunburned easily, which can make scarring worse. Gently massaging the scarred area. This can decrease scar thickness. General instructions Take bogm-bdj-yzpngvp and prescription medicines only as told by your health care provider. Keep all follow-up visits. This is important. Contact a health care provider if: You have more redness, swelling, or pain around your wound. You have fluid or blood coming from your wound. You have new warmth, a rash, or hardness at the wound site. You have pus or a bad smell coming from your wound. Your wound opens up. Get help right away if: You have a fever or chills. You have red streaks coming from your wound. Summary After your sutures are removed, it is common to have some discomfort and swelling in the area. Wash your hands with soap and water before you change your bandage (dressing). Keep the wound area dry and clean. Do not take baths, swim, or use a hot tub until your health careprovider approves. This information is not intended to replace advice given to you by your health care provider. Make sure you discuss any questions you have with your health care provider. Document Revised: 07/20/2021 Document Reviewed: 07/20/2021 [employer] Patient Education 2022 [employer] [facility] 10-01-2022 Hospital Discharge instructions Patient Education 01/08/2022 17:30:29 Sutures, Saira, or Adhesive Wound Closure, Gmuw-po-Cvjx Sutures, Saira, or Adhesive Wound Closure Doctors use stitches (sutures), saira, and glue (skin adhesives) to hold your skin together whileit heals (wound closure). What your doctor uses depends on your wound. In most cases, your wound will be closed right away (primary skin closure). Sometimes it may be closed later so that it can be cleaned and then heal naturally (delayed wound closure). What are the types of wound closure? Adhesive glue To use adhesive glue, your doctor: ?Holds the edges of the wound together. ?Paints the glue onto your skin. You may need more than one layer. ?Covers your wound with a bandage (dressing) after the glue is dry. Adhesive glue may be used for: ?Wounds that are not deep (superficial wounds). ?Wounds on the face. ?Children's wounds. Adhesive glue is not used inside of wounds, or on wounds that are: ?Deep. ?Uneven. ?Bleeding. Some benefits of adhesive glue are: ?It leaves nothing that needs to be removed. ?You do not need medicine to numb the area. ?You have less pain than with other types of closure. Adhesive strips Adhesive strips are: Made of paper that is sticky (adhesive) and has many small holes it in (porous). Placed across your wound edges, like a normal bandage. Used to close very shallow wounds. Sometimes used with sutures to help improve closure. Sutures Sutures come in many different materials, strengths, and sizes. Some sutures break down as your wound heals (absorbable). Other sutures need to be removed (nonabsorbable). To use sutures, your doctor: Sews your skin together with sutures and a needle. May use one long (continuous) stitch or separate stitches. Ties and cuts the sutures at the end. Sutures can be used for all types of wounds, including under the skin. They can cause a skin reaction that can lead to infection. Saira [place] are often used to close surgical cuts (incisions). To use saira, your doctor: Holds the edges of your wound close together. Places a staple across the wound. Uses a tool to secure the staple to the skin. Repeats this with as many saira as needed. [place] are faster to use than sutures, and they cause less reaction from your skin. Saira need to be removed using a tool that bends the saira away from your skin. Follow these instructions at home: Medicines Take govj-ekn-vtafckl and prescription medicines only as told by your doctor. If you were prescribed an antibiotic medicine, take it as told by your doctor. Do not stop taking the antibiotic even if you start to feel better. Wound care Follow instructions from your doctor about how to take care of your wound and bandage. Wash your hands with soap and water before and after touching your wound or bandage. If you cannot use soap and water, use hand plaster form maker. Do not try to remove your wound closures unless your doctor tells you to do that. You may need a follow-up visit for your doctor to remove your closures. ?Closures may stay in place for 2 weeks or longer. ?Absorbable sutures may break down after a few days or weeks. ?If adhesive strip edges start to loosen and curl up, you may trim the loose edges. Do not pick at your wound. Picking can cause an infection. Apply ointments or creams only as told by your doctor. Check your wound every day for signs of infection. Check for: ?Redness, swelling, or pain. ?Fluid or blood. ?Warmth. ?Pus or a bad smell. General instructions Do not take baths, swim, or use a hot tub until your doctor approves. Ask your doctor if you may take showers. You may only be allowed to take sponge baths. Do not soak your wound in water. Keep all follow-up visits as told by your doctor. This is important. Contact a doctor if you: Have any of the following: ?A fever. ?Chills. ?Redness, swelling, or pain around your wound. ?Fluid or blood coming from your wound. ?Pus or a bad smell coming from your wound. Notice that your wound feels warm to the touch. Notice that the edges of your wound start to separate after your sutures come out. Notice that your wound becomes thick, raised, and darker in color after your sutures come out (scarring). Summary What your doctor uses to hold your skin together while it heals (wound closure) depends on your wound. Your doctor may use stitches (sutures), saira, and glue (skin adhesives). Do not try to remove your wound closures unless your doctor tells you to do that. Do not soak your wound in water. This information is not intended to replace advice given to you by your health care provider. Make sure you discuss any questions you have with your health care provider. Document Released: 01/22/2010 Document Revised: 03/09/2018 Document Reviewed: 02/01/2018 [employer] Patient Education 2020 [employer] 01/08/2022 17:30:26 Head Injury, Adult, Wjrb-wi-Vwfe Head Injury, Adult There are many types of head injuries. They can be as minor as a bump. Some head injuries can be worse. Worse injuries include: A strong hit to the head that shakes the brain back and forth causing damage (concussion). A bruise (contusion) of the brain. This means there is bleeding in the brain that can cause swelling. A cracked skull (skull fracture). Bleeding in the brain that gathers, gets thick (makes a clot), and forms a bump (hematoma). Most problems from a head injury come in the first 24 hours. However, you may still have side effects up to 7 10 days after your injury. It is important to watch your condition for any changes. You may need to be watched in the emergency department or urgent care, or you may need to stay in the hospital. What are the causes? There are many possible causes of a head injury. A serious head injury may be caused by: A car accident. Bicycle or motorcycle accidents. Sports injuries. Falls. What are the signs or symptoms? Symptoms of a head injury include a bruise, bump, or bleeding where the injury happened. Other physical symptoms may include: Headache. Feeling sick to your stomach (nauseous) or vomiting. Dizziness. Feeling tired. Being uncomfortable around bright lights or loud noises. Shaking movements that you cannot control (seizures). Trouble being woken up. Passing out (fainting). Mental or emotional symptoms may include: Feeling grumpy or cranky. Confusion and memory problems. Having trouble paying attention or concentrating. Changes in eating or sleeping habits. Feeling worried or nervous (anxious). Feeling sad (depressed). How is this treated? Treatment for this condition depends on how severe the injury is and the type of injury you have. The main goal is to prevent complications and to allow the brain time to heal. Mild head injury If you have a mild head injury, you may be sent home and treatment may include: Being watched. A responsible adult should stay with you for 24 hours after your injury and check onyou often. Physical rest. Brain rest. Pain medicines. Severe head injury If you have a severe head injury, treatment may include: Being watched closely. This includes hospitalization with frequent physical exams. Medicines to: ?Help with pain. ?Prevent shaking movements that you cannot control. ?Help with brain swelling. Using a machine that helps you breathe (ventilator). Treatments to manage the swelling inside the brain. Brain surgery. This may be needed to: ?Remove a blood clot. ?Stop the bleeding. ?Remove a part of the skull. This allows room for the brain to swell. Follow these instructions at home: Activity Rest. Avoid activities that are hard or tiring. Make sure you get enough sleep. Limit activities that need a lot of thought or attention, such as: ?Watching TV. ?Playing memory games and puzzles. ?Job-related work or homework. ?Working on the computer, social media, and texting. Avoid activities that could cause another head injury until your doctor says it is okay. This includes playing sports. Having another head injury, especially before the first one has healed, can be dangerous. Ask your doctor when it is safe for you to go back to your normal activities, such as work or school. Ask your doctor for a crma-nc-wpto plan for slowly going back to your normal activities. Ask your doctor when you can drive, ride a bicycle, or use heavy machinery. Do not do these activities if you are dizzy. Lifestyle Do not drink alcohol until your doctor says it is okay. Do not use drugs. If it is harder than usual to remember things, write them down. If you are easily distracted, try to do one thing at a time. Talk with family members or close friends when making important decisions. Tell your friends, family, a trusted coworker, and tipple worker about your injury, symptoms, and limits (restrictions). Have them watch for any problems that are new or getting worse. General instructions Take emua-uxd-dbtzypb and prescription medicines only as told by your doctor. Have someone stay with you for 24 hours after your head injury. This person should watch you for any changes in your symptoms and be ready to get help. Keep all follow-up visits as told by your doctor. This is important. How is this prevented? Work on your balance and strength. This can help you avoid falls. Wear a seatbelt when you are in a moving vehicle. Wear a helmet when you: ?Ride a bicycle. ?Ski. ?Do any other sport or activity that has a risk of injury. If you drink alcohol: ?Limit how much you use to: ?0 1 drink a day for women. ?0 2 drinks a day for men. ?Be aware of how much alcohol is in your drink. In the [place] one drink equals one 12 oz bottle of beer (355 mL), one 5 oz glass of wine (148 mL), or one 1 oz glass of hard liquor (44 mL). Make your home safer by: ?Getting rid of clutter from the floors and stairs. This includes things that can make you trip. ?Using grab bars in bathrooms and handrails by stairs. ?Placing non-slip mats on floors and in bathtubs. ?Putting more light in dim areas. Get help right away if: You have: ?A very bad headache that is not helped by medicine. ?Trouble walking or weakness in your arms and legs. ?Clear or bloody fluid coming from your nose or ears. ?Changes in how you see (vision). ?Shaking movements that you cannot control. You lose your balance. You vomit. The black centers of your eyes (pupils) change in size. Your speech is slurred. Your dizziness gets worse. You pass out. You are sleepier than normal and have trouble staying awake. Your symptoms get worse. These symptoms may be an emergency. Do not wait to see if the symptoms will go away. Get medical help right away. Call your local emergency services (911 in the [place] Do not drive yourself to the hospital. Summary There are many types of head injuries. They can be as minor as a bump. Some head injuries can be worse Treatment for this condition depends on how severe the injury is and the type of injury you have. Ask your doctor when it is safe for you to go back to your normal activities, such as work or school. To prevent a head injury, wear a seat belt in a car, wear a helmet when you use a a bicycle, limit your alcohol use, and make your home safer. This information is not intended to replace advice given to you by your health care provider. Make sure you discuss any questions you have with your health care provider. Document Released: 03/09/2009 Document Revised: 07/18/2019 Document Reviewed: 04/19/2019 [employer] Patient Education 2020 [employer] Follow Up Care 01/08/2022 15:32:52 With:Blue MCMAHON DO, TERRENCE Schulz Address: [address] [place], [place] [address]STE[facility] [address]- When:01/11/2022 [facility]10-01-2022 Evaluation + Plan noteExtracted from: Title:ED Note Author:Sherry PINEDO, Chrissy Humphries ate:01/08/22 1. Syncope and collapse (R55 : Syncope and collapse) 2. Laceration of head (S01.91XA: Laceration without foreign body of unspecified part of head, initial encounter) Orders: PAC Solution, 1 EA, Soln-Top, TransDermal, Once, Stop date 01/08/22 17:05:00 EDT, STAT, Start date 01/08/22 17:05:00 EDT Automated Diff Basic Metabolic Panel CBC w/ Auto Diff CT Head or Brain w/o Contrast CT Spine Cervical w/o Contrast ED Cardiac Monitoring eGFR Extra SST Tube Hepatic Function Panel Phenytoin Level Total PT & PTT Troponin [facility]06-30-2022 NoteHistory of Present Illness: History Present Illness: Reason for surgery: vns generator change HPI: h/o medically intractable seizure with improvement with VNS. now needs generator change Allergies: Allergies: No Known Allergies: Home Medication Review: Home Medications Reviewed: yes Impression/Procedure: Impression and Planned Procedure: VNS generator replacement ERAS (Enhanced Recovery After Surgery): ERAS Patient: no Vital Signs: Temperature C: 36.6 degrees C Temperature F: 97.8 degrees F Heart Rate: 68 beats per minute Respiratory Rate: 16 breath per minute Blood Pressure Systolic: 116 mm/Hg Blood Pressure Diastolic: 70 mm/Hg Physical Exam by System: Constitutional: Well developed, awake/alert/oriented x3, no distress, alert and cooperative, Eyes: PERRL, EOMI, clear sclera Head/Neck: Neck supple, no apparent injury, left neck scar well healed Respiratory/Thorax: Patent airways, normal breath sounds with good chest expansion, thorax symmetric, left chest VNS with well healed scar Cardiovascular: Regular, rate and rhythm, Skin: Warm and dry, no lesions, no rashes Consent: COVID-19 Consent: COVID-19 Risk ConsentSurgeon has reviewed urbano risks related to the risk of florentino COVID-19 and if they contract COVID-19 what the risks are. Electronic Signatures: Alice Herndon) (Signed 07-Oct-2021 08:40) Authored: History of Present Illness, Allergies, Home Medication Review, Impression/Procedure, ERAS, Physical Exam, Consent, Note Completion Last Updated: 07-Oct-2021 08:40 by Alice Herndon)[facility]06-30-2022 NotePROCEDURE DETAILS Preoperative Diagnosis: 1. medically intractable seizure, G40.219 2. s/p VNS, Z96.89 Postoperative Diagnosis: 1. medically intractable seizure, G40.219 2. s/p VNS, Z96.89 Surgeon: Alice Herndon Resident/Fellow/Other Market Risk Manager: None of these were associated with this case Procedure: 1. VAGUS NERVE STIMULATOR GENERATOR CHANGE, TimePadONICS 106, CPT 63435 2. Intraoperative monitoring, three variables, first hour, CPT 21747 Anesthesia: Abdirahman, Local MAC Estimated Blood Loss: 1cc Findings: normal VNS, exchanged Specimens(s) Collected: no, Operative Report: INDICATIONS: HO medically intractable seizures with benefit from VNS and desire to change battery to maintain improved seizure control. We discussed the risks and benefits to include, but not be limited to, bleeding; infection; damage to surrounding structures including nerves, blood vessels, muscle and the existing neuro-stimulator array; medical complications; and risks of anesthesia. Their questions are answered and they sign written consent. DESCRIPTION OF PROCEDURE: The patient was taken to the operating room and placed in the supine position on the operating room table. A time out procedure was performed confirming patient and site. Following satisfactory induction of local MAC sedation, a soft shoulder roll was placed to extend the upper chest and neck and the head rested on a foam doughnut. The prior incision site was injected with 1 % lidocaine with epinephrine 1: 100,000. The area was prepared with chlorhexidine and draped as a sterile field. The Generator was interrogated and turned off if still active. The incision was opened with a 15 blade. Blunt and sharp dissection was utilized to expose the old generator. The capsule on the generator was incised and the device removed from the pocket and detached from the existing neuro-stimulator array. Generator Removed: Storm Players Model 106 SN [id number] Generator Placed: [employer] Players Model 106, SN [id number] The device was interrogated with the successful ability to transmit a 1 mA current. Impedance noted as 1651, 1637 ohms. Heart rate tracking was detected at sensitivity level 1, HR 73. Heart rate tracking was left off, for later outpatient programming. The device was programmed with patient specific information and secured in the pocket. The patient settings were programmed includin.75 mA output current 25 Hz signal frequency 250 mSec pulse width 60 Sec Signal on time 1.1 Min Signal off time Magnet parameters: 3.0 mA output current 500 m secPulse width 60 sec Signal On Time The subcutaneous tissues were closed with vicryl and the skin with 5-0 fast-absorbing gut. Mastisol and steri-strips applied along with a telfa island dressing. The patient tolerated this well. The patient was then turned back to Anesthesia and returned to the recovery room in satisfactory condition. Sponge, needle, instrument counts were reported as correct. Estimated blood loss was minimal. I was present and participated in all aspects of procedure. Note Recipients: EDIL BRUSH Attestation: Note Completion: Attending AttestationI performed the procedure without a resident Electronic Signatures: Alice Herndon) (Signed 07-Oct-2021 09:23) Authored: Post-Operative Note, Chart Review, Note Completion Last Updated: 07-Oct-2021:23 by Alice Herndon)[facility]03-08-2022 Chief complaint Narrative - Reported* An interactive audio and video telecommunication system which permits real time communications between the patient (at the originating site) and provider (at the distant site) was utilized to providethis telehealth service. * Verbal consent was requested and obtained from VAMSI JUAREZ on this date, 06/15/2021 03:00 PM ,for a telehealth visit. * [facility] [address] Work Phone: [phone] History of Present illness Narrative* History of medically intractable seizures and epilepsy since the age of 11. VNS was initially placed in 1999. * Interval History (2018): * The patient needs a battery change in late spring/early summer. The battery was last replaced in November 2018. The VNS has controlled his seizures well. He currently at 25% battery life. * He has no new changes to his medical history. He is not receiving anticoagulation therapy. * No swallowing, breathing, laryngospasm, fever, chills, nausea or vomiting. * ROS performed. All other systems are reviewed and are negative for complaint except as noted in HPI. 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) documented in this encounter [facility] HealthcareEvaluation note* Diagnosis 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) documented in this encounter [facility] HealthcareEvaluation noteNo assessment information availableWSheltering [facility] Work Phone: Evaluation note* Diagnosis Intractable epilepsy with complex partial seizures (CMS/HCC)- Primary Focal epilepsy with impairment of consciousness, intractable (CMS/HCC)- Primary Localization-related (focal) (partial) epilepsy and epileptic syndromes with simple partial seizures, with intractable epilepsy DOUG (obstructive sleep apnea) Obstructive sleep apnea (adult) (pediatric) Osteopenia of neck of femur, unspecified laterality Status post VNS (vagus nerve stimulator) placement Other postprocedural status Other osteoporosis, unspecified pathological fracture presence (CMS/HCC) Drug-induced osteoporosis (CMS/HCC) Other osteoporosis Focal epilepsy with impairment of consciousness, intractable (CMS/HCC)- Primary Localization-related (focal) (partial) epilepsy and epileptic syndromes with simple partial seizures, with intractable epilepsy Status post VNS (vagus nerve stimulator) placement Other postprocedural status DOUG (obstructive sleep apnea) Obstructive sleep apnea (adult) (pediatric) Osteopenia of neck of femur, unspecified laterality Other osteoporosis, unspecified pathological fracture presence (CMS/HCC) Drug-induced osteoporosis (CMS/HCC) Other osteoporosis documented in this encounter [facility] HealthcareEvaluation note* Diagnosis Intractable epilepsy with complex partial seizures (CMS/HCC)- Primary Focal epilepsy with impairment of consciousness, intractable (CMS/HCC)- Primary Localization-related (focal) (partial) epilepsy and epileptic syndromes with simple partial seizures, with intractable epilepsy DOUG (obstructive sleep apnea) Obstructive sleep apnea (adult) (pediatric) Osteopenia of neck of femur, unspecified laterality Status post VNS (vagus nerve stimulator) placement Other postprocedural status Other osteoporosis, unspecified pathological fracture presence (CMS/HCC) Drug-induced osteoporosis (CMS/HCC) Other osteoporosis Focal epilepsy with impairment of consciousness, intractable (CMS/HCC)- Primary Localization-related (focal) (partial) epilepsy and epileptic syndromes with simple partial seizures, with intractable epilepsy Status post VNS (vagus nerve stimulator) placement Other postprocedural status DOUG (obstructive sleep apnea) Obstructive sleep apnea (adult) (pediatric) Osteopenia of neck of femur, unspecified laterality Other osteoporosis, unspecified pathological fracture presence (CMS/HCC) Drug-induced osteoporosis (CMS/HCC) Other osteoporosis 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) documented in this encounter [facility]* Diagnosis Intractable epilepsy with complex partial seizures (CMS/HCC)- Primary Focal epilepsy with impairment of consciousness, intractable (CMS/HCC)- Primary Localization-related (focal) (partial) epilepsy and epileptic syndromes with simple partial seizures, with intractable epilepsy DOUG (obstructive sleep apnea) Obstructive sleep apnea (adult) (pediatric) Osteopenia of neck of femur, unspecified laterality Status post VNS (vagus nerve stimulator) placement Other postprocedural status Other osteoporosis, unspecified pathological fracture presence (CMS/HCC) Drug-induced osteoporosis (CMS/HCC) Other osteoporosis Focal epilepsy with impairment of consciousness, intractable (CMS/HCC)- Primary Localization-related (focal) (partial) epilepsy and epileptic syndromes with simple partial seizures, with intractable epilepsy Status post VNS (vagus nerve stimulator) placement Other postprocedural status DOUG (obstructive sleep apnea) Obstructive sleep apnea (adult) (pediatric) Osteopenia of neck of femur, unspecified laterality Other osteoporosis, unspecified pathological fracture presence (CMS/HCC) Drug-induced osteoporosis (CMS/HCC) Other osteoporosis 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) documented in this encounter [facility]* Diagnosis Intractable epilepsy with complex partial seizures (CMS/HCC)- Primary Focal epilepsy with impairment of consciousness, intractable (CMS/HCC)- Primary Localization-related (focal) (partial) epilepsy and epileptic syndromes with simple partial seizures, with intractable epilepsy DOUG (obstructive sleep apnea) Obstructive sleep apnea (adult) (pediatric) Osteopenia of neck of femur, unspecified laterality Status post VNS (vagus nerve stimulator) placement Other postprocedural status Other osteoporosis, unspecified pathological fracture presence (CMS/HCC) Drug-induced osteoporosis (CMS/HCC) Other osteoporosis Focal epilepsy with impairment of consciousness, intractable (CMS/HCC)- Primary Localization-related (focal) (partial) epilepsy and epileptic syndromes with simple partial seizures, with intractable epilepsy Status post VNS (vagus nerve stimulator) placement Other postprocedural status DOUG (obstructive sleep apnea) Obstructive sleep apnea (adult) (pediatric) Osteopenia of neck of femur, unspecified laterality Other osteoporosis, unspecified pathological fracture presence (CMS/HCC) Drug-induced osteoporosis (CMS/HCC) Other osteoporosis Focal epilepsy with impairment of consciousness, intractable (CMS/HCC)- Primary Localization-related (focal) (partial) epilepsy and epileptic syndromes with simple partial seizures, with intractable epilepsy Status post VNS (vagus nerve stimulator) placement Other postprocedural status DOUG (obstructive sleep apnea) Obstructive sleep apnea (adult) (pediatric) Osteopenia of multiple sites documented in this encounter [facility] HealthcareEvaluation note* Diagnosis Intractable epilepsy with complex partial seizures- Primary Focal epilepsy with impairment of consciousness, intractable (CMS/HCC)- Primary Localization-related (focal) (partial) epilepsy and epileptic syndromes with simple partial seizures, with intractable epilepsy DOUG (obstructive sleep apnea) Obstructive sleep apnea (adult) (pediatric) Osteopenia of neck of femur, unspecified laterality Status post VNS (vagus nerve stimulator) placement Other postprocedural status Other osteoporosis, unspecified pathological fracture presence (CMS/HCC) Drug-induced osteoporosis (CMS/HCC) Other osteoporosis Focal epilepsy with impairment of consciousness, intractable (CMS/HCC)- Primary Localization-related (focal) (partial) epilepsy and epileptic syndromes with simple partial seizures, with intractable epilepsy Status post VNS (vagus nerve stimulator) placement Other postprocedural status DOUG (obstructive sleep apnea) Obstructive sleep apnea (adult) (pediatric) Osteopenia of neck of femur, unspecified laterality Other osteoporosis, unspecified pathological fracture presence (CMS/HCC) Drug-induced osteoporosis (CMS/HCC) Other osteoporosis Focal epilepsy with impairment of consciousness, intractable (CMS/HCC)- Primary Localization-related (focal) (partial) epilepsy and epileptic syndromes with simple partial seizures, with intractable epilepsy Status post VNS (vagus nerve stimulator) placement Other postprocedural status DOUG (obstructive sleep apnea) Obstructive sleep apnea (adult) (pediatric) Osteopenia of multiple sites 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 * Lacerations: Adhesives (American) * Abrasions (American) * Contusion (American) * Nose Fracture (American) [facility] No data available for this section [facility] Discharge instructions Additional Instructions CT brain negative. 6 saira were placed. Dilantin level 14.5. Depakote level 44. Follow-up with your PCP in 10 days for staple removal.[facility] Work Phone: Progress note No data available for this section [facility]arrative)No reason for referral information availableWSheltering Arms [facility] Work Phone: Summary Purpose Family History No Family History Records FoundUnknown Family Member Name Dates Details Family history of hypertensi on: Other(V17.49, Z82.49) Status:Active Family history of diabetes m ellitus: Other(V18.0, Z83.3) Status:Active Unknown Family Member Name Dates Details Family history of hypertensi on: Other(V17.49, Z82.49) Status:Active Family history of diabetes m ellitus: Other(V18.0, Z83.3) Status:Active Unknown Family Member Name Dates Details Family history of hypertensi on: Other(V17.49, Z82.49) Status:Active Family history of diabetes m ellitus: Other(V18.0, Z83.3) Status:Active Relationship Condition Age at Onset Recorded Date/T marcial mother Malignant neoplasm o f female genital organ Unknown Diabetes mellitus Unknown Hypertension Unknown Malignant hyperthermia due to anesthesia Unknown Hyperlipidemia Unknown Sleep apnea Unknown Macular degeneration Unknown grandmother Macular degeneration Unknown Advance Directives No Advanced Directives Records FoundDocuments on File Type Date Recorded Patient Scrap Stripper Hand Expl anation Advance Directives and Living Will Power of Fire Pilot Documents on File Type Date Recorded Patient Scrap Stripper Hand Expl anation Advance Directives and Living Will Power of Fire Pilot Documents on File Type Date Recorded Patient Scrap Stripper Hand Expl anation ACP-Advance Directive ACP-Power of Fire Pilot Advance Directive Response Recorded Date/ Time Living Will No March 18 4:41pm Power of Fire Pilot No March 18, 2020 4:41pm Advance Directive Response Recorded Date/ Time Do you have a Healthcare Power of Fire Pilot? Yes August 17, 2024 6:33pm Procedure Findings Note Post Operative Note: PreOp D iagnosis: Medically intractable seizure, intraoperative programming, first hour Post-Procedure Diagnosis: same Procedure: Vagal nerve stimulator generator exchange Intraoperative programming, three variables, first hour Surgeon: Alice Herndon Resident/Fellow/Other Market Risk Manager: Noemy Caro Anesthesia: MAC Estimated Blood Loss (mL): 5cc Specimen: no Complications: None Findings: Aspire generator in place Patient Returned To/Condition: PACU, stable Implants: Aspire 106 generator Operative Report Dictated: Dictation: not applicable - note contains Operative Report Note Recipients: EDIL BRUSH Mark, MD Operative Report: INDICATIONS: HO medically intractable seizures with benefit from VNS and desire to change battery to maintain improved seizure control. We discussed the risks and benefits to include, but not be limited to, bleeding; infection; damage to surrounding structures including nerves, blood vessels, muscle and the existing neuro-stimulator array; (more content not included)... 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 EST CARE - PPW SENT October 01, 2024 12:55pm Reason for Visit Admit Date Establishing care with new doctorleeanne for October 01, 2024 12:55pm Seizure disorder October 01, 2024 12:5 5pm Additional Source Comments (unrecognized sect ion and content) No Status Records FoundNo Status Records FoundNo Status Records FoundNo Status Records FoundNo Status Records FoundNo Status Records FoundNo Status Records FoundNo Status Records FoundNo Status Records FoundNo Status Records FoundNo Status Records FoundNo Status Records FoundNo Status Records FoundNo Status Records FoundNo Status Records FoundNo Status Records Found INFORMATION SOURCE (unrecogn ized section and content) DATE CREATED AUTHOR 12/12/2018 [facility] DATE CREATED AUTHOR AUTHOR'S ORGANIZ ATION 06/17/2021 [employer] DATE CREATED AUTHOR AUTHOR'S ORGANIZ ATION 10/15/2021 [facility] DATE CREATED AUTHOR AUTHOR'S ORGANIZ ATION 08/07/2023 Isabel Mccurdy [facility] DATE CREATED AUTHOR AUTHOR'S ORGANIZ ATION 10/26/2023 Herb Serrano [facility] DATE CREATED AUTHOR AUTHOR'S ORGANIZ ATION 08/13/2024 [facility] DATE CREATED AUTHOR AUTHOR'S ORGANIZ ATION 08/27/2024 [facility] EPIC DATE CREATED AUTHOR AUTHOR'S ORGANIZ ATION 10/02/2024 [facility] Reason for Visit (unrecogniz ed section and content) Status Reason Specialty Diagnoses / Procedures Re ferred By Contact Referred To Contact [facility] Diagnoses Obstructive sleep apnea (adult) (pediatric) Procedures HC CPAP TITRATION POLYSOMNOGRAPH <5 HRS SLEEP Edil Brush MD [address] [place] [address] [facility] [address] [place] [address] Reason Comments Facial Injury Laceration to upper lip and nose. Hx of epilepsy, lost consciousness/petit mal seizure while standing and struck face on concrete. Negative LOC after incident. Reason Onset Date Comments Med Refill 05/15/2023 Reason Onset Date Comments Med Refill 05/18/2023 Reason Comments Migraine Reason Onset Date Comments Med Refill 04/15/2024 Reason Comments VNS Reason Onset Date Comments Med Refill 07/24/2024 Care Teams (unrecognized sec tion and content) Box Icer Relationship Specialty Start Date End Date Eb Mcarthur PCP - General Family Medicine 05/20/19 Box Icer Relationship Specialty Start Date End Date Eb Mcarthur PCP - General Family Medicine 05/20/19 Box Icer Relationship Specialty Start Date End Date Eb Mcarthur PCP - General Family Medicine 05/20/19 Box Icer Relationship Specialty Start Date End Date Miranda Polanco Arturo, CHILDR[employer] SUPERVISOR-PRECISION INSTRUMENT AND TOOL MAKER [address] [place] [address] PCP - [facility] [place] 09/08/22 Eb Mcarthur DO [address] [phone] PCP - General Family Medicine 02/08/23 Box Icer Relationship Specialty Start Date End Date Miranda Polanco, CHILDREN'S [employer]CHRO[employer] SUPERVISOR-PRECISION INSTRUMENT AND TOOL MAKER [address] [place] [address] PCP - [facility] [place] 09/08/22 Eb Mcarthur DO [address] [phone] PCP - General Family Medicine 02/08/23 Team Status: Active Member Role Status Zenaida MCARTHUR Primary Care Provider Active Team Status: Inactive Member Role Status BLUE Lewis Primary Care Provider Active LISA SOLO Attending Provider Active Box Icer Relationship Specialty Start Date End Date Eb Mcarthur DO [address] [phone] PCP - General Family Medicine 02/08/23 Box Icer Relationship Specialty Start Date End Date Eb Mcarthur DO [address] [phone] PCP - General Family Medicine 02/08/23 Box Icer Relationship Specialty Start Date End Date Eb Mcarthur DO [address] [place] [phone] PCP - General Family Medicine 02/08/23 Box Icer Relationship Specialty Start Date End Date Eb Mcarthur DO [address] [place] [phone] PCP - General Family Medicine 02/08/23 Box Icer Relationship Specialty Start Date End Date Eb Mcarthur DO [address] [facility] [place] [phone] PCP - General Family Medicine 02/08/23 Box Icer Relationship Specialty Start Date End Date Eb Mcarthur DO [address] [facility] [place] [phone] PCP - General Family Medicine 02/08/23 Box Icer Relationship Specialty Start Date End Date Eb Mcarthur DO [address] [facility] [place] [phone] PCP - General Family Medicine 02/08/23 Team Status: Active Member Role Status Dates EDIL BRUSH Primary Care Provider Active Team Status: Inactive Member Role Status Dates Dr. Joesph Vivar DO Emergency Provider Active Start : August 17, 2024 End: August 17, 2024 LISA GALINDO Primary Care Provider Active Start: August 17, 2024 End: August 17, 2024 Box Icer Relationship Specialty Start Date End Date Eb Mcarthur DO PCP - General Family Medicine 02/08/23 Team Status: Inactive Member Role Status Dates Dr. Joesph Vivar DO Attending Provider Active Start : August 17, 2024 End: August 17, 2024 Dr. Joesph Vivar DO Emergency Provider Active Start : August 17, 2024 End: August 17, 2024 LISA GALINDO Primary Care Provider Active Start: August 17, 2024 End: August 17, 2024 Team Status: Inactive Member Role Status Dates Dr. Diamond Diez MD Attending Provider Active Start: October 01, 2024 End: October 01, 2024 LISA GALINDO Primary Care Provider Active Start: October 01, 2024 End: October 01, 2024 LISA GALINDO Referring Provider Active Start: Camila linda 2024 End: October 01, 2024 Ordered Prescriptions (unrec ognized section and content) Prescription Sig Dispensed Refills Start Date End Da te cephALEXin (KEFLEX) 500 MG capsule Take 1 capsule by mouth 2 times daily for 7 days 14 capsule 0 11/30/2022 12/07/2022 Scheduled Active and Recently Administ ered Medications (unrecognized section and content) Medication Order 11/28/2022 11/29/2022 11/30/2022 cephALEXin (KEFLEX) capsule 500 mg (COMPLETED) 500 mg, Oral, ONCE, 1 dose, On Mon11/30/22 at 1451, Antimicrobial Indications: Skin and Soft Tissue Infection 1513 (Given - Provid er: Prateek Rice RN) phenytoin (DILANTIN) ER capsule 100 mg (COMPLETED) 100 mg, Oral, ONCE, 1 dose, On Mon11/30/22 at 1451, Tube feeding interaction, obtain physician order to manage. Recommend holding TF for 1 hour before and 1 hour after dose. 1513 (Given - Provid er: Prateek Rice RN) Goals (unrecognized section and content) Goals may be documented in a n alternate section FOR RECORDS PERTAINING TO PATIENTS WHO ARE OR HAVE BEEN ENROLLED IN A CHEMICAL DEPENDENCY/SUBSTANCEABUSE PROGRAM, SOME INFORMATION MAY BE OMITTED. This clinical summary was aggregated from multiple sources. Caution should be exercised in using it in the provision of clinical care. This summary normalizes information from multiple sources, and as a consequence, information in this document may materially change the coding, format and clinical context of patient data. In addition, data may be omitted in some cases. CLINICAL DECISIONS SHOULD BE BASED ON THE PRIMARY CLINICAL RECORDS. [facility] provides no warranty or guarantee of the accuracy or completeness of information in this document.
== END | disposition home or self-care (01) ==
LOC: BIMLAB 08:57
PROVIDERS: PCP Internal Medicine; Referring Provider Internal Medicine; Visit Provider Internal Medicine
DX: G40.909 Epilepsy, unspecified, not intractable, without status epilepticus (principal); Z13.6 Encounter for screening for cardiovascular disorders
CPT/HCPCS: 36415; 80053; 80061; 85025

== ENCOUNTER 2024-10-08 21:26 | Emergency (ER) | payer MEDICARE, SELFPAY ==
[2024-10-08 21:26] VITALS: BP 118/80; PULSE 90; RESP 14; TEMP 36.6; O2SAT 98; BMI 23.1
--- NOTE | 2024-10-08 22:50 | CT_ITS ---
PROCEDURE: BRAIN/HEAD WITHOUT CONTRAST 10/08/2024 REASON FOR EXAM: HEAD INJURY TECHNIQUE: BRAIN/HEAD WITHOUT CONTRAST Coronal and Sagittal reconstruction series were provided. One or more dose reduction techniques were used (e.g., Automated exposure control, adjustment of the mA and/or kV according to patient size, use of iterative reconstruction technique. RADIATION DOSE SUMMARY: CTDlvol: 44.99 mGy DLP: 897.35 mGycm COMPARISON: 08/17/2024. FINDINGS: The ventricles are normal in size and midline in position. No evidence of acute hemorrhage or infarction. No extra-axial blood or fluid collections. The paranasal sinuses and mastoid air cells are clear. The calvarial vault and skull base are intact. CT/Brain/Head without Contrast IMPRESSION: No acute intracranial abnormalities. Reading Location: [place] [address]
--- NOTE | 2024-10-08 22:50 | CT_ITS ---
PROCEDURE: BRAIN/HEAD WITHOUT CONTRAST 10/08/2024 REASON FOR EXAM: HEAD INJURY TECHNIQUE: BRAIN/HEAD WITHOUT CONTRAST Coronal and Sagittal reconstruction series were provided. One or more dose reduction techniques were used (e.g., Automated exposure control, adjustment of the mA and/or kV according to patient size, use of iterative reconstruction technique. RADIATION DOSE SUMMARY: CTDlvol: 44.99 mGy DLP: 897.35 mGycm COMPARISON: 08/17/2024. FINDINGS: The ventricles are normal in size and midline in position. No evidence of acute hemorrhage or infarction. No extra-axial blood or fluid collections. The paranasal sinuses and mastoid air cells are clear. The calvarial vault and skull base are intact. CT/Brain/Head without Contrast IMPRESSION: No acute intracranial abnormalities. Reading Location: [place] [address]
--- NOTE | 2024-10-08 23:46 | EX.ED.DYSGE1 ---
HPI History of Present Illness Chief Complaint: Head Injury Informant: patient and spouse/S.O. Narrative Narrative: Patient is a 49-year-old male with past medical history of obstructive sleep apnea as well as epilepsy. He and states that he was outside mowing the yard today when the next thing he remembers he was waking up on the ground/concrete and struck the back of his head. Patient states he does not remember falling and therefore believes he had a breakthrough seizure. He states that he sustained a laceration to the back of his head. He reports his tetanus status was updated roughly 1 month ago. He denies any headache change in vision nausea or vomiting. He denies any blood thinner use. He states he has concern for underlying head injury because of the trauma and potential need for closure of the laceration. He reports he is not significantly concerned with a breakthrough seizure as his values were recently checked and were within normal limits. Other than the head injury patient denies any other trauma associated with the fall [facility] Medical History (Updated 10/09/24 @ 05:[address] Otilio Braden DO) Sleep apnea Seizure Epilepsy Home Medications ?Medication ?Instructions ?Recorded ?Last Taken ?Type cetirizine 10 mg tablet 10 mg PO DAILY 03/18/20 Unknown History [id number] C-Mn 750 1 ea PO DAILY 03/18/20 Unknown History mg-600 mg-55 mg-5 mg tablet clorazepate dipotassium 3.75 mg 3.75 mg PO BID 08/17/24 Unknown History tablet multivitamin (Daily Multi-Vitamin 1 tab PO DAILY 08/17/24 Unknown History tablet) calcium carbonate 600 mg PO QDAY 10/01/24 Unknown History citric acid-D gluconic acid ea irrigation 10/01/24 Unknown History irrigation powder divalproex 500 mg tablet,extended See Rx Instructions PO BID 10/01/24 Unknown History release 24 hr phenytoin sodium extended 100 mg 100 mg PO .COMPLEX 10/01/24 Unknown History capsule topiramate 200 mg tablet 600 mg PO .COMPLEX 10/01/24 Unknown History Allergy/AdvReac Type Severity Reaction Status Date / Time No Known Allergies Allergy Verified 10/08/24 21:27 Family History Mother Gynecologic cancer Diabetes Hypertension Malignant hyperthermia due to anesthesia Hyperlipidemia Sleep apnea Macular degeneration Grandmother Macular degeneration Surgical History S/P vasectomy S/P nasal septoplasty H/O uvulectomy S/P placement of VNS (vagus nerve stimulation) device Social History (Updated 10/01/24 @ 13:[address] 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 pets and animals: Yes (2) pets and animals: cat(s) sexually active: No Smoking Status: Never smoker alcohol intake: never substance use type: does not use caffeine: Yes (a couple times a week) Type: tea what type of physical activity do you participate in: walking and bicycling frequency: 5-6 times per week do you feel safe at home: Yes ROS ROS ED Constitutional Constitutional ED: Denies chills or fever(s) Eyes Eyes: Denies blurry vision or change in vision ENT ENT ED: Denies sore throat Cardiovascular Cardiovascular: Denies chest pain Respiratory/Chest Respiratory/Chest: Denies cough or dyspnea Gastrointestinal Gastrointestinal: Denies abdominal pain, diarrhea, nausea or vomiting Genitourinary Genitourinary ED: Denies dysuria Musculoskeletal Musculoskeletal: Denies back pain or neck pain Integumentary Reports other Details: Positive scalp laceration Neurologic Neurologic: Reports other Details: Positive seizure ; Denies headache(s), paresthesias or weakness Hematologic/Lymphatic Hematologic/Lymphatic: Denies easy bleeding or easy bruising EXAM Physical Exam Const Vital Signs: 10/08/24 21:26 10/08/24 23:53 10/08/24 23:59 Temperature 98 F 98 F Temperature Source Temporal Pulse Rate 90 81 Respiratory Rate 14 16 Respiratory Effort Normal Blood Pressure 118/80 104/72 Blood Pressure Mean 92 82 Pulse Ox 98 100 Oxygen Delivery Method Room Air Positive well nourished and well developed General Appearance ED: well developed HEENT HEENT Narrative: Patient has a 3 x 4 cm hematoma to the occipital portion of the scalp. In the center of the hematoma is a 3 cm subcutaneous layer deep jagged irregular laceration with no foreign body and minimal ooze of blood No signs of depressed or basilar skull fracture Eyes PERRL and EOMs intact bilaterally Neck supple Neck Narrative: No bony deformity or step-off of the cervical spine no midline tenderness to palpation Chest Wall palpation of chest normal Resp normal respiratory effort and clear to auscultation bilaterally Cardio regular rate and regular rhythm Back/Spine Back/Spine Narrative: No bony deformity or step-off of the thoracic or lumbar spine no midline tenderness to palpation Extremity normal to inspection Neuro oriented x3, CN's II-XII intact bilaterally and no sensory deficits noted Sensorium / Orientation: alert Motor Exam: strength 5/5 throughout Psych mental status grossly normal Skin Skin Narrative: Hematoma and laceration to the occipital portion of the scalp as documented above MDM MDM MDM Narrative Medical decision making narrative: Patient arrived to the ER with stable vitals and normal neurologic exam. He reported striking his head and was amnestic to the event. Patient could have had a mechanical fall and the trauma led to amnesia. However with his history of epilepsy and the fact that there are no defensive wounds and the patient does not remember the event he most likely had breakthrough seizure causing him to fall and strike the back of his head. I discussed with patient and spouse that we could check levels as well as causes of a breakthrough seizure such as kidney function and electrolyte. They report this was done recently and they were all normal and therefore they do not want laboratory testing. They do have concern for underlying head injury however and therefore a head CT was ordered. CT revealed no sign of skull fracture or traumatic subarachnoid or subdural hemorrhage. Therefore the wound was closed as documented below and patient is otherwise safe for discharge as there is been no further seizure activity present while in the ER Patient had the scalp cleaned with hydrogen peroxide and chlorhexidine. It was anesthetized with 6 mL of 2% lidocaine with epinephrine and local fashion. The wound was copiously irrigated with normal saline. Then 12 jeremy were placed bringing the wound edges together well with good approximation. Patient tolerated procedure without complication History & Record Review Discussion w/independent historian: Patient and Significant other Radiography Diagnostic Testing: Clinical Impression(s) from Imaging Studies Brain CT 10/08/24 22:50 IMPRESSION: No acute intracranial abnormalities. Reading Location: [place] [id number] Discharge Plan Triage Chief Complaint: Head Injury ED Provider: Otilio Braden Dx/Rx/DC Orders Clinical Impression: Occipital scalp laceration, Head injury, Epilepsy, Obstructive sleep apnea Instructions: ED Head Injury (Adult), ED Laceration Scalp Stitches or Jeremy Prescriptions: No Action calcium carbonate 600 mg calcium (1,500 mg) tablet 600 mg PO QDAY citric acid-D gluconic acid Powder irrigation cetirizine 10 MG tablet 10 mg PO DAILY [id number] C-Mn 1 EACH tablet 1 ea PO DAILY divalproex 500 mg tablet extended release 24 hr See Rx Instructions PO BID Rx Instructions: 1250mg in the am, 1500mg pm 2.5tabs 3tabs phenytoin sodium extended 100 mg capsule 100 mg PO .COMPLEX Rx Instructions: 200 mg orally 2tabs qhs,; 1tab qod alternating w/ 2 tabs topiramate 200 mg tablet 600 mg PO .COMPLEX Rx Instructions: 2tabs in the am 3tabs at night multivitamin [Daily Multi-Vitamin] Tablet 1 tab PO DAILY clorazepate dipotassium 3.75 mg tablet 3.75 mg PO BID Primary Care Provider: Diamond Diez Referrals: Diamond Diez MD [Primary Care Provider] - Activity Restrictions/Additional Instructions: Please return to the ER or see your family doctor in 10 to 14 days for staple removal. Print Language: Bangladeshi Disposition Disposition: Home, Self Care Discharge Date/Time: 10/09/24 00:01
[2024-10-08 23:53] VITALS: BP 104/72; PULSE 81; RESP 16; TEMP 36.6; O2SAT 100
[2024-10-08] MEDS: Lidocaine 2% /Epi 1:100 (20ml) 20 ML VIAL INFILT (23:57)
== END 2024-10-09 00:01 | disposition home or self-care (01) ==
PROVIDERS: Emergency Provider Emergency Medicine; PCP Internal Medicine; Visit Provider Emergency Medicine
DX: S01.01XA Laceration without foreign body of scalp, initial encounter (principal); G40.909 Epilepsy, unspecified, not intractable, without status epilepticus; G47.33 Obstructive sleep apnea (adult) (pediatric); S09.90XA Unspecified injury of head, initial encounter; X58.XXXA Exposure to other specified factors, initial encounter; Y93.89 Activity, other specified; Y92.096 Garden or yard of other non-institutional residence as the place of occurrence of the external cause; Z79.899 Other long term (current) drug therapy; Z98.52 Vasectomy status
CPT/HCPCS: 12002; 70450; 99282